=== PATIENT | female | born 1945 | race Caucasian/White ===

== ENCOUNTER 2017-07-09 01:02 | Emergency (ER) | payer MEDICARE ==
[~2017-07-09] VITALS: Ht 172.7 cm; Wt 74.4 kg
[~2017-07-09 01:02] MED LIST: ALBU2.5V12 NEB; ALBU8.5H7 IH; ARFO15VI NEB; ATOR20TA PO; CLON0.1T PO; HYDR25TA9 PO; IPRA0.2S34 IH; LISI-410 PO; LISI10TA2 PO; LORA1TAB PO; NIFE30TA9 PO; PRAV20TA2 PO; PRED10TA PO; PRED5TAB PO
[2017-07-09] MEDS ORDERED: LACTATED RINGERS IV STA (01:14)
--- NOTE | 2017-07-09 01:17 | ER.PDOC ---
General Chief Complaint: Abdomen Pain Stated Complaint: ABD PAIN Time seen by MD: 01:16 Source: patient Exam Limitations: no limitations History of Present Illness Initial Comments Upper abdominal pain Timing/Duration: 1-3 hours Severity/Quality: moderate Radiation: no radiation Associated Symptoms: denies symptoms Exacerbated by: nothing Relieved By: nothing Allergies: Coded Allergies: Penicillins (Verified Allergy, Severe, BLACKS OUT, 10/11/16) meperidine HCl (Verified Allergy, Severe, STOPS HEART, 10/11/16) codeine (Verified Allergy, Intermediate, RASH, 10/11/16) Home Meds Reported Medications Albuterol Sulfate (ALBUTEROL SULFATE) 2.5 Mg/0.5 Ml Vial.neb, 1 VIAL NEB Q6 Y for SHORTNESS OF BREATH, #120 VIAL 5 Refills 09/20/16 Prednisone (PREDNISONE) 10 Mg Tablet, 10 MG PO DAILY Y for ASTHMA ATTACK, TABLET 07/15/16 Prednisone (PREDNISONE) 5 Mg Tablet, 5 MG PO DAILY Y for COLD, TABLET X7 DAYS 07/15/16 Lorazepam (LORAZEPAM) 1 Mg Tablet, 1 TAB PO DAILY Y for ANXIETY, #90 TAB 07/15/16 Hydrochlorothiazide (HYDROCHLOROTHIAZIDE) 25 Mg Tablet, 1 TAB PO DAILY, #30 TAB 5 Refills 07/15/16 Atorvastatin 20MG (LIPITOR 20MG) 20 Mg Tablet, 1 TAB PO HS, #90 TAB 1 Refill 07/15/16 Arformoterol Tartrate (BROVANA) 15 Mcg/2 Ml Vial.neb, 1 VIAL NEB BID, #320 MILLILITER 3 Refills 05/28/16 Ipratropium [place] (IPRATROPIUM BROMIDE) 0.2 Mg/1 Ml Solution, 0.2 MG IH BID 07/27/15 Albuterol Sulfate (PROAIR HFA) 8.5 Gm Hfa.aer.ad, 8.5 GM IH QID 07/27/15 Vital Signs First Vital Signs Date Time Temp Pulse Resp B/P (MAP) Pulse Ox O2 Delivery O2 Flow Rate FiO2 07/09/17 01:03 98.2 120 16 94 Last Vital Signs Date Time Temp Pulse Resp B/P (MAP) Pulse Ox O2 Delivery O2 Flow Rate FiO2 07/09/17 01:08 98.2 07/09/17 01:03 120 16 94 Past Medical History Medical History: cardiac problems, COPD, hypertension Surgical History: cardiac cath, stent Social History Smoking: non-smoker Alcohol Use: none Drug Use: none Constitutional: no symptoms reported EENTM: no symptoms reported Respiratory: no symptoms reported Cardiovascular: no symptoms reported Gastrointestinal: see HPI All Other Systems: Reviewed and Negative Physical Exam General Appearance: No Apparent Distress, WD/WN HEENT: PERRL/EOMI, Normal ENT Inspection, TMs Normal, Pharynx Normal Neck: Non-Tender, Full Range of Motion, Supple, Normal Inspection Respiratory: chest non-tender, lungs clear, normal breath sounds, no respiratory distress, no accessory muscle use Cardiovascular: Normal Peripheral Pulses, Regular Rate, Rhythm, No Edema, No Gallop, No JVD, No Murmur Gastrointestinal: Normal Bowel Sounds, No Organomegaly, No Pulsatile Mass, Tenderness (mild tenderness upper abdomen) Back: Normal Inspection, No CVA Tenderness, No Vertebral Tenderness Extremities: Normal Range of Motion, Non-Tender, Normal Inspection, No Pedal Edema, No Calf Tenderness, Normal Capillary Refill, Pelvis Stable 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, No Motor/Sensory Deficits, Alert, Normal Mood/Affect, Oriented x 3 Skin: Normal Color, Warm/Dry Lymphatic: No Adenopathy EKG/XRAY/CT/US EKG Comments: sinus tachycardia CT Comments: Nothing acute on CT abdomen/pelvis Course Blood Pressure Systolic: 161 Blood Pressure Diastolic: 83 Blood Pressure Mean: 109 Departure Time of Disposition: 03:46 Disposition: 01 HOME, SELF-CARE Impression: Primary Impression: Nonspecific abdominal pain Additional Impression: Hypokalemia Condition: Stable Referrals: KALPESH BARRIOS CORPORATE FINANCIAL ANALYST (PCP) PRIMARY CARE PROVIDER Additional Instructions: Nexium Potassium chloride F/U with your PCP in 2-3 days Duration or Time Spent with Pa: 2 hours Problem Qualifiers EVA MOSELEY MD Jul 09, 2017 01:17
[2017-07-09 01:28] LABS: BASOPHIL # 0.1 10^3/uL (0.0-0.1); BASOPHIL % 0.6 % (0.0-0.2); EOSINOPHIL # 0.5 10^3/uL (0.0-0.2); EOSINOPHIL % 4.8 % (0.0-5.0); HEMOGLOBIN 12.4 g/dL (12.0-15.0); LYMPHOCYTES # 3.2 10^3/uL (1.0-4.8); LYMPHOCYTES % 29.2 % (24.0-44.0); MEAN CELL HGB 29.3 pg (26-34); MEAN CELL HGB CONCENTRATION 31.5 g/dL (33-37); MEAN CORP VOLUME 93.1 fL (78-100); MEAN PLATELET VOLUME 10.7 fL (7.8-11.0); MONOCYTES # 1.1 10^3/uL (0.3-0.8); MONOCYTES % 9.7 % (5.0-12.0); NEUTROPHILS % 55.3 % (41.0-85.0); RED CELL DISTRIBUTION WIDTH 15.4 % (11.5-14.5); WHITE BLOOD CELL 10.9 10^3/uL (4.5-11.0)
[2017-07-09 01:36] LABS: BILIRUBIN,URINE NEGATIVE (NEGATIVE); UROBILINOGEN,URINE NORMAL (NEGATIVE)
--- NOTE | 2017-07-09 01:40 | PCM.EKG ---
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
[2017-07-09 01:46] LABS: CALCIUM 9.9 mg/dL (8.4-10.5); CARBON DIOXIDE 30.1 mmol/L (20.0-32)
[2017-07-09 01:48] LABS: APPEARANCE,URINE CLEAR (CLEAR); UA COLOR YELLOW (YELLOW)
[2017-07-09 02:10] VITALS: BP 141/76
[2017-07-09 03:01] LABS: WBC,URINE 0-2 WBC/HPF (0-2)
[2017-07-09 03:10] VITALS: BP 141/76
--- NOTE | 2017-07-09 03:36 | DIREP ---
PROCEDURE:CT ABDOMEN/PELVIS W/O CONTRAST COMPARISON:[facility], CT, CT ABD/PELVIS W/ CONTRAST, 05/28/2016, 09:24 AM. INDICATIONS:Upper abdominal pain TECHNIQUE:Axial images were created through the abdomen and pelvis without intravenous contrast material. No oral contrast was administered. Sagittal and coronal reconstructions were performed from source images. FINDINGS: LUNG BASES:Normal. No visible pulmonary or pleural disease. LIVER:Normal. No significant liver lesions are identified. BILIARY:Normal. No visible dilatation or calcification. PANCREAS:Normal. No lesion, fluid collection, ductal dilatation, or atrophy. SPLEEN:Normal. No enlargement or focal lesion. ADRENALS:Normal. No mass or enlargement. URINARY TRACT:Normal. No urinary calculi pre No focal lesions or hydronephrosis. AORTA/VASCULAR:There are aortic atherosclerotic calcifications present. No aneurysm. RETROPERITONEUM:Normal. No mass or adenopathy. BOWEL/MESENTERY:Prior appendectomy. Prior distal colectomy. No obstruction, free air, or free fluid. ABDOMINAL WALL:Inferior ventral hernia repair since the prior examination. Supraumbilical ventral hernia containing only fat. PELVIC ORGANS:The uterus is surgically absent. No visible mass. BONES:Normal for age. No bony lesion or acute fracture. OTHER:Moderate size hiatal hernia. CONCLUSION: 1. No acute abdomen/pelvis abnormalities. 2. Moderate size hiatal hernia. 3. Fat containing supraumbilical ventral hernia. 4. Prior appendectomy, distal colectomy, ventral hernia repair, and hysterectomy. Dictated by: Willian Garcia M.D. on 07/09/2017 at 03:24 AM
[2017-07-09] MEDS ORDERED: KLOR-CON 10 PO STA (03:48)
[2017-07-09] MEDS ORDERED: LIDOCAINE VISCOUS MM STA (03:51)
[2017-07-09] MEDS ORDERED: MYLANTA PO STA (03:51)
[2017-07-09] MEDS ORDERED: LIDOCAINE VISCOUS ONE (03:53)
[2017-07-09] MEDS ORDERED: MYLANTA ONE (03:54)
[2017-07-09] MEDS ORDERED: KLOR-CON 10 PO ONE (03:54)
[2017-07-09 04:06] VITALS: BP 141/76
== END 2017-07-09 04:02 | disposition home or self-care (01) ==
LOC: EDBD 01:02 → ER 01:02
DX: R10.10 Upper abdominal pain, unspecified (principal); E87.6 Hypokalemia; I10 Essential (primary) hypertension; J44.9 Chronic obstructive pulmonary disease, unspecified; Z88.0 Allergy status to penicillin; Z88.5 Allergy status to narcotic agent; Z79.899 Other long term (current) drug therapy
CPT/HCPCS: 36415; 74176; 80053; 81000; 83690; 85025; 85610; 85730; 93005; 99285; J3480; J3490

== ENCOUNTER 2017-08-19 17:21 | Emergency (ER) | payer MEDICARE ==
[~2017-08-19] VITALS: Ht 170.2 cm; Wt 91.2 kg
[2017-08-19 17:44] VITALS: BP 151/85
[2017-08-19] MEDS ORDERED: DUONEB 0.5 MG-3 MG/3 ML SOLN IH STA (17:56)
[2017-08-19] MEDS ORDERED: DECADRON IH STA (17:56)
--- NOTE | 2017-08-19 17:59 | ER.PDOC ---
General Chief Complaint: Dyspnea/Respdistress Stated Complaint: SHORT OF BREATH Time seen by MD: 17:57 Source: patient Exam Limitations: no limitations History of Present Illness Initial Comments SOB for past few days Severity: moderate Prior Episodes/Possible Cause: occasional episodes, chronic episodes Modifying Factors: improves with albuterol nebulizer Associated Symptoms: cough Prior symptoms/Treatment: Similar symptoms previous Allergies: Coded Allergies: Penicillins (Verified Allergy, Severe, BLACKS OUT, 10/11/16) meperidine HCl (Verified Allergy, Severe, STOPS HEART, 10/11/16) codeine (Verified Allergy, Intermediate, RASH, 10/11/16) Home Meds Reported Medications Albuterol Sulfate (ALBUTEROL SULFATE) 2.5 Mg/0.5 Ml Vial.neb, 1 VIAL NEB Q6 Y for SHORTNESS OF BREATH, #120 VIAL 5 Refills 09/20/16 Prednisone (PREDNISONE) 10 Mg Tablet, 10 MG PO DAILY Y for ASTHMA ATTACK, TABLET 07/15/16 Prednisone (PREDNISONE) 5 Mg Tablet, 5 MG PO DAILY Y for COLD, TABLET X7 DAYS 07/15/16 Lorazepam (LORAZEPAM) 1 Mg Tablet, 1 TAB PO DAILY Y for ANXIETY, #90 TAB 07/15/16 Hydrochlorothiazide (HYDROCHLOROTHIAZIDE) 25 Mg Tablet, 1 TAB PO DAILY, #30 TAB 5 Refills 07/15/16 Atorvastatin 20MG (LIPITOR 20MG) 20 Mg Tablet, 1 TAB PO HS, #90 TAB 1 Refill 07/15/16 Arformoterol Tartrate (BROVANA) 15 Mcg/2 Ml Vial.neb, 1 VIAL NEB BID, #320 MILLILITER 3 Refills 05/28/16 Ipratropium [place] (IPRATROPIUM BROMIDE) 0.2 Mg/1 Ml Solution, 0.2 MG IH BID 07/27/15 Albuterol Sulfate (PROAIR HFA) 8.5 Gm Hfa.aer.ad, 8.5 GM IH QID 07/27/15 Past Medical History Medical History: COPD, hypertension Surgical History: appendectomy, hysterectomy, other LMP (females 10-50): hysterectomy Social History Smoking: non-smoker Alcohol Use: none Drug Use: none Review of Systems Constitutional: no symptoms reported Respiratory: see HPI Cardiovascular: no symptoms reported Gastrointestinal: no symptoms reported Genitourinary: no symptoms reported Musculoskeletal: no symptoms reported All Other Systems: Reviewed and Negative Physical Exam General Appearance: No Apparent Distress, WD/WN HEENT: PERRL/EOMI, Normal ENT Inspection, TMs Normal, Pharynx Normal Neck: Non-Tender, Full Range of Motion, Supple, Normal Inspection Respiratory: chest non-tender, lungs clear, no respiratory distress, decreased breath sounds Cardiovascular: Normal Peripheral Pulses, Regular Rate, Rhythm, No Edema, No Gallop, No JVD, No Murmur Gastrointestinal: Normal Bowel Sounds, No Organomegaly, No Pulsatile Mass, Non Tender, Soft Extremities: Normal Range of Motion, Non-Tender, Normal Inspection, No Pedal Edema, No Calf Tenderness, Normal Capillary Refill 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, No Motor/Sensory Deficits, Alert, Normal Mood/Affect, Oriented x 3 Skin: Normal Color, Warm/Dry Lymphatic: No Adenopathy Results/Orders Results/Orders Laboratory Tests Test 08/19/17 18:05 White Blood Count 9.7 10^3/uL (4.5-11.0) Red Blood Count 4.23 10^6/uL (4.00-5.20) Hemoglobin 12.1 g/dL (12.0-15.0) Hematocrit 39.0 % (36.0-46.0) Mean Corpuscular Volume 92.2 fL (78-100) Mean Corpuscular Hemoglobin 28.6 pg (26-34) Mean Corpuscular Hemoglobin Concent 31.0 g/dL (33-37) Red Cell Distribution Width 15.5 % (11.5-14.5) Platelet Count 331 10^3/uL (150-400) Mean Platelet Volume 10.3 fL (7.8-11.0) Neutrophils (%) (Auto) 68.2 % (41.0-85.0) Lymphocytes (%) (Auto) 12.5 % (24.0-44.0) Monocytes (%) (Auto) 8.2 % (5.0-12.0) Neutrophils # (Auto) 6.6 10^3/uL (1.8-7.7) Lymphocytes # (Auto) 1.2 10^3/uL (1.0-4.8) Monocytes # (Auto) 0.8 10^3/uL (0.3-0.8) Absolute Immature Granulocyte (auto 0.06 10^3 u/L (0-2) Eosinophils % 9.9 % (0.0-5.0) Basophils % 0.6 % (0.0-0.2) Basophils # 0.1 10^3/uL (0.0-0.1) Eosinophil Count 1.0 10^3/uL (0.0-0.2) Prothrombin Time 9.8 SEC (9.8-11.9) Prothrombin Time INR (Non-Therap) 1.0 Activated Partial Thromboplast Time 22.5 SEC (24.67-30.72) D-Dimer 0.57 mg/L (0.19-0.49) Sodium Level 142 mmol/L (132-145) Potassium Level 4.0 mmol/L (3.6-5.2) Chloride Level 105.0 mmol/L (96-109) Carbon Dioxide Level 26.1 mmol/L (20.0-32) Anion Gap 14.9 Blood Urea Nitrogen 18 mg/dL (7-18) Creatinine 0.99 mg/dL (0.59-1.40) Estimated GFR () 66.7 (>/=60) BUN/Creatinine Ratio 18.0 Glucose Level 114 mg/dL (70-110) Calcium Level 10.1 mg/dL (8.4-10.5) Total Bilirubin 0.4 mg/dL (0.2-1.0) Aspartate Amino Transf (AST/SGOT) 14 U/L (0-35) Alanine Aminotransferase (ALT/SGPT) 21 U/L (12-78) Alkaline Phosphatase 116 U/L (50-136) Troponin I < 0.02 ng/mL (0.00-0.05) Pro-B-Type Natriuretic Peptide 49 pg/mL (0-125) Total Protein 7.2 g/dL (6.4-8.2) Albumin 3.5 g/dL (3.4-5.0) Globulin 3.7 Percent Immature Gran (Cell Imm) 0.60 % (0.00-0.50) Administered Medications Medications (Trade) Dose Ordered Sig/Mary Route PRN Reason Start Time Stop Time Status Last Admin Dose Admin Albuterol/ Ipratropium (Duoneb 0.5 Mg-3 Mg/3 ml Soln) 3 ml STAT STAT IH 08/19/17 17:56 08/19/17 17:57 DC 08/19/17 18:08 Dexamethasone Sodium Phosphate (Decadron) 4 mg STAT STAT IH 08/19/17 17:56 08/19/17 17:57 DC 08/19/17 18:08 Progress Progress Patient feeling better. EKG/XRAY/CT/US EKG Comments: Normal XRAY: chest (COPD) Departure Time of Disposition: 19:11 Disposition: 01 HOME, SELF-CARE Impression: Primary Impression: COPD exacerbation Condition: Improved Referrals: KALPESH BARRIOS INDUSTRIAL HEALTH AND SAFETY PROFESSOR (PCP) PRIMARY CARE PROVIDER Additional Instructions: Bactrim DS Prednisone Continue breathing treatments at home F/U with your PCP in 2-3 days Duration or Time Spent with Pa: 90 mins EVA MOSELEY MD Aug 19, 2017 17:59
[2017-08-19] MEDS ORDERED: DECADRON ONE (18:00)
[2017-08-19] MEDS ORDERED: DUONEB 0.5 MG-3 MG/3 ML SOLN IH ONE (18:00)
[2017-08-19 18:16] LABS: BASOPHIL # 0.1 10^3/uL (0.0-0.1); BASOPHIL % 0.6 % (0.0-0.2); EOSINOPHIL % 9.9 % (0.0-5.0); HEMOGLOBIN 12.1 g/dL (12.0-15.0); LYMPHOCYTES # 1.2 10^3/uL (1.0-4.8); LYMPHOCYTES % 12.5 % (24.0-44.0); MEAN CELL HGB 28.6 pg (26-34); MEAN CORP VOLUME 92.2 fL (78-100); MEAN PLATELET VOLUME 10.3 fL (7.8-11.0); MONOCYTES # 0.8 10^3/uL (0.3-0.8); MONOCYTES % 8.2 % (5.0-12.0); NEUTROPHIL # 6.6 10^3/uL (1.8-7.7); NEUTROPHILS % 68.2 % (41.0-85.0); RED CELL DISTRIBUTION WIDTH 15.5 % (11.5-14.5); WHITE BLOOD CELL 9.7 10^3/uL (4.5-11.0)
--- NOTE | 2017-08-19 18:23 | PCM.EKG ---
[facility] Test Date: 2017-08-19 Test Time: 18:09:00 Pat Name: SUN ELLIS Department: Room: Gender: F Emergency Medcl Emt: : 1945 Requested By: EVA MOSELEY Order Number: [id number] Reading MD: Eva MOSELEY Measurements Intervals [place] Rate: 82 P: 61 [place]: 154 QRS: 29 QRSD: 88 T: 61 QT: 374 QTc: 436 Interpretive Statements Normal sinus rhythm Normal ECG Compared to ECG 07/09/2017 01:39:04 Sinus tachycardia no longer present Left anterior fascicular block no longer present Myocardial infarct finding no longer present Electronically Signed On 08-23-2017 5:55:17 CDT by Eva MOSELEY Please click the below link to view image of tracing.
--- NOTE | 2017-08-19 18:34 | DIREP ---
PROCEDURE:CHEST 1 VIEW COMPARISON:[facility], CR, XRAY CHEST SINGLE VW, 09/28/2016, 05:10 AM. INDICATIONS:n FINDINGS: LUNGS/PLEURA:Hyperinflation and chronic interstitial changes. No infiltrate or pleural effusion. CARDIAC:Borderline cardiac silhouette and normal pulmonary vascularity. Calcified tortuous aorta. MEDIASTINUM:Hiatal hernia. BONES:Mild degenerative changes. OTHER:No additional findings. CONCLUSION:COPD. No acute cardiopulmonary process or significant change. Dictated by: Park Osorio MD on 08/19/2017 at 06:30 PM
[2017-08-19 18:38] LABS: ALANINE AMINOTRANSFERASE(ML) 21 U/L (12-78); ALKALINE PHOSPHATASE 116 U/L (50-136); ASPARTATE AMINO TRANSFERASE 14 U/L (0-35); CALCIUM 10.1 mg/dL (8.4-10.5); CARBON DIOXIDE 26.1 mmol/L (20.0-32); GLUCOSE 114 mg/dL (70-110)
--- NOTE | 2017-08-19 19:28 | NUR ---
Patient sitting upright, voiced feeling better and ready to go home. Discharge instructions provided, prescription x2 provided. Patient connected self to portable Oxygen tank, and ambulated to waiting area to meet . Patient condition improved.
== END 2017-08-19 19:28 | disposition home or self-care (01) ==
LOC: ER 17:21
DX: J44.1 Chronic obstructive pulmonary disease with (acute) exacerbation (principal); I10 Essential (primary) hypertension; Z88.0 Allergy status to penicillin; Z88.5 Allergy status to narcotic agent; Z90.710 Acquired absence of both cervix and uterus; Z90.89 Acquired absence of other organs
CPT/HCPCS: 36415; 71045; 80053; 83880; 84484; 85025; 85379; 85610; 85730; 87040 ×2; 93005; 94640; 99285; J1100; J7620

== ENCOUNTER → 2018-04-26 | Outpatient (CLI) | payer MEDICARE ==
[~2018-04-26] MED LIST changes: +NIFE30TA15 PO; -NIFE30TA9 PO
--- NOTE | 2018-04-26 11:19 | DIREP ---
PROCEDURE:CHEST 2 VIEWS COMPARISON:[facility], CT, CT ABD/PELVIS W/O, 03/27/2018, 12:48 PM. [facility], CR, XRAY CHEST SINGLE VW, 08/19/2017, 06:06 PM. INDICATIONS:COPD, CHF, HHD FINDINGS: LUNGS/PLEURA:Mild emphysema. No significant pulmonary parenchymal abnormalities. No effusions. VASCULATURE:Normal. Unremarkable pulmonary vasculature. CARDIAC:Borderline cardiomegaly MEDIASTINUM:Atheromatous calcifications of the aortic arch. Moderate hiatal hernia BONES:Normal. No fracture or visible bony lesion. OTHER:Negative. CONCLUSION: Mild emphysema. Borderline cardiomegaly. Hiatal hernia Dictated by: Marty Ordoeñz M.D. on 04/26/2018 at 11:15 AM
== END | disposition home or self-care (01) ==
LOC: RAD 10:40
PROVIDERS: ATTEND Specialist
DX: J43.9 Emphysema, unspecified (principal); I11.0 Hypertensive heart disease with heart failure; I50.9 Heart failure, unspecified; K44.9 Diaphragmatic hernia without obstruction or gangrene; I70.0 Atherosclerosis of aorta
CPT/HCPCS: 71046

== ENCOUNTER 2018-05-03 05:33 | Emergency (ER) | payer MEDICARE ==
[~2018-05-03] VITALS: Ht 172.7 cm; Wt 76.2 kg
[2018-05-03 05:37] VITALS: BP 142/90
--- NOTE | 2018-05-03 05:38 | NUR ---
ARRIVAL PATIENT ARRIVED TO ED2 VIA GURNEY BY [facility], C/O OF SHORTNESS OF BREATH THAT STARTED THIS MORNING, ON EMS ARRIVAL PATIENT WAS TAKING A BREATHING TREATMENT AND GIVEN ONE MORE BREATHING TREATMENT BY EMS IN ROUTE TO THE ED. NO DISTRESS NOTED.
[2018-05-03] MEDS ORDERED: SOLU-MEDROL IV STA (05:45)
[2018-05-03] MEDS ORDERED: DUONEB 0.5 MG-3 MG/3 ML SOLN IH STA (05:45)
[2018-05-03 05:57] LABS: BASOPHIL % 0.3 % (0.0-0.2); EOSINOPHIL # 0.1 10^3/uL (0.0-0.2); HEMOGLOBIN 9.8 g/dL (12.0-15.0); LYMPHOCYTES # 1.8 10^3/uL (1.0-4.8); LYMPHOCYTES % 13.9 % (24.0-44.0); MEAN CELL HGB 25.8 pg (26-34); MEAN CELL HGB CONCENTRATION 29.6 g/dL (33-37); MEAN CORP VOLUME 87.1 fL (78-100); MONOCYTES # 1.1 10^3/uL (0.3-0.8); MONOCYTES % 8.4 % (5.0-12.0); NEUTROPHIL # 9.7 10^3/uL (1.8-7.7); NEUTROPHILS % 75.8 % (41.0-85.0); RED CELL DISTRIBUTION WIDTH 17.5 % (11.5-14.5); WHITE BLOOD CELL 12.8 10^3/uL (4.5-11.0)
[2018-05-03] MEDS ORDERED: DUONEB 0.5 MG-3 MG/3 ML SOLN IH ONE (06:03)
[2018-05-03] MEDS ORDERED: SOLU-MEDROL ONE (06:07)
[2018-05-03 06:18] LABS: CALCIUM 10.1 mg/dL (8.4-10.5); CARBON DIOXIDE 25.1 mmol/L (20.0-32)
[2018-05-03] MEDS ORDERED: NIFE30TA15 PO (06:18)
[2018-05-03] MEDS ORDERED: OMEP40CA6 PO (06:18)
--- NOTE | 2018-05-03 06:18 | DIREP ---
PROCEDURE:CHEST 1 VIEW COMPARISON:[facility], CT, CT ABD/PELVIS W/O, 03/27/2018, 12:48 PM. [facility], CR, XRAY CHEST 2 VWS, 04/26/2018, 10:40 AM. [facility], CR, XRAY CHEST SINGLE VW, 08/19/2017, 06:06 PM. INDICATIONS:sob FINDINGS: LUNGS/PLEURA:Mild hyperinflation with some reticular opacities in the lungs may suggest underlying emphysema. Rounded opacity in the left lung base may be artifactual given short interval appearance, measures approximately 3-4 cm, may suggest an infiltrate. 1.3 cm subtle nodular opacity in the right lung, midportion. Hazy opacity at the left costophrenic angle may be related to overlapping structures, underlying infiltrate is not excluded. No effusions. No pneumothorax. VASCULATURE:Unremarkable pulmonary vasculature. CARDIAC:Cardiomediastinal contours are unchanged. MEDIASTINUM:No visible mass or adenopathy. Calcified atherosclerosis in the thoracic arch. BONES:No fracture or visible bony lesion. OTHER:Hiatal hernia. CONCLUSION: 1. Rounded opacity in the left lung base, may be artifactual given short interval appearance. Additional smaller nodule in the right lung. Consider CT chest when clinically appropriate. Dictated by: Gianna Bess MD on 05/03/2018 at 06:12 AM
--- NOTE | 2018-05-03 06:49 | ER.PDOC ---
General Chief Complaint: Dyspnea/Respdistress Stated Complaint: ASTHMA ATTACK Time seen by MD: 05:42 Source: patient, family History of Present Illness Initial Comments Pt with h/o COPD and ASTHMA came with dyspnea and wheezing that started last night. Timing/Duration: 4-6 hours Severity: moderate Activities at Onset: activity/exertion Prior Episodes/Possible Cause: occasional episodes Modifying Factors: improves with activity Associated Symptoms: cough Prior symptoms/Treatment: Similar symptoms previous Allergies: Coded Allergies: Penicillins (Verified Allergy, Severe, BLACKS OUT, 10/11/16) meperidine HCl (Verified Allergy, Severe, STOPS HEART, 10/11/16) codeine (Verified Allergy, Intermediate, RASH, 10/11/16) Home Meds Reported Medications Nifedipine (NIFEDIPINE ER) 30 Mg Tablet.er, 1 TAB PO DAILY, #90 TAB 3 Refills 05/03/18 Omeprazole (OMEPRAZOLE) 40 Mg Capsule.dr, 1 CAP PO DAILY, #90 CAP 3 Refills 05/03/18 Albuterol Sulfate (ALBUTEROL SULFATE) 2.5 Mg/0.5 Ml Vial.neb, 1 VIAL NEB Q6 PRN for SHORTNESS OF BREATH, #120 VIAL 5 Refills 09/20/16 Prednisone (PREDNISONE) 5 Mg Tablet, 5 MG PO DAILY PRN for COLD, TABLET X7 DAYS 07/15/16 Lorazepam (LORAZEPAM) 1 Mg Tablet, 1 TAB PO DAILY PRN for ANXIETY, #90 TAB 07/15/16 Hydrochlorothiazide (HYDROCHLOROTHIAZIDE) 25 Mg Tablet, 1 TAB PO DAILY, #30 TAB 5 Refills 07/15/16 Atorvastatin 20MG (LIPITOR 20MG) 20 Mg Tablet, 1 TAB PO HS, #90 TAB 1 Refill 07/15/16 Arformoterol Tartrate (BROVANA) 15 Mcg/2 Ml Vial.neb, 1 VIAL NEB BID, #320 MILLILITER 3 Refills 05/28/16 Ipratropium [place] (IPRATROPIUM BROMIDE) 0.2 Mg/1 Ml Solution, 0.2 MG IH BID 07/27/15 Albuterol Sulfate (PROAIR HFA) 8.5 Gm Hfa.aer.ad, 8.5 GM IH QID 07/27/15 Discontinued Reported Medications Prednisone (PREDNISONE) 10 Mg Tablet, 10 MG PO DAILY PRN for ASTHMA ATTACK, TABLET 07/15/16 Past Medical History Medical History: asthma, COPD, high cholesterol, hypertension Surgical History: hysterectomy, knee, other Family History Significant Family History: no pertinent family hx Social History Smoking: non-smoker Alcohol Use: none Drug Use: none Reviewed Nursing Reviewed: Nursing Assessment Review of Systems Constitutional: see HPI EENTM: no symptoms reported Respiratory: cough, shortness of breath, wheezing Cardiovascular: no symptoms reported Gastrointestinal: no symptoms reported Genitourinary: no symptoms reported Musculoskeletal: no symptoms reported Skin: no symptoms reported Psychiatric/Neurological: no symptoms reported Endocrine: no symptoms reported Hematologic/Lymphatic: no symptoms reported All Other Systems: Reviewed and Negative Physical Exam General Appearance: No Apparent Distress, Anxious HEENT: PERRL/EOMI, Normal ENT Inspection, Pharynx Normal Neck: Non-Tender, Full Range of Motion, Supple Respiratory: chest non-tender, no respiratory distress, wheezing Cardiovascular: Normal Peripheral Pulses, Regular Rate, Rhythm, No Edema Gastrointestinal: Normal Bowel Sounds, No Organomegaly, No Pulsatile Mass, Non Tender Extremities: Normal Range of Motion, Non-Tender, Normal Inspection Neurologic/Psychiatric: No Motor/Sensory Deficits Skin: Normal Color, Warm/Dry Lymphatic: No Adenopathy Results/Orders Results/Orders Laboratory Tests Test 05/03/18 05:49 White Blood Count 12.8 10^3/uL (4.5-11.0) Red Blood Count 3.80 10^6/uL (4.00-5.20) Hemoglobin 9.8 g/dL (12.0-15.0) Hematocrit 33.1 % (36.0-46.0) Mean Corpuscular Volume 87.1 fL (78-100) Mean Corpuscular Hemoglobin 25.8 pg (26-34) Mean Corpuscular Hemoglobin Concent 29.6 g/dL (33-37) Red Cell Distribution Width 17.5 % (11.5-14.5) Platelet Count 357 10^3/uL (150-400) Mean Platelet Volume 10.0 fL (7.8-11.0) Neutrophils (%) (Auto) 75.8 % (41.0-85.0) Lymphocytes (%) (Auto) 13.9 % (24.0-44.0) Monocytes (%) (Auto) 8.4 % (5.0-12.0) Neutrophils # (Auto) 9.7 10^3/uL (1.8-7.7) Lymphocytes # (Auto) 1.8 10^3/uL (1.0-4.8) Monocytes # (Auto) 1.1 10^3/uL (0.3-0.8) Absolute Immature Granulocyte (auto 0.08 10^3 u/L (0-2) Eosinophils % 1.0 % (0.0-5.0) Basophils % 0.3 % (0.0-0.2) Basophils # 0.0 10^3/uL (0.0-0.1) Eosinophil Count 0.1 10^3/uL (0.0-0.2) Sodium Level 143 mmol/L (132-145) Potassium Level 3.9 mmol/L (3.6-5.2) Chloride Level 106.0 mmol/L (96-109) Carbon Dioxide Level 25.1 mmol/L (20.0-32) Anion Gap 15.8 Blood Urea Nitrogen 23 mg/dL (7-18) Creatinine 0.94 mg/dL (0.59-1.40) Estimated GFR () 70.6 (>/=60) BUN/Creatinine Ratio 24.0 Glucose Level 105 mg/dL (70-110) Calcium Level 10.1 mg/dL (8.4-10.5) Total Bilirubin 0.4 mg/dL (0.2-1.0) Aspartate Amino Transf (AST/SGOT) 16 U/L (0-35) Alanine Aminotransferase (ALT/SGPT) 26 U/L (12-78) Alkaline Phosphatase 89 U/L (50-136) Pro-B-Type Natriuretic Peptide 52 pg/mL (0-125) Total Protein 7.0 g/dL (6.4-8.2) Albumin 3.6 g/dL (3.4-5.0) Globulin 3.4 Percent Immature Gran (Cell Imm) 0.60 % (0.00-0.50) Administered Medications Medications (Trade) Dose Ordered Sig/Mary Route PRN Reason Start Time Stop Time Status Last Admin Dose Admin Albuterol/ Ipratropium (Duoneb 0.5 Mg-3 Mg/3 ml Soln) 3 ml STAT STAT IH 05/03/18 05:45 05/03/18 05:49 DC 05/03/18 06:14 Methylprednisolone Sodium Succinate (Solu-Medrol) 125 mg STAT STAT IV 05/03/18 05:45 05/03/18 05:49 DC 05/03/18 06:13 Progress Progress Pt was given Duoneb and Solumedrol. CXR was questinable. CT chest ordered. Care transfered to Dr Cuevas at 7. EKG/XRAY/CT/US EKG: NSR Departure Time of Disposition: 07:35 Disposition: 01 HOME, SELF-CARE Impression: Primary Impression: COPD (chronic obstructive pulmonary disease) Condition: Improved Referrals: KALPESH BARRIOS RELATIONSHIP EXECUTIVE (PCP) PRIMARY CARE PROVIDER Comments admission discussed Duration or Time Spent with Pa: 2 hrs GUANAKITO LUCAS MD May 03, 2018 06:49 MARQUES HENAO MD May 03, 2018 07:20
--- NOTE | 2018-05-03 06:56 | NUR ---
CAT SCAN PATIENT TO CAT SCAN VIA SHAYYRBRENDA WITH MITCHEL FROM RADIOLOGY.
[2018-05-03 07:03] VITALS: BP 143/91
--- NOTE | 2018-05-03 07:03 | NUR ---
CAT SCAN PATIENT BACK FROM CAT SCAN.
[2018-05-03] MEDS ORDERED: LASIX IV STA (07:15)
--- NOTE | 2018-05-03 07:25 | DIREP ---
PROCEDURE:CT CHEST W/O COMPARISON:[facility], CT, CT-ABDOMEN /PELVIS W/O CONTRAST, 05/31/2012, 00:08 AM. [facility], CT, CT ABD/PELVIS W/O, 07/09/2017, 01:31 AM. [facility], CT, CT ABD/PELVIS W/O, 03/27/2018, 12:48 PM. INDICATIONS:sob TECHNIQUE:Helical sections through the chest were performed from the lung apices through the diaphragms without IV contrast. Sagittal and coronal reconstructions are obtained from source images. FINDINGS: LUNGS:Centrilobular and paraseptal emphysema. New 4 mm nodular density on a background of atelectasis within the posterior aspect of the left lower lobe on series 4, image 44. Short-term follow-up recommended to ensure stability. Nodular foci within the left upper lobe and right middle lobe are stable dating back to 2012, compatible with benign process. PLEURA:Normal. No mass or effusion. CARDIAC:Coronary artery disease. No enlargement, pericardial thickening, or valvular calcification. MEDIASTINUM:Large hiatal hernia. TEO:No mediastinal or hilar lymphadenopathy. AORTA:Atherosclerosis. No aneurysm. CHEST WALL:Normal. No mass or axillary adenopathy. LIMITED ABDOMEN:Normal. Limited images of the upper abdomen are unremarkable. BONES:Osteopenia. No bony lesion or acute fracture. OTHER:Negative. CONCLUSION: 1. Chronic obstructive pulmonary disease type changes with new focus of nodular airspace disease in the left lower lobe posteriorly. Recommend short-term interval follow-up. 2. No acute consolidation. 3. Coronary artery disease Dictated by: Cristi Escobedo DO on 05/03/2018 at 07:13 AM
[2018-05-03] MEDS ORDERED: LASIX ONE (07:29)
[2018-05-03 08:04] VITALS: BP 134/87
[2018-05-03 08:19] VITALS: BP 134/87
--- NOTE | 2018-05-03 10:27 | PCM.EKG ---
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
== END 2018-05-03 08:04 | disposition home or self-care (01) ==
LOC: ER 05:33 → EDBD 05:33 → ER 08:04
DX: J44.9 Chronic obstructive pulmonary disease, unspecified (principal); E78.00 Pure hypercholesterolemia, unspecified; I10 Essential (primary) hypertension; Z90.710 Acquired absence of both cervix and uterus; Z88.0 Allergy status to penicillin; Z88.5 Allergy status to narcotic agent; Z79.899 Other long term (current) drug therapy
CPT/HCPCS: 36415; 71045; 71250; 80053; 82550; 82553; 83880; 84484; 85025; 93005; 94640; 96374; 96375; 99284; J2930; J7620; J1940

== ENCOUNTER 2018-05-05 01:14 | Emergency (ER) | payer MEDICARE ==
[~2018-05-05] VITALS: Ht 152.4 cm; Wt 84.5 kg
[~2018-05-05 01:14] MED LIST changes: +OMEP40CA6 PO
[2018-05-05] MEDS ORDERED: LACTATED RINGERS 1,000 ML ONE (01:32)
[2018-05-05] MEDS ORDERED: ZOFRAN ONE (01:32)
[2018-05-05] MEDS ORDERED: ZOFRAN IV STA (01:33)
[2018-05-05] MEDS ORDERED: MORPHINE SULFATE ONE (01:33)
[2018-05-05] MEDS ORDERED: LACTATED RINGERS 1,000 ML IV STA (01:33)
[2018-05-05] MEDS ORDERED: MORPHINE SULFATE IV STA (01:33)
--- NOTE | 2018-05-05 01:36 | ER.PDOC ---
General Chief Complaint: Requesting Medical Care Stated Complaint: ABD PAIN Time seen by MD: 01:34 Source: patient Exam Limitations: no limitations History of Present Illness Initial Comments Generalized abdominal pain Timing/Duration: 1-3 hours Severity/Quality: moderate Radiation: no radiation Associated Symptoms: diarrhea, nausea/vomiting Exacerbated by: nothing Relieved By: nothing Allergies: Coded Allergies: Penicillins (Verified Allergy, Severe, BLACKS OUT, 10/11/16) meperidine HCl (Verified Allergy, Severe, STOPS HEART, 10/11/16) codeine (Verified Allergy, Intermediate, RASH, 10/11/16) Home Meds Reported Medications Nifedipine (NIFEDIPINE ER) 30 Mg Tablet.er, 1 TAB PO DAILY, #90 TAB 3 Refills 05/03/18 Omeprazole (OMEPRAZOLE) 40 Mg Capsule.dr, 1 CAP PO DAILY, #90 CAP 3 Refills 05/03/18 Albuterol Sulfate (ALBUTEROL SULFATE) 2.5 Mg/0.5 Ml Vial.neb, 1 VIAL NEB Q6 PRN for SHORTNESS OF BREATH, #120 VIAL 5 Refills 09/20/16 Prednisone (PREDNISONE) 5 Mg Tablet, 5 MG PO DAILY PRN for COLD, TABLET X7 DAYS 07/15/16 Lorazepam (LORAZEPAM) 1 Mg Tablet, 1 TAB PO DAILY PRN for ANXIETY, #90 TAB 07/15/16 Hydrochlorothiazide (HYDROCHLOROTHIAZIDE) 25 Mg Tablet, 1 TAB PO DAILY, #30 TAB 5 Refills 07/15/16 Atorvastatin 20MG (LIPITOR 20MG) 20 Mg Tablet, 1 TAB PO HS, #90 TAB 1 Refill 07/15/16 Arformoterol Tartrate (BROVANA) 15 Mcg/2 Ml Vial.neb, 1 VIAL NEB BID, #320 MILLILITER 3 Refills 05/28/16 Ipratropium [place] (IPRATROPIUM BROMIDE) 0.2 Mg/1 Ml Solution, 0.2 MG IH BID 07/27/15 Albuterol Sulfate (PROAIR HFA) 8.5 Gm Hfa.aer.ad, 8.5 GM IH QID 07/27/15 Discontinued Reported Medications Prednisone (PREDNISONE) 10 Mg Tablet, 10 MG PO DAILY PRN for ASTHMA ATTACK, TABLET 07/15/16 Vital Signs First Vital Signs Date Time Temp Pulse Resp B/P (MAP) Pulse Ox O2 Delivery O2 Flow Rate FiO2 05/03/18 08:19 108 Last Vital Signs Date Time Temp Pulse Resp B/P (MAP) Pulse Ox O2 Delivery O2 Flow Rate FiO2 05/03/18 08:19 108 Past Medical History Medical History: COPD Surgical History: hysterectomy, knee, other Social History Drug Use: none Constitutional: no symptoms reported EENTM: no symptoms reported Respiratory: no symptoms reported Cardiovascular: no symptoms reported Gastrointestinal: see HPI All Other Systems: Reviewed and Negative Physical Exam General Appearance: No Apparent Distress, WD/WN Neck: Non-Tender, Full Range of Motion, Supple, Normal Inspection Respiratory: chest non-tender, lungs clear, normal breath sounds, no respiratory distress, no accessory muscle use Cardiovascular: Normal Peripheral Pulses, Regular Rate, Rhythm, No Edema, No Gallop, No JVD, No Murmur Gastrointestinal: Normal Bowel Sounds, No Organomegaly, No Pulsatile Mass, Guarding, Tenderness (generalized), Hernia (periumbilical) Back: Normal Inspection, No CVA Tenderness, No Vertebral Tenderness Extremities: Normal Range of Motion, Non-Tender, Normal Inspection, No Pedal Edema, No Calf Tenderness, Normal Capillary Refill, Pelvis Stable Neurologic/Psychiatric: electronic semiconductor processor II-XII NML as Tested, No Motor/Sensory Deficits, Alert, Normal Mood/Affect, Oriented x 3 Skin: Normal Color, Warm/Dry Lymphatic: No Adenopathy Progress Progress CT abdomen/Pelvis: Prior appendectomy and distal colectomy with bowel anastomotic sutures. 2. Periumbilical hernia containing fat and portion of the transverse colon. 3. Suspected mild transverse colonic wall thickening. Clinical correlation for colitis is recommended. 4. Small hepatic and left renal cysts. 5. Moderately large sliding-type hiatal hernia. Course Sepsis Screening Results: Posi: POSITIVE SEPSIS RISK Departure Time of Disposition: 03:43 Disposition: 01 HOME, SELF-CARE Impression: Primary Impression: Gastroenteritis Additional Impression: Periumbilical hernia Condition: Stable Hospital Course Patient feeling better. Referrals: [facility] [employer] DEPARTMENT MANAGER (PCP) PRIMARY CARE PROVIDER Additional Instructions: Zofran Cipro Flagyl Tramadol Start feeding with clear liquids and advance diet as tolerated F/U with PCP in 2-3 days F/U with Dr. Leary next week Duration or Time Spent with Pa: 90 mins Problem Qualifiers EVA MOSELEY MD May 05, 2018 01:36
[2018-05-05 01:38] VITALS: BP 137/102
[2018-05-05 02:05] LABS: BASOPHIL % 0.2 % (0.0-0.2); EOSINOPHIL % 0.1 % (0.0-5.0); LYMPHOCYTES # 1.7 10^3/uL (1.0-4.8); LYMPHOCYTES % 12.7 % (24.0-44.0); MEAN CELL HGB 25.8 pg (26-34); MEAN CELL HGB CONCENTRATION 30.4 g/dL (33-37); MEAN CORP VOLUME 84.8 fL (78-100); MONOCYTES # 1.6 10^3/uL (0.3-0.8); MONOCYTES % 12.2 % (5.0-12.0); NEUTROPHIL # 9.9 10^3/uL (1.8-7.7); RED CELL DISTRIBUTION WIDTH 17.2 % (11.5-14.5); WHITE BLOOD CELL 13.3 10^3/uL (4.5-11.0)
[2018-05-05 02:06] LABS: BILIRUBIN,URINE NEGATIVE (NEGATIVE); UROBILINOGEN,URINE NORMAL (NEGATIVE)
[2018-05-05 02:08] LABS: APPEARANCE,URINE CLEAR (CLEAR); UA COLOR YELLOW (YELLOW)
[2018-05-05 02:25] LABS: CALCIUM 10.1 mg/dL (8.4-10.5); CARBON DIOXIDE 25.1 mmol/L (20.0-32)
[2018-05-05 02:30] VITALS: BP 155/73
--- NOTE | 2018-05-05 02:37 | NUR ---
CT Patient done to CT
[2018-05-05] MEDS ORDERED: DECADRON ONE (03:03)
[2018-05-05] MEDS ORDERED: DUONEB 0.5 MG-3 MG/3 ML SOLN IH ONE (03:03)
[2018-05-05] MEDS ORDERED: DUONEB 0.5 MG-3 MG/3 ML SOLN IH STA (03:11)
[2018-05-05] MEDS ORDERED: DECADRON IH STA (03:11)
--- NOTE | 2018-05-05 03:23 | DIREP ---
PROCEDURE:CT ABDOMEN/PELVIS W/ CONTRAST COMPARISON:[facility], CT, CT ABD/PELVIS W/O, 07/09/2017, 01:31 AM. [facility], CT, CT ABD/PELVIS W/O, 03/27/2018, 12:48 PM. [facility], CT, CT ABD/PELVIS W/ CONTRAST, 05/28/2016, 09:24 AM. INDICATIONS:Abdominal pain TECHNIQUE:Axial images were created through the abdomen and pelvis with non-ionic intravenous contrast material. No oral contrast was administered. Sagittal and coronal reconstructions were performed from source images. FINDINGS: LUNG BASES:Normal. No visible pulmonary or pleural disease. Moderately large hiatal hernia LIVER:8 mm cyst lateral left hepatic lobe. BILIARY:Normal. No visible dilatation or calcification. PANCREAS:Normal. No lesion, fluid collection, ductal dilatation, or atrophy. SPLEEN:Normal. No enlargement or focal lesion. ADRENALS:Normal. No mass or enlargement. URINARY TRACT:Normal. No urinary calculi pre No focal lesions or hydronephrosis. AORTA/VASCULAR:There are aortic atherosclerotic calcifications present. No aneurysm. RETROPERITONEUM:Normal. No mass or adenopathy. BOWEL/MESENTERY:Prior appendectomy. Prior distal colectomy. No obstruction, free air, or free fluid. Possible mild transverse colonic wall thickening. Clinical correlation for colitis is recommended. ABDOMINAL WALL:Periumbilical hernia containing fat and portion of the transverse colon. PELVIC ORGANS:The uterus is surgically absent. No visible mass. BONES:Normal for age. No bony lesion or acute fracture. OTHER:Moderate size hiatal hernia. CONCLUSION: 1. Prior appendectomy and distal colectomy with bowel anastomotic sutures. 2. Periumbilical hernia containing fat and portion of the transverse colon. 3. Suspected mild transverse colonic wall thickening. Clinical correlation for colitis is recommended. 4. Small hepatic and left renal cysts. 5. Moderately large sliding-type hiatal hernia. Dictated by: Nestor Pope MD on 05/05/2018 at 03:13 AM
[2018-05-05 03:30] VITALS: BP 160/87
[2018-05-05] MEDS ORDERED: CIPRO PO STA (03:48)
[2018-05-05] MEDS ORDERED: FLAGYL PO STA (03:48)
[2018-05-05] MEDS ORDERED: FLAGYL ONE (03:50)
[2018-05-05] MEDS ORDERED: CIPRO ONE (03:51)
[2018-05-05] MEDS ORDERED: TORADOL ONE (03:54)
[2018-05-05] MEDS ORDERED: TORADOL IV STA (03:57)
--- NOTE | 2018-05-05 04:00 | NUR ---
IV IV Removed, tip intact. Placed cotton over iv site, secured with coban. Instructed patient to remove coban when she arrived home. Patient expressed understanding
--- NOTE | 2018-05-05 04:08 | PCM.EKG ---
[facility] Test Date: 2018-05-05 Test Time: 04:07:20 Pat Name: SUN ELLIS Department: Room: Gender: F Individualized Education Plan Aide: : 1945 Requested By: EVA MOSELEY Order Number: [id number] Reading MD: Eva MOSELEY Measurements Intervals [place] Rate: 72 P: 59 MS: 158 QRS: 30 QRSD: 94 T: 54 QT: 398 QTc: 435 Interpretive Statements Sinus rhythm with marked sinus arrhythmia Otherwise normal ECG Compared to ECG 08/19/2017 18:09:00 No significant changes Electronically Signed On 05-08-2018 23:47:59 POT RELINER by Eva MOSELEY Please click the below link to view image of tracing.
[2018-05-05 04:22] VITALS: BP 137/102
== END 2018-05-05 04:12 | disposition home or self-care (01) ==
LOC: ER 01:14
DX: K52.9 Noninfective gastroenteritis and colitis, unspecified (principal); K42.9 Umbilical hernia without obstruction or gangrene; J44.9 Chronic obstructive pulmonary disease, unspecified; Z90.710 Acquired absence of both cervix and uterus; Z88.0 Allergy status to penicillin; Z88.5 Allergy status to narcotic agent; Z79.899 Other long term (current) drug therapy
CPT/HCPCS: 36415; 74177; 80053; 81000; 83690; 85025; 85610; 85730; 93005; 94640; 96374; 96375; 99284; J1100; J1885; J2270; J2405; J7120; J7620; Q9965

== ENCOUNTER 2018-08-03 15:27 | Emergency (ER) | payer MEDICARE ==
[~2018-08-03] VITALS: Ht 157.5 cm; Wt 73.0 kg
[2018-08-03 15:36] VITALS: BP 142/73
--- NOTE | 2018-08-03 15:49 | ER.PDOC ---
General Chief Complaint: Dyspnea/Respdistress Stated Complaint: DYSPNEA Time seen by MD: 15:35 Source: patient Exam Limitations: no limitations History of Present Illness Initial Comments Pt called EMS for "my asthma". She began feeling SOB this morning took a breathing treatment at home. Was out in town, tried to get back to car and go home for another, but felt lkie she wasn't going to be able to do it so she called 911. Breathing tx en route helped her out. Now with mild dyspnea. Severity: moderate Activities at Onset: none Prior Episodes/Possible Cause: frequent episodes Modifying Factors: worse with activity; improves with albuterol nebulizer, improves with oxygen, improves with rest Associated Symptoms: wheezing Prior symptoms/Treatment: Similar symptoms previous (many times) Allergies: Coded Allergies: Penicillins (Verified Allergy, Severe, BLACKS OUT, 10/11/16) meperidine HCl (Verified Allergy, Severe, STOPS HEART, 10/11/16) codeine (Verified Allergy, Intermediate, RASH, 10/11/16) Home Meds Reported Medications Nifedipine (NIFEDIPINE ER) 30 Mg Tablet.er, 1 TAB PO DAILY, #90 TAB 3 Refills 05/03/18 Omeprazole (OMEPRAZOLE) 40 Mg Capsule.dr, 1 CAP PO DAILY, #90 CAP 3 Refills 05/03/18 Albuterol Sulfate (ALBUTEROL SULFATE) 2.5 Mg/0.5 Ml Vial.neb, 1 VIAL NEB Q6 PRN for SHORTNESS OF BREATH, #120 VIAL 5 Refills 09/20/16 Prednisone (PREDNISONE) 5 Mg Tablet, 5 MG PO DAILY PRN for COLD, TABLET X7 DAYS 07/15/16 Lorazepam (LORAZEPAM) 1 Mg Tablet, 1 TAB PO DAILY PRN for ANXIETY, #90 TAB 07/15/16 Hydrochlorothiazide (HYDROCHLOROTHIAZIDE) 25 Mg Tablet, 1 TAB PO DAILY, #30 TAB 5 Refills 07/15/16 Atorvastatin 20MG (LIPITOR 20MG) 20 Mg Tablet, 1 TAB PO HS, #90 TAB 1 Refill 07/15/16 Arformoterol Tartrate (BROVANA) 15 Mcg/2 Ml Vial.neb, 1 VIAL NEB BID, #320 MILLILITER 3 Refills 05/28/16 Ipratropium [place] (IPRATROPIUM BROMIDE) 0.2 Mg/1 Ml Solution, 0.2 MG IH BID 07/27/15 Albuterol Sulfate (PROAIR HFA) 8.5 Gm Hfa.aer.ad, 8.5 GM IH QID 07/27/15 Past Medical History Medical History: cardiac problems, congestive heart failure, COPD, high cholesterol, hypertension Surgical History: appendectomy, hysterectomy, knee LMP (females 10-50): hysterectomy Social History Smoking: non-smoker Alcohol Use: none Drug Use: none Review of Systems Constitutional: denies chills, denies diaphoresis, denies fever, denies malaise , denies weakness, denies other EENTM: no symptoms reported Respiratory: denies cough, denies orthopnea; shortness of breath; denies stridor; wheezing Cardiovascular: no symptoms reported; denies chest pain, denies edema, denies palpitations, denies syncope, denies other Gastrointestinal: no symptoms reported Musculoskeletal: no symptoms reported Skin: no symptoms reported Hematologic/Lymphatic: no symptoms reported Physical Exam HEENT: PERRL/EOMI, Normal ENT Inspection Neck: Non-Tender Respiratory: chest non-tender, no accessory muscle use, decreased breath sounds (slight b/l) Cardiovascular: Normal Peripheral Pulses, Tachycardia Extremities: Normal Range of Motion, Non-Tender Neurologic/Psychiatric: No Motor/Sensory Deficits, Alert Skin: Normal Color, Ecchymosis (scattered on b/l limbs) Lymphatic: No Adenopathy Results/Orders Results/Orders Orders - RENE BRITTON DO Cbc With Auto Diff (08/03/18 15:41) Comprehensive Metabolic Panel (08/03/18 15:41) Creatine Kinase (08/03/18 15:41) Probnp B-Type Feed Miller (08/03/18 15:41) Troponin I (08/03/18 15:41) Xr Chest 1v (08/03/18 15:41) PT (08/03/18 15:41) Partial Thromboplastin Time. (08/03/18 15:41) Ekg-Routine (08/03/18 15:41) Potassium Bicarbonate/Cit Ac (Effer-K 10 (08/03/18 17:30) Vital Signs Date Time Temp Pulse Resp B/P (MAP) Pulse Ox O2 Delivery O2 Flow Rate FiO2 08/03/18 15:36 98.4 125 24 142/73 (96) 95 Nasal Canula 2.00 98.4 08/03/18 15:29 98.4 80 24 95 Nasal Canula 98.4 08/03/18 15:29 98.4 125 24 98.4 Laboratory Tests Test 08/03/18 15:47 White Blood Count 13.6 10^3/uL (4.5-11.0) H Red Blood Count 3.80 10^6/uL (4.00-5.20) L Hemoglobin 9.6 g/dL (12.0-15.0) L Hematocrit 31.9 % (36.0-46.0) L Mean Corpuscular Volume 83.9 fL (78-100) Mean Corpuscular Hemoglobin 25.3 pg (26-34) L Mean Corpuscular Hemoglobin Concent 30.1 g/dL (33-37) L Red Cell Distribution Width 19.3 % (11.5-14.5) H Platelet Count 345 10^3/uL (150-400) Mean Platelet Volume 9.7 fL (7.8-11.0) Neutrophils (%) (Auto) 73.7 % (41.0-85.0) Lymphocytes (%) (Auto) 15.6 % (24.0-44.0) L Monocytes (%) (Auto) 8.1 % (5.0-12.0) Neutrophils # (Auto) 10.1 10^3/uL (1.8-7.7) H Lymphocytes # (Auto) 2.1 10^3/uL (1.0-4.8) Monocytes # (Auto) 1.1 10^3/uL (0.3-0.8) H Absolute Immature Granulocyte (auto 0.05 10^3 u/L (0-2) Eosinophils % 1.8 % (0.0-5.0) Basophils % 0.4 % (0.0-0.2) H Basophils # 0.1 10^3/uL (0.0-0.1) Eosinophil Count 0.2 10^3/uL (0.0-0.2) Prothrombin Time 9.7 SEC (9.8-11.9) L Prothrombin Time INR (Non-Therap) 1.0 PTT 20.2 SEC (24.67-30.72) Sodium Level 145 mmol/L (132-145) Potassium Level 2.8 mmol/L (3.6-5.2) L Chloride Level 103.0 mmol/L (96-109) Carbon Dioxide Level 28.6 mmol/L (20.0-32) Anion Gap 16.2 Blood Urea Nitrogen 15 mg/dL (7-18) Creatinine 0.79 mg/dL (0.59-1.40) Estimated GFR () 86.3 (>/=60) BUN/Creatinine Ratio 18.0 Glucose Level 138 mg/dL (70-110) H Calcium Level 10.0 mg/dL (8.4-10.5) Total Bilirubin 0.5 mg/dL (0.2-1.0) Aspartate Amino Transferase (AST) 15 U/L (0-35) Alanine Aminotransferase (ALT) 23 U/L (12-78) Alkaline Phosphatase 90 U/L (50-136) Total Creatine Kinase 70 U/L (26-192) Troponin I 0.02 ng/mL (0.00-0.05) Pro-B-Type Natriuretic Peptide 46 pg/mL (0-125) Total Protein 7.1 g/dL (6.4-8.2) Albumin 3.6 g/dL (3.4-5.0) Globulin 3.5 Percent Immature Gran (Cell Imm) 0.40 % (0.00-0.50) Progress Progress Pt re-checked and is doing better. HR is around 100, which she states is her normal. Pt's potassium level found to be low, and was low on last visit as well. May be from albuterol treatments shifting potassium temporarily, or may be chronic. Will give some replacement for the next few days, have her f/u with PMD on Monday. Pt with chronic anemia that appears consistent with other lab levels previously. Departure Time of Disposition: 17:19 Disposition: 01 HOME, SELF-CARE Impression: Primary Impression: COPD with exacerbation Additional Impressions: Anemia of chronic disease Hypokalemia Condition: Stable Referrals: [facility] [employer] SECURITIES TRADER (PCP) PRIMARY CARE PROVIDER Duration or Time Spent with Pa: 45 Problem Qualifiers RENE BRITTON DO Aug 03, 2018 15:49
[2018-08-03 15:54] LABS: BASOPHIL # 0.1 10^3/uL (0.0-0.1); BASOPHIL % 0.4 % (0.0-0.2); EOSINOPHIL # 0.2 10^3/uL (0.0-0.2); EOSINOPHIL % 1.8 % (0.0-5.0); HEMOGLOBIN 9.6 g/dL (12.0-15.0); LYMPHOCYTES # 2.1 10^3/uL (1.0-4.8); LYMPHOCYTES % 15.6 % (24.0-44.0); MEAN CELL HGB 25.3 pg (26-34); MEAN CELL HGB CONCENTRATION 30.1 g/dL (33-37); MEAN CORP VOLUME 83.9 fL (78-100); MEAN PLATELET VOLUME 9.7 fL (7.8-11.0); MONOCYTES # 1.1 10^3/uL (0.3-0.8); MONOCYTES % 8.1 % (5.0-12.0); NEUTROPHIL # 10.1 10^3/uL (1.8-7.7); NEUTROPHILS % 73.7 % (41.0-85.0); RED CELL DISTRIBUTION WIDTH 19.3 % (11.5-14.5); WHITE BLOOD CELL 13.6 10^3/uL (4.5-11.0)
--- NOTE | 2018-08-03 16:00 | DIREP ---
PROCEDURE:CHEST 1 VIEW COMPARISON:[facility], CR, XRAY CHEST SINGLE VW, 05/03/2018, 05:22 AM. INDICATIONS:dyspnea, hx copd and asthma FINDINGS: LUNGS/PLEURA:Hyperaeration consistent with COPD. Nodular density described on prior study not seen on today's study. Minimal scarring right lung base laterally. No new infiltrates. VASCULATURE:Normal. Unremarkable pulmonary vasculature. CARDIAC:Normal. No cardiac silhouette abnormality or cardiomegaly. MEDIASTINUM:Small hiatal hernia. Calcification in the aortic arch. BONES:Normal. No fracture or visible bony lesion. OTHER:Monitor leads are in place. CONCLUSION:COPD with no acute cardiopulmonary abnormalities. Dictated by: Davey Bell M.D. on 08/03/2018 at 03:56 PM
[2018-08-03 16:16] LABS: CARBON DIOXIDE 28.6 mmol/L (20.0-32)
--- NOTE | 2018-08-03 16:45 | PCM.EKG ---
[facility] Test Date: 2018-08-03 Test Time: 15:34:36 Pat Name: SUN ELLIS Department: Room: Gender: F Stopboard Assembler: DENNIS : 1945 Requested By: RENE BRITTON Order Number: [id number] Reading MD: Rene Britton Measurements Intervals [place] Rate: 124 P: 66 WI: 148 QRS: 54 QRSD: 80 T: 76 QT: 316 QTc: 453 Interpretive Statements Sinus tachycardia Otherwise normal ECG Compared to ECG 05/05/2018 04:07:20 Sinus rhythm no longer present Sinus arrhythmia no longer present Electronically Signed On 08-03-2018 23:54:55 CDT by Rene Britton Please click the below link to view image of tracing.
[2018-08-03] MEDS ORDERED: EFFER-K 10 MEQ TABLET EFF PO SCH (17:30)
[2018-08-03] MEDS ORDERED: KLOR-CON 10 PO ONE (17:35)
[2018-08-03 17:44] VITALS: BP_SYST 122; BP_SYST 142; BP_DIAS 73; BP_DIAS 77
[2018-08-03 18:09] LABS: ANISOCYTOSIS 2+ (NEGATIVE); ELLIPTOCYTES 1+ (NEGATIVE); EOSINOPHIL 1 % (1-4); LYMPHOCYTE 13 % (25-36); MONOCYTE 2 % (3-9); OVALOCYTES 1+ (NEGATIVE); SEGMENTED NEUTROPHILS 83 % (31-76)
== END 2018-08-03 17:45 | disposition home or self-care (01) ==
LOC: ER 15:27 → EDBD 15:27 → ER 17:45
DX: J44.1 Chronic obstructive pulmonary disease with (acute) exacerbation (principal); D63.8 Anemia in other chronic diseases classified elsewhere; E78.00 Pure hypercholesterolemia, unspecified; E87.6 Hypokalemia; I11.0 Hypertensive heart disease with heart failure; I50.9 Heart failure, unspecified; Z79.899 Other long term (current) drug therapy; Z88.0 Allergy status to penicillin; Z88.5 Allergy status to narcotic agent; Z90.710 Acquired absence of both cervix and uterus
CPT/HCPCS: 36415; 71045; 80053; 82550; 83880; 84484; 85025; 85610; 85730; 93005; 99284; J3480; J3490

== ENCOUNTER 2018-08-14 13:58 | Emergency (ER) | payer MEDICARE ==
[~2018-08-14] VITALS: Ht 160 cm; Wt 84.8 kg
[~2018-08-14 13:58] MED LIST changes: -LACTATED RINGERS 1,000 ML IV SCH; -LOVENOX SQ ONE
[2018-08-14] MEDS ORDERED: DECADRON IH ONE (13:59)
[2018-08-14] MEDS ORDERED: DUONEB 0.5 MG-3 MG/3 ML SOLN IH ONE (13:59)
[2018-08-14] MEDS ORDERED: DECADRON IH STA (14:02)
[2018-08-14] MEDS ORDERED: PREDNISONE PO STA (14:02)
[2018-08-14] MEDS ORDERED: DUONEB 0.5 MG-3 MG/3 ML SOLN IH STA (14:02)
--- NOTE | 2018-08-14 14:07 | ER.PDOC ---
General Chief Complaint: Requesting Medical Care Stated Complaint: SHORTNESS OF BREATHE Time seen by MD: 14:00 Source: patient Exam Limitations: no limitations History of Present Illness Timing/Duration: 1/2 hour Severity: mild Activities at Onset: activity/exertion, emotional stress Prior Episodes/Possible Cause: occasional episodes, chronic episodes Modifying Factors: improves with activity, improves with albuterol inhaler, improves with albuterol nebulizer, improves with coughing, improves with oxygen , improves with rest Associated Symptoms: cough, weakness, wheezing Prior symptoms/Treatment: Similar symptoms previous Allergies: Coded Allergies: Penicillins (Verified Allergy, Severe, BLACKS OUT, 08/14/18) meperidine HCl (Verified Allergy, Severe, STOPS HEART, 08/14/18) codeine (Verified Allergy, Intermediate, RASH, 08/14/18) Home Meds Reported Medications Budesonide/Formoterol Fumarate (SYMBICORT 160-4.5 MCG INHALER) 10.2 Gm Hfa.aer.ad, 2 PUFF IH BID, #10.6 GRAM 3 Refills 08/14/18 Nifedipine (NIFEDIPINE ER) 30 Mg Tablet.er, 1 TAB PO DAILY, #90 TAB 3 Refills 05/03/18 Omeprazole (OMEPRAZOLE) 40 Mg Capsule.dr, 1 CAP PO DAILY, #90 CAP 3 Refills 05/03/18 Albuterol Sulfate (ALBUTEROL SULFATE) 2.5 Mg/0.5 Ml Vial.neb, 1 VIAL NEB Q6 PRN for SHORTNESS OF BREATH, #120 VIAL 5 Refills 09/20/16 Prednisone (PREDNISONE) 5 Mg Tablet, 2.5 MG PO DAILY PRN for CONGESTION, TABLET X7 DAYS 07/15/16 Lorazepam (LORAZEPAM) 1 Mg Tablet, 1 TAB PO DAILY PRN for ANXIETY, #90 TAB 07/15/16 Hydrochlorothiazide (HYDROCHLOROTHIAZIDE) 25 Mg Tablet, 0.5 TAB PO DAILY, #30 TAB 5 Refills 07/15/16 Atorvastatin 20MG (LIPITOR 20MG) 20 Mg Tablet, 1 TAB PO HS, #90 TAB 1 Refill 07/15/16 Arformoterol Tartrate (BROVANA) 15 Mcg/2 Ml Vial.neb, 1 VIAL NEB BID, #320 MILLILITER 3 Refills 05/28/16 Ipratropium [place] (IPRATROPIUM BROMIDE) 0.2 Mg/1 Ml Solution, 0.2 MG IH BID 07/27/15 Albuterol Sulfate (PROAIR HFA) 8.5 Gm Hfa.aer.ad, 8.5 GM IH QID 07/27/15 Past Medical History Medical History: COPD Surgical History: appendectomy, hysterectomy, knee LMP (females 10-50): postmenopause Social History Drug Use: none Reviewed Nursing Reviewed: Vital Signs, Abn. Noted Review of Systems All Other Systems: Reviewed and Negative Physical Exam General Appearance: No Apparent Distress, WD/WN HEENT: PERRL/EOMI, Normal ENT Inspection, TMs Normal, Pharynx Normal Neck: Non-Tender, Full Range of Motion, Supple, Normal Inspection Respiratory: rales, rhonchi Cardiovascular: Normal Peripheral Pulses, Regular Rate, Rhythm, No Edema, No Gallop, No JVD, No Murmur Gastrointestinal: Normal Bowel Sounds, No Organomegaly, No Pulsatile Mass, Non Tender, Soft Extremities: Normal Range of Motion, Non-Tender, Normal Inspection, No Pedal Edema, No Calf Tenderness, Normal Capillary Refill Neurologic/Psychiatric: 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 (08/14/18 14:00) Helicobacter Pylori (08/14/18 14:00) D-Dimer (08/14/18 14:00) Ekg-Routine (08/14/18 14:00) Xr Chest 2v (08/14/18 14:00) Ipratropium/Albuterol Sulfate (Duoneb 0. (08/14/18 14:02) Dexamethasone Sod Phosphate (Decadron) (08/14/18 14:02) Prednisone (Prednisone) (08/14/18 14:02) Vital Signs Date Time Temp Pulse Resp B/P (MAP) Pulse Ox O2 Delivery O2 Flow Rate FiO2 08/14/18 14:13 98.4 141 22 156/80 (105) 98 Nasal Canula 3.00 98.4 08/14/18 14:10 98.4 141 22 98 Nasal Canula 98.4 08/14/18 14:10 98.4 141 22 98.4 08/14/18 13:50 147 26 97 08/14/18 13:50 145 24 95 08/03/18 17:44 125 Administered Medications Medications (Trade) Dose Ordered Sig/Mary Route PRN Reason Start Time Stop Time Status Last Admin Dose Admin Albuterol/ Ipratropium (Duoneb 0.5 Mg-3 Mg/3 ml Soln) 3 ml STAT STAT IH 08/14/18 14:02 08/14/18 14:03 UNV 08/14/18 14:14 3 ML Dexamethasone Sodium Phosphate (Decadron) 4 mg STAT STAT IH 08/14/18 14:02 08/14/18 14:03 UNV 08/14/18 14:13 4 MG Prednisone (Prednisone) 40 mg STAT STAT PO 08/14/18 14:02 08/14/18 14:03 UNV 08/14/18 14:29 40 MG Laboratory Tests Test 08/14/18 14:10 White Blood Count 14.3 10^3/uL (4.5-11.0) H Red Blood Count 3.93 10^6/uL (4.00-5.20) L Hemoglobin 9.9 g/dL (12.0-15.0) L Hematocrit 32.8 % (36.0-46.0) L Mean Corpuscular Volume 83.5 fL (78-100) Mean Corpuscular Hemoglobin 25.2 pg (26-34) L Mean Corpuscular Hemoglobin Concent 30.2 g/dL (33-37) L Red Cell Distribution Width 18.8 % (11.5-14.5) H Platelet Count 373 10^3/uL (150-400) Mean Platelet Volume 9.8 fL (7.8-11.0) Neutrophils (%) (Auto) 82.2 % (41.0-85.0) Lymphocytes (%) (Auto) 11.9 % (24.0-44.0) L Monocytes (%) (Auto) 5.1 % (5.0-12.0) Neutrophils # (Auto) 11.8 10^3/uL (1.8-7.7) H Lymphocytes # (Auto) 1.7 10^3/uL (1.0-4.8) Monocytes # (Auto) 0.7 10^3/uL (0.3-0.8) Absolute Immature Granulocyte (auto 0.07 10^3 u/L (0-2) Eosinophils % 0.1 % (0.0-5.0) Basophils % 0.2 % (0.0-0.2) Basophils # 0.0 10^3/uL (0.0-0.1) Eosinophil Count 0.0 10^3/uL (0.0-0.2) Prothrombin Time 9.8 SEC (9.8-11.9) Prothrombin Time INR (Non-Therap) 1.0 PTT 19.8 SEC (24.67-30.72) D-Dimer 0.32 mg/L (0.19-0.49) Sodium Level 142 mmol/L (132-145) Potassium Level 3.2 mmol/L (3.6-5.2) L Chloride Level 103.0 mmol/L (96-109) Carbon Dioxide Level 26.4 mmol/L (20.0-32) Anion Gap 15.8 Blood Urea Nitrogen 20 mg/dL (7-18) H Creatinine 0.81 mg/dL (0.59-1.40) Estimated GFR () 83.9 (>/=60) BUN/Creatinine Ratio 24.0 Glucose Level 174 mg/dL (70-110) H Calcium Level 9.7 mg/dL (8.4-10.5) Total Bilirubin 0.4 mg/dL (0.2-1.0) Aspartate Amino Transferase (AST) 16 U/L (0-35) Alanine Aminotransferase (ALT) 26 U/L (12-78) Alkaline Phosphatase 79 U/L (50-136) Total Creatine Kinase 66 U/L (26-192) Troponin I < 0.02 ng/mL (0.00-0.05) Pro-B-Type Natriuretic Peptide 47 pg/mL (0-125) Total Protein 7.7 g/dL (6.4-8.2) Albumin 4.0 g/dL (3.4-5.0) Globulin 3.7 Percent Immature Gran (Cell Imm) 0.50 % (0.00-0.50) Helicobacter pylori Screen NEGATIVE (NEGATIVE) EKG/XRAY/CT/US EKG: NSR, no ST T wave changes XRAY: chest Course Sepsis Screening Results: Posi: POSITIVE SEPSIS RISK Duration or Total Time Spent w: 45 Vitals & review Data Vital Sign - Last 24 Hours 08/03/18 08/14/18 08/14/18 08/14/18 17:44 13:50 13:50 14:10 Temp 98.4 98.4 Pulse 125 145 147 141 Resp 24 26 22 Pulse Ox 95 97 08/14/18 08/14/18 14:10 14:13 Temp 98.4 98.4 98.4 98.4 Pulse 141 141 Resp 22 22 B/P (MAP) 156/80 (105) Pulse Ox 98 98 O2 Delivery Nasal Canula Nasal Canula O2 Flow Rate 3.00 Laboratory Tests Test 08/14/18 14:10 White Blood Count 14.3 10^3/uL Red Blood Count 3.93 10^6/uL Hemoglobin 9.9 g/dL Hematocrit 32.8 % Mean Corpuscular Volume 83.5 fL Mean Corpuscular Hemoglobin 25.2 pg Mean Corpuscular Hemoglobin Concent 30.2 g/dL Red Cell Distribution Width 18.8 % Platelet Count 373 10^3/uL Mean Platelet Volume 9.8 fL Neutrophils (%) (Auto) 82.2 % Lymphocytes (%) (Auto) 11.9 % Monocytes (%) (Auto) 5.1 % Neutrophils # (Auto) 11.8 10^3/uL Lymphocytes # (Auto) 1.7 10^3/uL Monocytes # (Auto) 0.7 10^3/uL Absolute Immature Granulocyte (auto 0.07 10^3 u/L Eosinophils % 0.1 % Basophils % 0.2 % Basophils # 0.0 10^3/uL Eosinophil Count 0.0 10^3/uL Prothrombin Time 9.8 SEC Prothrombin Time INR (Non-Therap) 1.0 Activated Partial Thromboplast Time 19.8 SEC D-Dimer 0.32 mg/L Sodium Level 142 mmol/L Potassium Level 3.2 mmol/L Chloride Level 103.0 mmol/L Carbon Dioxide Level 26.4 mmol/L Anion Gap 15.8 Blood Urea Nitrogen 20 mg/dL Creatinine 0.81 mg/dL Estimated GFR () 83.9 BUN/Creatinine Ratio 24.0 Glucose Level 174 mg/dL Calcium Level 9.7 mg/dL Total Bilirubin 0.4 mg/dL Aspartate Amino Transf (AST/SGOT) 16 U/L Alanine Aminotransferase (ALT/SGPT) 26 U/L Alkaline Phosphatase 79 U/L Total Creatine Kinase 66 U/L Troponin I < 0.02 ng/mL Pro-B-Type Natriuretic Peptide 47 pg/mL Total Protein 7.7 g/dL Albumin 4.0 g/dL Globulin 3.7 Percent Immature Gran (Cell Imm) 0.50 % Helicobacter pylori Screen NEGATIVE Current Medications Medications (Trade) Dose Ordered Sig/Mary PRN Reason Start Time Stop Time Status Last Admin Albuterol/ Ipratropium (Duoneb 0.5 Mg-3 Mg/3 ml Soln) 3 ml STAT STAT 08/14/18 14:02 08/14/18 14:03 UNV 08/14/18 14:14 Dexamethasone Sodium Phosphate (Decadron) 4 mg STAT STAT 08/14/18 14:02 08/14/18 14:03 UNV 08/14/18 14:13 Prednisone (Prednisone) 40 mg STAT STAT 08/14/18 14:02 08/14/18 14:03 UNV 08/14/18 14:29 Sepsis Infection Criteria Pres: None Departure Time of Disposition: 15:00 Disposition: 01 HOME, SELF-CARE Impression: Primary Impression: COPD (chronic obstructive pulmonary disease) Condition: Improved Referrals: KALPESH BARRIOS 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
[2018-08-14 14:13] VITALS: BP 156/80
[2018-08-14 14:16] LABS: BASOPHIL % 0.2 % (0.0-0.2); EOSINOPHIL % 0.1 % (0.0-5.0); HEMOGLOBIN 9.9 g/dL (12.0-15.0); LYMPHOCYTES # 1.7 10^3/uL (1.0-4.8); LYMPHOCYTES % 11.9 % (24.0-44.0); MEAN CELL HGB 25.2 pg (26-34); MEAN CELL HGB CONCENTRATION 30.2 g/dL (33-37); MEAN CORP VOLUME 83.5 fL (78-100); MEAN PLATELET VOLUME 9.8 fL (7.8-11.0); MONOCYTES # 0.7 10^3/uL (0.3-0.8); MONOCYTES % 5.1 % (5.0-12.0); NEUTROPHIL # 11.8 10^3/uL (1.8-7.7); NEUTROPHILS % 82.2 % (41.0-85.0); RED CELL DISTRIBUTION WIDTH 18.8 % (11.5-14.5); WHITE BLOOD CELL 14.3 10^3/uL (4.5-11.0)
[2018-08-14] MEDS ORDERED: PREDNISONE ONE (14:26)
--- NOTE | 2018-08-14 14:34 | DIREP ---
PROCEDURE:CHEST 2 VIEWS COMPARISON:[facility], CR, XRAY CHEST 2 VWS, 05/28/2016, 08:04 AM. [facility], CR, XRAY CHEST 2 VWS, 04/26/2018, 10:40 AM. [facility], CT, CT CHEST W/O, 05/03/2018, 06:59 AM. [facility], CR, XRAY CHEST SINGLE VW, 08/03/2018, 03:42 PM. INDICATIONS:COPD , DYSPNEA, COUGH FINDINGS: LUNGS/PLEURA:Minimal regions of basilar and peripheral scar. The lungs appear emphysematous. No acute superimposed process is identified VASCULATURE:Normal. Unremarkable pulmonary vasculature. CARDIAC:Normal. No cardiac silhouette abnormality or cardiomegaly. MEDIASTINUM:Moderate stable hiatal hernia BONES:Normal. No fracture or visible bony lesion. OTHER:Negative. CONCLUSION:No acute process is suspected. COPD, minimal basilar scarring. No significant interval change Dictated by: Ankur Levin MD on 08/14/2018 at 02:31 PM
[2018-08-14 14:37] LABS: ALANINE AMINOTRANSFERASE(ML) 26 U/L (12-78); ALKALINE PHOSPHATASE 79 U/L (50-136); ASPARTATE AMINO TRANSFERASE 16 U/L (0-35); CALCIUM 9.7 mg/dL (8.4-10.5); CARBON DIOXIDE 26.4 mmol/L (20.0-32); GLUCOSE 174 mg/dL (70-110)
[2018-08-14 15:59] VITALS: BP 156/80
== END 2018-08-14 15:40 | disposition home or self-care (01) ==
LOC: ER 13:58
DX: J44.9 Chronic obstructive pulmonary disease, unspecified (principal); R79.1 Abnormal coagulation profile; Z79.899 Other long term (current) drug therapy; Z88.0 Allergy status to penicillin; Z88.5 Allergy status to narcotic agent; Z90.710 Acquired absence of both cervix and uterus
CPT/HCPCS: 36415; 71046; 80053; 82550; 83880; 84484; 85025; 85379; 85610; 85730; 86677; 94640; 99285; J1100; J7512; J7620

== ENCOUNTER → 2018-08-14 | Outpatient (CLI) | payer MEDICARE ==
[~2018-08-14] VITALS: Ht 170.2 cm; Wt 72.1 kg
[~2018-08-14] MED LIST changes: +BUDE10.2 IH; +LACTATED RINGERS 1,000 ML IV SCH; +LOVENOX SQ ONE
[2018-08-14 10:48] VITALS: BP 150/85
[2018-08-14 11:11] LABS: BASOPHIL % 0.2 % (0.0-0.2); EOSINOPHIL % 0.2 % (0.0-5.0); HEMOGLOBIN 9.6 g/dL (12.0-15.0); LYMPHOCYTES # 0.9 10^3/uL (1.0-4.8); LYMPHOCYTES % 6.6 % (24.0-44.0); MEAN CELL HGB 25.2 pg (26-34); MEAN CELL HGB CONCENTRATION 30.3 g/dL (33-37); MEAN CORP VOLUME 83.2 fL (78-100); MONOCYTES # 0.8 10^3/uL (0.3-0.8); MONOCYTES % 5.9 % (5.0-12.0); NEUTROPHIL # 11.8 10^3/uL (1.8-7.7); NEUTROPHILS % 86.6 % (41.0-85.0); RED CELL DISTRIBUTION WIDTH 18.7 % (11.5-14.5); WHITE BLOOD CELL 13.6 10^3/uL (4.5-11.0)
[2018-08-14 11:39] LABS: CALCIUM 9.5 mg/dL (8.4-10.5); CARBON DIOXIDE 27.5 mmol/L (20.0-32)
[2018-08-14 14:08] LABS: DIFFERENTIAL COMMENT NORMAL; LYMPHOCYTE 9 % (25-36); MONOCYTE 5 % (3-9); SEGMENTED NEUTROPHILS 86 % (31-76)
== END | disposition home or self-care (01) | DRG 395 ==
LOC: LAB 08:00 → EDSTATUS 08-16 10:05
PROVIDERS: ATTEND Surgery
DX: K43.9 Ventral hernia without obstruction or gangrene (principal); Z53.8 Procedure and treatment not carried out for other reasons; J44.9 Chronic obstructive pulmonary disease, unspecified; I10 Essential (primary) hypertension; I25.10 Atherosclerotic heart disease of native coronary artery without angina pectoris; Z90.49 Acquired absence of other specified parts of digestive tract; Z98.890 Other specified postprocedural states; Z88.5 Allergy status to narcotic agent; Z88.8 Allergy status to other drugs, medicaments and biological substances; Z79.899 Other long term (current) drug therapy; Z90.710 Acquired absence of both cervix and uterus; Z87.891 Personal history of nicotine dependence; Z98.51 Tubal ligation status
CPT/HCPCS: 36415; 80053; 85025; 85610; 85730

== ENCOUNTER 2018-10-02 06:05 | Inpatient (IN) | payer MEDICARE ==
[2018-09-27 14:33] LABS: BASOPHIL % 0.4 % (0.0-0.2); EOSINOPHIL % 0.5 % (0.0-5.0); HEMOGLOBIN 11.5 g/dL (12.0-15.0); LYMPHOCYTES # 0.7 10^3/uL (1.0-4.8); LYMPHOCYTES % 8.8 % (24.0-44.0); MEAN CELL HGB 26.6 pg (26-34); MEAN CELL HGB CONCENTRATION 30.7 g/dL (33-37); MEAN CORP VOLUME 86.6 fL (78-100); MEAN PLATELET VOLUME 9.8 fL (7.8-11.0); MONOCYTES # 0.5 10^3/uL (0.3-0.8); MONOCYTES % 5.7 % (5.0-12.0); NEUTROPHIL # 6.6 10^3/uL (1.8-7.7); NEUTROPHILS % 84.1 % (41.0-85.0); PLATELET COUNT 358 10^3/uL (150-400); RED CELL DISTRIBUTION WIDTH 24.3 % (11.5-14.5); WHITE BLOOD CELL 7.8 10^3/uL (4.5-11.0)
[2018-09-27 14:49] LABS: CALCIUM 10.6 mg/dL (8.4-10.5); CARBON DIOXIDE 28.1 mmol/L (20.0-32)
[2018-09-27 16:06] VITALS: BP 152/99
[2018-10-02] VITALS (10 sets, daily range): BP systolic 106–142; BP diastolic 66–85
[~2018-10-02] VITALS: Ht 170.2 cm; Wt 73.9 kg
[~2018-10-02 06:05] MED LIST changes: +VENTOLIN IH ONE
[2018-10-02] MEDS ORDERED: SODIUM CHLORIDE IR ONE (07:24)
[2018-10-02] MEDS ORDERED: ISOTON GENTAMICIN 80 MG/50 ML 50 ML IV ONE (07:24)
[2018-10-02] MEDS ORDERED: SENSORCAINE-MPF 0.25% VIAL ONE (07:29)
[2018-10-02] MEDS ORDERED: EXPAREL 266 MG/20 ML VIAL IJ ONE (07:30)
[2018-10-02] MEDS ORDERED: DECADRON ONE (07:39)
[2018-10-02] MEDS ORDERED: NEOSTIGMINE ONE (07:39)
[2018-10-02] MEDS ORDERED: LIDOCAINE 2% VIAL ONE (07:39)
[2018-10-02] MEDS ORDERED: ZOFRAN ONE (07:40)
[2018-10-02] MEDS ORDERED: SUBLIMAZE ONE (07:40)
[2018-10-02] MEDS ORDERED: DILAUDID ONE (07:40)
[2018-10-02] MEDS ORDERED: ZEMURON IV ONE (07:40)
[2018-10-02] MEDS ORDERED: QUELICIN ONE (07:40)
[2018-10-02] MEDS ORDERED: NS 100ML 100 ML IV ONE (07:41)
[2018-10-02] MEDS ORDERED: DIPRIVAN IV ONE (07:41)
[2018-10-02] MEDS ORDERED: WATER ONE (07:43)
[2018-10-02] MEDS ORDERED: CELEBREX PO ONE (08:00)
[2018-10-02] MEDS ORDERED: LACTATED RINGERS 1,000 ML IV SCH ×2 (08:00→12:30)
[2018-10-02] MEDS ORDERED: TYLENOL PO ONE (08:00)
[2018-10-02] MEDS ORDERED: LOVENOX SQ ONE (08:00)
[2018-10-02] MEDS ORDERED: METHYLENE BLUE ONE (10:04)
[2018-10-02] MEDS ORDERED: DUONEB 0.5 MG-3 MG/3 ML SOLN IH ONE (12:02)
[2018-10-02] MEDS: D5W-1/2 NS/KCL 20MEQ 1,000 ML IV SCH ×2 (12:14→16:37)
[2018-10-02] MEDS ORDERED: DUONEB 0.5 MG-3 MG/3 ML SOLN IH STA (12:18)
[2018-10-02] MEDS ORDERED: MORPHINE SULFATE IV PRN ×2 (12:30)
[2018-10-02] MEDS ORDERED: NORCO 5MG PO PRN (12:30)
[2018-10-02] MEDS ORDERED: PHENERGAN 12.5 MG in HNS 50ML 50 ML IV PRN (12:30)
[2018-10-02] MEDS ORDERED: DILAUDID IV PRN (12:30)
[2018-10-02] MEDS ORDERED: SUBLIMAZE IV PRN (12:30)
[2018-10-02] MEDS ORDERED: ZOFRAN IV PRN ×3 (12:30→16:30)
[2018-10-02] MEDS ORDERED: MEFOXIN 1 GM in NS 100ML 100 ML IV SCH (15:00)
--- NOTE | 2018-10-02 15:01 | OPH ---
DATE OF SURGERY: PREOPERATIVE DIAGNOSES: Ventral hernia as well as incisional hernia. POSTOPERATIVE DIAGNOSES: Incarcerated ventral hernia, infraumbilical incisional hernia. SURGEON: Esdras Leary DO MANUFACTURING TECH: OR staff. ANESTHESIA: General by Sondra Olson CRNA plus block provided on the field. PROCEDURES PERFORMED: Open hernia repair. SPECIMENS: Hernia sac to path. ESTIMATED BLOOD LOSS: 29 mL. COUNTS: At the completion of the case, counts were correct per OR staff. DESCRIPTION OF PROCEDURE: The patient is a 73-year-old female known from previous evaluation. Prior to procedure, informed consent was obtained. At the time of procedure, she was taken to the operative suite and placed in supine position. After time-out was completed, general anesthesia was obtained. She has a block provided by the department of anesthesia and subsequently her abdomen was prepped and draped in normal fashion. Supraumbilical incision was created. Electrocautery was used to control bleeding dissected down to the level of the hernia sac which was dissected from surrounding tissues was entered and there was noted to be some incarcerated contents as well as some adhesions of the omentum and visceral structures to the sac, which were divided using electrocautery after contents were completely reduced. There was noted to be some infraumbilical adhesions. The midline fascia was extended superiorly and inferiorly. Adhesions were identified in the infraumbilical midline and taken down using a combination of blunt dissection and electrocautery. There appeared to be reoccurrence infraumbilically, where there was some slight in the existing mesh. There is also a sac that appears to be a seroma that is deep to the fascia that is drained. The possibility of there being a bladder injury, the patient is given IV blue dye. The fascia was cleared anteriorly in all directions. The previously excised hernia sac is passed off the field. Infraumbilically, the adhesions inside the abdomen are released. There was noted to be some further adhesions in the mid and superior abdomen. However, these do not appear to be involving the patient's functionality and they are allowed to remain. The abdominal cavity was copiously irrigated and inspected. It was noted in the supraumbilical midline that the falciform is involved with the fascia and the sac. It was divided using electrocautery to allow adequate mobilization and the fascia was cleared to allow exposure. After this was completed, the fascia was repaired in the midline with a running looped PDS suture from the superior apex to the inferior portion of the incision. Infraumbilically, there were two interrupted sutures placed of PDS to reduce the space from the seroma and also to reapproximate the previous repair with the mesh. After the fascia was completely repaired, the wound was copiously irrigated. A piece of Surgimesh was brought on the field and cut to fit. It was repaired in the superior portion of the wound with a running PDS on both sides. In a small portion infraumbilically, a second piece was cut and secured in the midline with Vicryl and laterally on both sides with interrupted PDS sutures. After the repair was completed, the wound bed was irrigated. A drain was passed out through a stab incision and secured deep and secured the point of exit with a nylon suture and closure was pursued. 0 Vicryl was used to reapproximate the umbilical stalk. The deep tissues were loosely approximated with 0 Vicryl. Skin was closed with 3-0 Prolene. Dressings were applied. Drapes were removed. The patient tolerated this procedure well. There were no acute complications noted. Esdras Leary DO DR: MEMO/leisa JOB# [id number] CC: Willian Mcneal NP MTDD
[2018-10-02] MEDS: GENASYME PO PRN ×2 (16:37→21:22)
--- NOTE | 2018-10-02 16:41 | PCM.HP ---
History of Present Illness Reason for Visit: S/P hernia repair History of Present Illness Patient is a 73 F PMH of HTN, HLD, COPD who presents following elective ventral hernia repair. Patient had ventral hernia repair earlier today with Surgery. Patient is comfortable. She denies complaints. Labs reviewed. No respiratory distress, no fevers. Patient is being kept overnight for monitoring. Patient is alert and oriented. Labs reviewed. Medicine team consulted while patient in hospital. No acute issues. Past Medical History Cardiac: HTN, Hyperlipidemia Pulmonary: COPD Past Surgical History: Appendectomy, Hernia Repair, Other (Hysterectomy, left wrist) Past Social History Smoke: Quit Alcohol: none Drugs: None Lives: Alone Travel Hx EBOLA RISK:Travel to/contact w: No Is pt experiencing any Ebola s: No Review of Systems Constitutional: No: Fever, Chills Eyes: No: Conjunctivae inflammation, Eyelid inflammation ENT: No: Nose discharge, Nose congestion Respiratory: No: Cough, Shortness of breath, SOB with excertion, Wheezing Cardiovascular: No: Chest Pain, Palpitations, Edema Gastrointestinal: No: Nausea, Vomiting, Abdominal Pain Genitourinary: No Hematuria, No Retention Musculoskeletal: No: neck pain, back pain Skin: No: Rash, Lesions, Jaundice, Bruising Neurological: No: Weakness, Numbness, Incoordination, Change in speech, Confusion, Seizures Allergies: Coded Allergies: Penicillins (Verified Allergy, Severe, BLACKS OUT, 09/27/18) meperidine HCl (Verified Allergy, Severe, STOPS HEART, 09/27/18) codeine (Verified Allergy, Intermediate, RASH, 09/27/18) Scheduled Albuterol Sulfate (Albuterol Sulfate), 1 VIAL NEB BID, (Reported) Arformoterol Tartrate ([place]), 1 VIAL NEB BID, (Reported) Atorvastatin 20MG (Lipitor 20MG), 1 TAB PO HS, (Reported) Hydrochlorothiazide (Hydrochlorothiazide), 0.5 TAB PO DAILY, (Reported) Ipratropium [place] (Ipratropium [place]), 0.2 MG IH BID, (Reported) Nifedipine (Nifedipine Er), 1 TAB PO DAILY, (Reported) Omeprazole (Omeprazole), 1 CAP PO DAILY, (Reported) Prednisone (Prednisone), 5 MG PO DAILY, (Reported) Scheduled PRN Albuterol Sulfate (Proair Hfa), 8.5 GM IH QID PRN for SHORTNESS OF BREATH, (Reported) Budesonide/Formoterol Fumarate (Symbicort 160-4.5 Mcg Inhaler), 2 PUFF IH BID PRN for SHORTNESS OF BREATH, (Reported) Lorazepam (Lorazepam), 1 TAB PO DAILY PRN for ANXIETY, (Reported) VTE VTE Risk Total Score: 4 VTE Risk Score VTE Risk: Score 0-1 = Low Risk (Aggressive mobilization; early ambulation; no VTE prophylaxis required) Score 2: Moderate Risk (Intermittent/Pneumatic Compression Device OR Lovenox/Heparin/Coumadin) Score 3-4: High Risk (Intermittent/Pneumatic Compression Device AND Lovenox/Heparin/Coumadin) Score > or =5: Highest Risk (Intermittent/Pneumatic Compression Device AND Lovenox/Heparin/Coumadin) VTE VTE Present on Admission: No Currently receiving anticoagul: No VTE Risk Total Score: 4 Exam Vital Signs Vital Signs Date Time Temp Pulse Resp B/P (MAP) Pulse Ox O2 Delivery O2 Flow Rate FiO2 10/02/18 16:22 97.7 98 18 116/74 (88) 95 Nasal Canula 2.00 97.7 10/02/18 15:30 28 General Appearance: Alert, Oriented X3, Cooperative, No acute distress HEENT: Atraumatic, PERRLA, EOMI, Mucous membr. moist/pink Respiratory: Clear to auscultation, Normal air movement Cardiovascular: Regular rate, Normal S1, Normal S2, No murmurs Abdominal: Normal bowel sounds, Soft, No tenderness Extremities: No edema, Normal pulses, No tenderness/swelling Skin: No rash, No breakdown, No lesions Neuro: Normal speech, Strength at 5/5 X4 ext, Normal tone, Sensation intact, Cranial nerves 3-12 NL Psych/Mental Status: Mental status NL, Mood NL Assessment/Plan Assessment/Plan Assessment/Plan Patient is a 73 F PMH of HTN, HLD, COPD who presents following elective ventral hernia repair. Patient History: No known health problems G8 BROTHER 19 CHILD, , Age:12 19 CHILD, , Age:21 19 CHILD 19 CHILD 19 CHILD Unknown 32 MOTHER (PT ADOPTED) 33 FATHER (PT ADOPTED) No Family History of: Alzheimer's disease Asthma Cerebrovascular disorder Chronic obstructive pulmonary disease Congestive heart failure Diabetes insipidus Diabetes mellitus Hypertension Parkinson's disease Plan 1. Incarcerated Ventral Hernia: s/p repair, surgery managing. Cont pain control, CLD. 2. HLD: cont Statin 3. COPD: cont O2 support, nebs PRN. Daily Prednisone. 4. HTN: cont home meds 5. PPx: Lovesherylx, PPI CATINA MARTEL MD Oct 02, 2018 16:41
--- NOTE | 2018-10-02 18:27 | NUR ---
Report Assumed care of patient when she arrived from [facility], post op , 1330. Transported on her bed. Report received from Seble SQUIRES at the bedside. Vital signs per post op protocol. Patient awake, drowsy. No complaint of pain. IVF LR. Abdomen dressing in place drainage distal circled. DENNIS DRain left lower abdomen. Tolerating clear liquids. Patient has up to pee twice, green urine secondary to medication received. Dr. Whitfield visited with patient, fluids changed to D5 1/2 NS c 20 KCL. Patient up to ambulate at 1800, 100ft.
[2018-10-02] MEDS: TYLENOL PO PRN (18:40)
--- NOTE | 2018-10-02 19:28 | NUR ---
REPORT RECEIVED REPORT FROM OFFGOING SHIFT
[2018-10-02] MEDS: CEFOXITIN 1 GM IV SCH (19:48)
[2018-10-02] MEDS: LIPITOR PO SCH (20:25)
[2018-10-02] MEDS: PULMICORT IH SCH (21:01)
[2018-10-03] MEDS: CEFOXITIN 1 GM IV SCH ×2 (00:11→05:13)
--- NOTE | 2018-10-03 00:16 | NUR ---
ambulate pt ambulated the hallway several times with her nurse. Pt is doing good in her ambulation.
[2018-10-03 00:17] VITALS: BP 127/79
[2018-10-03 03:44] VITALS: BP 124/74
[2018-10-03] MEDS: D5W-1/2 NS/KCL 20MEQ 1,000 ML IV SCH ×3 (03:55→20:48)
[2018-10-03] MEDS: TYLENOL PO PRN ×3 (04:08→23:54)
[2018-10-03] MEDS: DUONEB 0.5 MG-3 MG/3 ML SOLN IH PRN ×4 (04:19→20:31)
--- NOTE | 2018-10-03 05:03 | NUR ---
morning walk pt ambulated this time on the hallway. She desats to the between 87 to 89 the entire time even while she was hooked to the portable O2 running at 2L via nasal cannula.
[2018-10-03 05:23] LABS: BASOPHIL % 0.1 % (0.0-0.2); EOSINOPHIL % 0.2 % (0.0-5.0); HEMOGLOBIN 10.6 g/dL (12.0-15.0); LYMPHOCYTES # 1.2 10^3/uL (1.0-4.8); LYMPHOCYTES % 10.2 % (24.0-44.0); MEAN CELL HGB 27.1 pg (26-34); MEAN CELL HGB CONCENTRATION 30.6 g/dL (33-37); MEAN CORP VOLUME 88.5 fL (78-100); MEAN PLATELET VOLUME 10.7 fL (7.8-11.0); MONOCYTES # 1.2 10^3/uL (0.3-0.8); NEUTROPHIL # 8.8 10^3/uL (1.8-7.7); PLATELET COUNT 356 10^3/uL (150-400); RED CELL DISTRIBUTION WIDTH 23.7 % (11.5-14.5); WHITE BLOOD CELL 11.3 10^3/uL (4.5-11.0)
[2018-10-03 05:36] LABS: CALCIUM 10.1 mg/dL (8.4-10.5)
--- NOTE | 2018-10-03 06:43 | NUR ---
report report givent o o/c shift
--- NOTE | 2018-10-03 08:01 | PRM.PN ---
Subjective Subjective Date: Oct 03, 2018 Time: 08:00 Subjective Patient having mild pain. DENNIS drain remains in place. Labs reviewed. I discussed case with surgery. No acute issues. Patient History: No known health problems G8 BROTHER 19 CHILD, , Age:12 19 CHILD, , Age:21 19 CHILD 19 CHILD 19 CHILD Unknown 32 MOTHER (PT ADOPTED) 33 FATHER (PT ADOPTED) No Family History of: Alzheimer's disease Asthma Cerebrovascular disorder Chronic obstructive pulmonary disease Congestive heart failure Diabetes insipidus Diabetes mellitus Hypertension Parkinson's disease VTE VTE Risk Total Score: 4 VTE Risk Score VTE Risk: Score 0-1 = Low Risk (Aggressive mobilization; early ambulation; no VTE prophylaxis required) Score 2: Moderate Risk (Intermittent/Pneumatic Compression Device OR Lovenox/Heparin/Coumadin) Score 3-4: High Risk (Intermittent/Pneumatic Compression Device AND Lovenox/Heparin/Coumadin) Score > or =5: Highest Risk (Intermittent/Pneumatic Compression Device AND Lovenox/Heparin/Coumadin) Review of Systems Allergies: Coded Allergies: Penicillins (Verified Allergy, Severe, BLACKS OUT, 09/27/18) meperidine HCl (Verified Allergy, Severe, STOPS HEART, 09/27/18) codeine (Verified Allergy, Intermediate, RASH, 09/27/18) Scheduled Albuterol Sulfate (Albuterol Sulfate), 1 VIAL NEB BID, (Reported) Arformoterol Tartrate (Brovana), 1 VIAL NEB BID, (Reported) Atorvastatin 20MG (Lipitor 20MG), 1 TAB PO HS, (Reported) Hydrochlorothiazide (Hydrochlorothiazide), 0.5 TAB PO DAILY, (Reported) Ipratropium Molalla (Ipratropium Molalla), 0.2 MG IH BID, (Reported) Nifedipine (Nifedipine Er), 1 TAB PO DAILY, (Reported) Omeprazole (Omeprazole), 1 CAP PO DAILY, (Reported) Prednisone (Prednisone), 5 MG PO DAILY, (Reported) Scheduled PRN Albuterol Sulfate (Proair Hfa), 8.5 GM IH QID PRN for SHORTNESS OF BREATH, (Reported) Budesonide/Formoterol Fumarate (Symbicort 160-4.5 Mcg Inhaler), 2 PUFF IH BID PRN for SHORTNESS OF BREATH, (Reported) Lorazepam (Lorazepam), 1 TAB PO DAILY PRN for ANXIETY, (Reported) Objective Vitals and I/O Vital Sign - Last 24 Hours 10/02/18 10/02/18 10/02/18 10/02/18 08:00 08:20 08:22 12:07 Pulse 87 103 Resp 16 20 16 Pulse Ox 95 95 97 O2 Flow Rate 10 10/02/18 10/02/18 10/02/18 10/02/18 12:07 12:17 12:27 12:37 Temp 98.9 98.1 97.9 98.4 98.9 98.1 97.9 98.4 Pulse 88 92 82 86 Resp 18 16 17 16 B/P (MAP) 135/83 (100) 134/75 (94) 130/81 (97) 130/81 (97) Pulse Ox 97 98 98 96 O2 Delivery Non-Rebreather Non-Rebreather Non-Rebreather Non-Rebreather O2 Flow Rate 10 5 5 5 10/02/18 10/02/18 10/02/18 10/02/18 12:47 12:57 13:07 15:30 Temp 98.0 97.9 98.5 98.0 97.9 98.5 Pulse 98 93 105 87 Resp 17 18 18 16 B/P (MAP) 142/71 (94) 128/79 (95) 137/85 (102) Pulse Ox 93 93 93 96 O2 Delivery Nasal Canula Nasal Canula Nasal Canula O2 Flow Rate 3.5 3.5 3.5 FiO2 28 10/02/18 10/02/18 10/02/18 10/02/18 16:17 16:22 19:31 20:05 Temp 97.7 98.2 97.7 98.2 Pulse 98 99 Resp 18 20 B/P (MAP) 116/74 (88) 106/66 (79) Pulse Ox 95 94 O2 Delivery Nasal Cannula Nasal Canula Nasal Canula Nasal Cannula O2 Flow Rate 2.00 2.00 2.00 2.00 10/02/18 10/02/18 10/02/18 10/03/18 21:03 21:04 21:06 00:17 Temp 98.1 98.1 Pulse 99 99 99 91 Resp 20 18 18 18 B/P (MAP) 127/79 (95) Pulse Ox 94 94 94 97 O2 Delivery Nasal Cannula Nasal Canula O2 Flow Rate 2.00 2.00 FiO2 28 10/03/18 10/03/18 10/03/18 03:44 04:19 04:22 Temp 98.1 98.1 Pulse 85 90 94 Resp 17 18 18 B/P (MAP) 124/74 (91) Pulse Ox 91 92 92 O2 Delivery Nasal Canula O2 Flow Rate 2.00 Intake and Output 10/02/18 10/02/18 10/03/18 15:00 23:00 07:00 Intake Total 4022 ml 910 ml 50 ml Output Total 125 ml 370 ml 660 ml Balance 3897 ml 540 ml -610 ml General: Alert, Oriented X3, Cooperative, No acute distress HEENT: Atraumatic, PERRLA, EOMI, Mucous membr. moist/pink Neck: Supple, No JVD Lungs: Clear to auscultation, Normal air movement Heart: Regular rate, Normal S1, Normal S2, No murmurs Abdomen: Normal bowel sounds, Soft, No tenderness Extremities: No edema, Normal pulses, No tenderness/swelling Skin: No rashes, No breakdown, No significant lesion Neuro: Normal speech, Strength at 5/5 X4 ext, Normal tone, Sensation intact, Cranial nerves 3-12 NL Psych/Mental Status: Mental status NL, Mood NL All Results(Lab/Rad) Laboratory Tests Test 10/03/18 04:52 White Blood Count 11.3 10^3/uL Red Blood Count 3.91 10^6/uL Hemoglobin 10.6 g/dL Hematocrit 34.6 % Mean Corpuscular Volume 88.5 fL Mean Corpuscular Hemoglobin 27.1 pg Mean Corpuscular Hemoglobin Concent 30.6 g/dL Red Cell Distribution Width 23.7 % Platelet Count 356 10^3/uL Mean Platelet Volume 10.7 fL Neutrophils (%) (Auto) 78.0 % Lymphocytes (%) (Auto) 10.2 % Monocytes (%) (Auto) 11.0 % Neutrophils # (Auto) 8.8 10^3/uL Lymphocytes # (Auto) 1.2 10^3/uL Monocytes # (Auto) 1.2 10^3/uL Absolute Immature Granulocyte (auto 0.06 10^3 u/L Immature Granulocytes % 0.50 % Eosinophils % 0.2 % Basophils % 0.1 % Basophils # 0.0 10^3/uL Eosinophil Count 0.0 10^3/uL Sodium Level 141 mmol/L Potassium Level 3.9 mmol/L Chloride Level 105.0 mmol/L Carbon Dioxide Level 25.0 mmol/L Anion Gap 14.9 Blood Urea Nitrogen 13 mg/dL Creatinine 0.84 mg/dL Estimated GFR () 80.4 BUN/Creatinine Ratio 15.0 Glucose Level 117 mg/dL Calcium Level 10.1 mg/dL Total Bilirubin 0.4 mg/dL Aspartate Amino Transf (AST/SGOT) 21 U/L Alanine Aminotransferase (ALT/SGPT) 37 U/L Alkaline Phosphatase 75 U/L Total Protein 6.7 g/dL Albumin 3.1 g/dL Globulin 3.6 Current Medications Medications (Trade) Dose Ordered Sig/Mary Route PRN Reason Start Time Stop Time Status Last Admin Dose Admin Enoxaparin Sodium (Lovenox) 40 mg OT ONCE SQ 10/02/18 08:00 10/02/18 15:23 DC 10/02/18 06:39 Acetaminophen (Tylenol) 650 mg OT ONCE PO 10/02/18 08:00 10/02/18 16:49 DC 10/02/18 06:40 Celecoxib (Celebrex) 200 mg OT ONCE PO 10/02/18 08:00 10/02/18 15:24 DC 10/02/18 06:39 Albuterol Sulfate (Ventolin) 2.5 mg OT ONCE IH 10/02/18 06:00 10/02/18 15:24 DC 10/02/18 08:19 Gentamicin Sulfate/Sodium Chloride 50 ml @ ud STK-MED ONCE IV 10/02/18 07:24 10/02/18 07:25 DC Sodium Chloride (Sodium Chloride) 1,000 ml STK-MED ONCE IR 10/02/18 07:24 10/02/18 07:25 DC Bupivacaine HCl (Sensorcaine-Mpf 0.25% Vial) 2.5 mg STK-MED ONCE .ROUTE 10/02/18 07:29 10/02/18 07:31 DC Dexamethasone Sodium Phosphate (Decadron) 4 mg STK-MED ONCE .ROUTE 10/02/18 07:39 10/02/18 07:41 DC Lidocaine HCl (Lidocaine 2% Vial) 500 mg STK-MED ONCE .ROUTE 10/02/18 07:39 10/02/18 07:41 DC Neostigmine Methylsulfate (Neostigmine) 10 mg STK-MED ONCE .ROUTE 10/02/18 07:39 10/02/18 07:41 DC Ondansetron HCl (Zofran) 4 mg STK-MED ONCE .ROUTE 10/02/18 07:40 10/02/18 07:41 DC Rocuronium Molalla (Zemuron) 100 mg STK-MED ONCE IV 10/02/18 07:40 10/02/18 07:42 DC Hydromorphone HCl (Dilaudid) 2 mg STK-MED ONCE .ROUTE 10/02/18 07:40 10/02/18 07:42 DC Succinylcholine Chloride (Quelicin) 200 mg STK-MED ONCE .ROUTE 10/02/18 07:40 10/02/18 07:42 DC Fentanyl Citrate (Sublimaze) 100 mcg STK-MED ONCE .ROUTE 10/02/18 07:40 10/02/18 07:42 DC Propofol (Diprivan) 200 mg STK-MED ONCE IV 10/02/18 07:41 10/02/18 07:42 DC Sodium Chloride 100 ml @ ud STK-MED ONCE IV 10/02/18 07:41 10/02/18 07:43 DC Sterile Water (Water) 1,000 ml STK-MED ONCE .ROUTE 10/02/18 07:43 10/02/18 07:45 DC Methylene Blue (Methylene Blue) 10 mg STK-MED ONCE .ROUTE 10/02/18 10:04 10/02/18 10:06 DC Albuterol/ Ipratropium (Duoneb 0.5 Mg-3 Mg/3 ml Soln) 3 ml STK-MED ONCE IH 10/02/18 12:02 10/02/18 12:04 DC Hydromorphone HCl (Dilaudid) 0.2 mg Q5MIN PRN IV PAIN 1 - 3 10/02/18 12:30 10/02/18 15:20 DC 10/02/18 12:34 Fentanyl Citrate (Sublimaze) 12.5 mcg Q5MIN PRN IV PAIN 10/02/18 12:30 10/02/18 15:24 DC Ondansetron HCl (Zofran) 4 mg PRN PRN IV nv 10/02/18 12:30 10/02/18 15:20 DC Albuterol/ Ipratropium (Duoneb 0.5 Mg-3 Mg/3 ml Soln) 3 ml STAT STAT IH 10/02/18 12:18 10/02/18 15:23 DC 10/02/18 12:07 Morphine Sulfate (Morphine Sulfate) 1 mg Q4H PRN IV PAIN 4 - 6 10/02/18 12:30 11/01/18 12:29 Morphine Sulfate (Morphine Sulfate) 3 mg Q3H PRN IV PAIN 7 - 10 10/02/18 12:30 11/01/18 12:29 Acetaminophen/ Hydrocodone Bitart (Baxter 5mg) 1 ea Q4H PRN PO PAIN 4 - 6 10/02/18 12:30 11/01/18 12:29 Ondansetron HCl (Zofran) 4 mg Q6 PRN IV NAUSEA / VOMITING 10/02/18 12:30 10/02/18 16:52 DC Pantoprazole Sodium (Protonix Iv) 40 mg DAILY IV 10/03/18 09:00 11/02/18 08:59 Simethicone (Genasyme) 80 mg Q4 PRN PO GAS/BLOATING 10/02/18 12:30 11/01/18 12:29 10/02/18 21:22 Potassium Chloride/Dextrose/ Sod Cl 1,000 ml @ 125 mls/hr Q8H IV 10/02/18 12:14 11/01/18 12:13 10/03/18 03:55 Promethazine HCl 12.5 mg/Sodium Chloride 50.5 ml @ 150 mls/hr Q8 PRN IV NAUSEA / VOMITING 10/02/18 12:30 11/01/18 12:29 Cefoxitin Sodium 1 gm/Sodium Chloride 100 ml @ 100 mls/hr Q6H IV 10/02/18 15:00 10/02/18 16:50 DC 10/02/18 15:00 Atorvastatin Calcium (Lipitor) 20 mg HS PO 10/02/18 21:00 11/01/18 20:59 10/02/18 20:25 Hydrochlorothiazide (Hydrochlorothiazide) 12.5 mg DAILY PO 10/03/18 09:00 11/02/18 08:59 Budesonide (Pulmicort) 0.5 mg RTBID IH 10/02/18 21:00 11/01/18 20:59 10/02/18 21:01 Nifedipine (Procardia) 30 mg DAILY PO 10/03/18 09:00 11/02/18 08:59 Prednisone (Prednisone) 5 mg DAILY PO 10/03/18 09:00 11/02/18 08:59 Ondansetron HCl (Zofran) 4 mg Q4H PRN IV NAUSEA / VOMITING 10/02/18 16:30 11/01/18 16:29 Albuterol/ Ipratropium (Duoneb 0.5 Mg-3 Mg/3 ml Soln) 3 ml Q6HR PRN IH WHEEZING 10/02/18 16:30 11/01/18 16:29 10/03/18 04:19 Cefoxitin Sodium 50 ml @ 100 mls/hr Q6H IV 10/02/18 17:00 10/03/18 07:28 DC 10/03/18 05:13 Acetaminophen (Tylenol) 650 mg Q6 PRN PO PAIN 1-6 10/02/18 18:30 11/01/18 18:29 10/03/18 04:08 Cephalexin (Keflex) 250 mg TID PO 10/03/18 09:00 11/02/18 08:59 UNV Course Sepsis Screening Results: Posi: NEGATIVE Sepsis Qualifier/Stage: NO DEFINITE RISK Duration or Total Time Spent w: 2 HRS Vitals & review Data Vital Sign - Last 24 Hours 10/02/18 10/02/18 10/02/18 10/02/18 08:00 08:20 08:22 12:07 Pulse 87 103 Resp 16 20 16 Pulse Ox 95 95 97 O2 Flow Rate 10 10/02/18 10/02/18 10/02/18 10/02/18 12:07 12:17 12:27 12:37 Temp 98.9 98.1 97.9 98.4 98.9 98.1 97.9 98.4 Pulse 88 92 82 86 Resp 18 16 17 16 B/P (MAP) 135/83 (100) 134/75 (94) 130/81 (97) 130/81 (97) Pulse Ox 97 98 98 96 O2 Delivery Non-Rebreather Non-Rebreather Non-Rebreather Non-Rebreather O2 Flow Rate 10 5 5 5 10/02/18 10/02/18 10/02/18 10/02/18 12:47 12:57 13:07 15:30 Temp 98.0 97.9 98.5 98.0 97.9 98.5 Pulse 98 93 105 87 Resp 17 18 18 16 B/P (MAP) 142/71 (94) 128/79 (95) 137/85 (102) Pulse Ox 93 93 93 96 O2 Delivery Nasal Canula Nasal Canula Nasal Canula O2 Flow Rate 3.5 3.5 3.5 FiO2 28 10/02/18 10/02/18 10/02/18 10/02/18 16:17 16:22 19:31 20:05 Temp 97.7 98.2 97.7 98.2 Pulse 98 99 Resp 18 20 B/P (MAP) 116/74 (88) 106/66 (79) Pulse Ox 95 94 O2 Delivery Nasal Cannula Nasal Canula Nasal Canula Nasal Cannula O2 Flow Rate 2.00 2.00 2.00 2.00 10/02/18 10/02/18 10/02/18 10/03/18 21:03 21:04 21:06 00:17 Temp 98.1 98.1 Pulse 99 99 99 91 Resp 20 18 18 18 B/P (MAP) 127/79 (95) Pulse Ox 94 94 94 97 O2 Delivery Nasal Cannula Nasal Canula O2 Flow Rate 2.00 2.00 FiO2 28 10/03/18 10/03/18 10/03/18 03:44 04:19 04:22 Temp 98.1 98.1 Pulse 85 90 94 Resp 17 18 18 B/P (MAP) 124/74 (91) Pulse Ox 91 92 92 O2 Delivery Nasal Canula O2 Flow Rate 2.00 Intake and Output 10/02/18 10/02/18 10/03/18 15:00 23:00 07:00 Intake Total 4022 ml 910 ml 50 ml Output Total 125 ml 370 ml 660 ml Balance 3897 ml 540 ml -610 ml Laboratory Tests Test 10/03/18 04:52 White Blood Count 11.3 10^3/uL Red Blood Count 3.91 10^6/uL Hemoglobin 10.6 g/dL Hematocrit 34.6 % Mean Corpuscular Volume 88.5 fL Mean Corpuscular Hemoglobin 27.1 pg Mean Corpuscular Hemoglobin Concent 30.6 g/dL Red Cell Distribution Width 23.7 % Platelet Count 356 10^3/uL Mean Platelet Volume 10.7 fL Neutrophils (%) (Auto) 78.0 % Lymphocytes (%) (Auto) 10.2 % Monocytes (%) (Auto) 11.0 % Neutrophils # (Auto) 8.8 10^3/uL Lymphocytes # (Auto) 1.2 10^3/uL Monocytes # (Auto) 1.2 10^3/uL Absolute Immature Granulocyte (auto 0.06 10^3 u/L Immature Granulocytes % 0.50 % Eosinophils % 0.2 % Basophils % 0.1 % Basophils # 0.0 10^3/uL Eosinophil Count 0.0 10^3/uL Sodium Level 141 mmol/L Potassium Level 3.9 mmol/L Chloride Level 105.0 mmol/L Carbon Dioxide Level 25.0 mmol/L Anion Gap 14.9 Blood Urea Nitrogen 13 mg/dL Creatinine 0.84 mg/dL Estimated GFR () 80.4 BUN/Creatinine Ratio 15.0 Glucose Level 117 mg/dL Calcium Level 10.1 mg/dL Total Bilirubin 0.4 mg/dL Aspartate Amino Transf (AST/SGOT) 21 U/L Alanine Aminotransferase (ALT/SGPT) 37 U/L Alkaline Phosphatase 75 U/L Total Protein 6.7 g/dL Albumin 3.1 g/dL Globulin 3.6 Current Medications Medications (Trade) Dose Ordered Sig/Mary PRN Reason Start Time Stop Time Status Last Admin Acetaminophen (Tylenol) 650 mg Q6 PRN PAIN 1-6 10/02/18 18:30 11/01/18 18:29 10/03/18 04:08 Acetaminophen/ Hydrocodone Bitart (Baxter 5mg) 1 ea Q4H PRN PAIN 4 - 6 10/02/18 12:30 11/01/18 12:29 Albuterol/ Ipratropium (Duoneb 0.5 Mg-3 Mg/3 ml Soln) 3 ml Q6HR PRN WHEEZING 10/02/18 16:30 11/01/18 16:29 10/03/18 04:19 Atorvastatin Calcium (Lipitor) 20 mg HS 10/02/18 21:00 11/01/18 20:59 10/02/18 20:25 Budesonide (Pulmicort) 0.5 mg RTBID 10/02/18 21:00 11/01/18 20:59 10/02/18 21:01 Cephalexin (Keflex) 250 mg TID 10/03/18 09:00 11/02/18 08:59 UNV Hydrochlorothiazide (Hydrochlorothiazide) 12.5 mg DAILY 10/03/18 09:00 11/02/18 08:59 Morphine Sulfate (Morphine Sulfate) 1 mg Q4H PRN PAIN 4 - 6 10/02/18 12:30 11/01/18 12:29 Morphine Sulfate (Morphine Sulfate) 3 mg Q3H PRN PAIN 7 - 10 10/02/18 12:30 11/01/18 12:29 Nifedipine (Procardia) 30 mg DAILY 10/03/18 09:00 11/02/18 08:59 Ondansetron HCl (Zofran) 4 mg Q4H PRN NAUSEA / VOMITING 10/02/18 16:30 11/01/18 16:29 Pantoprazole Sodium (Protonix Iv) 40 mg DAILY 10/03/18 09:00 11/02/18 08:59 Potassium Chloride/Dextrose/ Sod Cl 1,000 ml @ 125 mls/hr Q8H 10/02/18 12:14 11/01/18 12:13 10/03/18 03:55 Prednisone (Prednisone) 5 mg DAILY 10/03/18 09:00 11/02/18 08:59 Promethazine HCl 12.5 mg/Sodium Chloride 50.5 ml @ 150 mls/hr Q8 PRN NAUSEA / VOMITING 10/02/18 12:30 11/01/18 12:29 Simethicone (Genasyme) 80 mg Q4 PRN GAS/BLOATING 10/02/18 12:30 11/01/18 12:29 10/02/18 21:22 Sepsis Infection Criteria Pres: None LEVEL 1 SEPSIS INFECTION CRITE: ABX Therapy, None/Not assessed O2 Sat by Pulse Oximetry: 92 Oxygen Flow Rate: 2.00 Assessment/Plan Assessment/Plan Assessment/Plan 1. Incarcerated Ventral Hernia: s/p repair, surgery managing. Cont pain control, CLD. DENNIS drain in place, monitor output. Cont PO abx. 2. HLD: cont Statin 3. COPD: cont O2 support, nebs PRN. Daily Prednisone. 4. HTN: cont home meds 5. PPx: Lovenox, PPI Plan 1. Incarcerated Ventral Hernia: s/p repair, surgery managing. Cont pain control, CLD. 2. HLD: cont Statin 3. COPD: cont O2 support, nebs PRN. Daily Prednisone. 4. HTN: cont home meds 5. PPx: Lovenox, PPI CATINA MARTEL MD Oct 03, 2018 08:01
[2018-10-03] MEDS: PULMICORT IH SCH ×2 (08:50→20:32)
[2018-10-03 09:05] VITALS: BP 125/79
[2018-10-03] MEDS: PROCARDIA PO SCH (09:10)
[2018-10-03] MEDS: KEFLEX PO SCH ×3 (09:11→20:48)
[2018-10-03] MEDS: PROTONIX IV IV SCH (09:11)
[2018-10-03] MEDS: PREDNISONE PO SCH (09:11)
[2018-10-03] MEDS: HYDROCHLOROTHIAZIDE PO SCH (09:11)
--- NOTE | 2018-10-03 10:18 | NUR ---
DISCHARGE PLAN CASE MANAGEMENT VISITED WITH PATIENT CONCERNING DISCHARGE PLAN AND NEEDS. LIVES AT HOME WITH . INDEPENDENT OF ADLS. HAS 2 SUPPORTIVE SON'S THAT HAVE BUILT A RAMP IN THE BACK OF THE HOUSE AND WHO ARE ALSO COMING THIS WEEKEND TO MODIFY HER BATHROOM WITH GRAB BARS AND EQUIPMENT TO HELP HER SHOWER. CURRENTLY HAS HOME OXYGEN IN PLACE, BUT CAN'T REMEMBER THE COMPANY. CM EDUCATED PATIENT ON OUTPATIENT SERVICES AND HOME HEALTH. DENIES NEED FOR SERVICES AT THIS TIME. REFUSAL LETTER PRESENTED, SIGNED, AND PLACED ON CHART. DISCHARGE PLAN IS TO DISCHARGE HOME WITH AND CONTINUE SELF CARE. CM WILL CONTINUE TO FOLLOW DISCHARGE NEEDS.
--- NOTE | 2018-10-03 13:30 | NUR ---
AMBULATION ENCOURAGED PT TO AMBULATE IN THE HALLWAY, PT INSISTED THAT SHE WILL WALK IN ROOM INSTEAD
--- NOTE | 2018-10-03 13:41 | NUR ---
Post-op day 1 follow-up for bilateral QL block. Pt v/s stable. Pt sitting up in chair at bedside. Pt has been ambulating. Pt states she has very little pain and has been taking tylenol for it. Pt feels mild tenderness over midline incision and states that she is very satisfied with her pain control. Block sites are cdi, no redness or hematoma. Pt denies questions or concerns.
[2018-10-03 16:53] VITALS: BP 120/70
--- NOTE | 2018-10-03 18:20 | NUR ---
REPORT RECEIVED REPORT FROM OUTGOING SHIFT
[2018-10-03 20:03] VITALS: BP 128/81
[2018-10-03] MEDS: LIPITOR PO SCH (20:48)
--- NOTE | 2018-10-03 20:57 | PNH ---
DATE: FOLLOWUP VISIT SUBJECTIVE: A 73-year-old female in no acute distress, seen in her room. She is tolerating clear liquids. She has some postoperative pain. On repeat evaluation, she is noted to have inadequate ambulation today. She is strongly advised to the necessity for an ambulate in the hallway. OBJECTIVE: VITAL SIGNS: Last temperature is 98.4, pulse 84, respiratory rate 18, blood pressure 125/79. ABDOMEN: Bowel sounds are decreased. Her dressing is intact. LABORATORY DATA: Today show white count 11.3, hemoglobin 10.6, and platelet count 356. BUN of 13, creatinine 0.84, albumin 3.1. ASSESSMENT: 1. Postoperative day #1, exploratory laparotomy, lysis of adhesions. 2. Repair of multiple hernias. 3. Overlay mesh. PLAN: 1. The patient is seen and examined. Chart is reviewed. 2. Continue medical management per the primary service. 3. Increase diet and activity when able. Esdras Leary DO DR: MEMO/leisa JOB# [id number] CC: Johnie Whitfield M.D.
[2018-10-04 00:27] VITALS: BP 129/72
--- NOTE | 2018-10-04 02:00 | NUR ---
ambulate pt ambulated at this time on the hallway with nurse accompanying.
[2018-10-04] MEDS: DUONEB 0.5 MG-3 MG/3 ML SOLN IH PRN ×2 (02:10→15:44)
[2018-10-04 04:19] VITALS: BP 102/56
[2018-10-04] MEDS: D5W-1/2 NS/KCL 20MEQ 1,000 ML IV SCH (04:39)
[2018-10-04 05:05] LABS: BASOPHIL % 0.3 % (0.0-0.2); EOSINOPHIL # 0.4 10^3/uL (0.0-0.2); EOSINOPHIL % 4.6 % (0.0-5.0); LYMPHOCYTES # 1.3 10^3/uL (1.0-4.8); LYMPHOCYTES % 16.9 % (24.0-44.0); MEAN CELL HGB 27.1 pg (26-34); MEAN CELL HGB CONCENTRATION 30.1 g/dL (33-37); MEAN CORP VOLUME 90.1 fL (78-100); MEAN PLATELET VOLUME 9.7 fL (7.8-11.0); MONOCYTES % 12.4 % (5.0-12.0); NEUTROPHIL # 5.1 10^3/uL (1.8-7.7); NEUTROPHILS % 65.2 % (41.0-85.0); RED CELL DISTRIBUTION WIDTH 23.8 % (11.5-14.5); WHITE BLOOD CELL 7.8 10^3/uL (4.5-11.0)
[2018-10-04 05:24] LABS: CALCIUM 9.5 mg/dL (8.4-10.5); CARBON DIOXIDE 28.3 mmol/L (20.0-32)
--- NOTE | 2018-10-04 06:42 | NUR ---
REPORT REPORT RECEIVED FROM TINO SQUIRES ASSUMED CARE OF PT
[2018-10-04 07:01] VITALS: BP 113/61
[2018-10-04] MEDS: PULMICORT IH SCH (08:21)
[2018-10-04] MEDS: PROTONIX IV IV SCH (09:02)
[2018-10-04] MEDS: KEFLEX PO SCH ×2 (09:02→15:11)
[2018-10-04] MEDS: PROCARDIA PO SCH (09:02)
[2018-10-04] MEDS: HYDROCHLOROTHIAZIDE PO SCH (09:02)
[2018-10-04] MEDS: PREDNISONE PO SCH (09:02)
[2018-10-04] MEDS: TYLENOL PO PRN (09:03)
[2018-10-04] MEDS ORDERED: POTASSIUM CHLORIDE PO STA (10:15)
[2018-10-04 12:08] VITALS: BP 146/76
[2018-10-04 13:01] LABS: BASOPHIL # 0.1 10^3/uL (0.0-0.1); BASOPHIL % 0.5 % (0.0-0.2); EOSINOPHIL # 0.4 10^3/uL (0.0-0.2); EOSINOPHIL % 3.7 % (0.0-5.0); HEMOGLOBIN 10.7 g/dL (12.0-15.0); LYMPHOCYTES # 0.7 10^3/uL (1.0-4.8); LYMPHOCYTES % 6.8 % (24.0-44.0); MEAN CELL HGB 27.2 pg (26-34); MEAN CELL HGB CONCENTRATION 30.2 g/dL (33-37); MEAN CORP VOLUME 89.8 fL (78-100); MEAN PLATELET VOLUME 9.5 fL (7.8-11.0); MONOCYTES # 0.8 10^3/uL (0.3-0.8); MONOCYTES % 6.9 % (5.0-12.0); NEUTROPHIL # 8.9 10^3/uL (1.8-7.7); NEUTROPHILS % 81.4 % (41.0-85.0); RED CELL DISTRIBUTION WIDTH 23.9 % (11.5-14.5); WHITE BLOOD CELL 10.9 10^3/uL (4.5-11.0)
[2018-10-04 13:32] LABS: BAND NEUTROPHILS 2 % (2-6); EOSINOPHIL 2 % (1-4); LYMPHOCYTE 5 % (25-36); MONOCYTE 5 % (3-9); SEGMENTED NEUTROPHILS 86 % (31-76)
[2018-10-04 13:33] LABS: ANISOCYTOSIS 1+ (NEGATIVE)
[2018-10-04] MEDS ORDERED: TRAM50TA PO (14:36)
[2018-10-04] MEDS ORDERED: CEPH250C PO (14:36)
--- NOTE | 2018-10-04 14:44 | PRM.DC ---
Discharge Summary Date of Discharge: Oct 04, 2018 Time of Request to Discharge: 14:45 Reason for Visit: S/P hernia repair Hospital Course Patient admitted following schedule Ventral Hernia repair. Patient underwent routine postoperative care. Surgery managed including slow advancing of diet. Day of d/c patient was tolerating regular diet, her pain was controlled, and she was ambulating without difficulty. Patient does have DENNIS drain in place. She will f/u outpatient with surgery for removal. We will d/c on PO abx. Patient denies any other complains. She is medically clear to d/c to home self care. Strict return precautions given. F/U with surgery on 10/08/18. Patient History: No known health problems G8 BROTHER 19 CHILD, , Age:12 19 CHILD, , Age:21 19 CHILD 19 CHILD 19 CHILD Unknown 32 MOTHER (PT ADOPTED) 33 FATHER (PT ADOPTED) No Family History of: Alzheimer's disease Asthma Cerebrovascular disorder Chronic obstructive pulmonary disease Congestive heart failure Diabetes insipidus Diabetes mellitus Hypertension Parkinson's disease General: Alert, Oriented X3, Cooperative, No acute distress HEENT: Atraumatic, PERRLA, EOMI, Mucous membr. moist/pink Neck: Supple, No JVD Lungs: Clear to auscultation, Normal air movement Heart: Regular rate, Normal S1, Normal S2, No murmurs Abdomen: Normal bowel sounds, Soft, No tenderness, Other (DENNIS drain) Extremities: No edema, Normal pulses, No tenderness/swelling Skin: No rashes, No breakdown, No significant lesion Neuro: Normal gait, Normal speech, Strength at 5/5 X4 ext, Normal tone, Sensation intact, Cranial nerves 3-12 NL Psych/Mental Status: Mental status NL, Mood NL Scheduled Albuterol Sulfate (Albuterol Sulfate), 1 VIAL NEB BID, (Reported) Arformoterol Tartrate (Brovana), 1 VIAL NEB BID, (Reported) Atorvastatin 20MG (Lipitor 20MG), 1 TAB PO HS, (Reported) Cephalexin (Cephalexin), 250 MG PO TID Hydrochlorothiazide (Hydrochlorothiazide), 0.5 TAB PO DAILY, (Reported) Ipratropium [place] (Ipratropium [place]), 0.2 MG IH BID, (Reported) Nifedipine (Nifedipine Er), 1 TAB PO DAILY, (Reported) Omeprazole (Omeprazole), 1 CAP PO DAILY, (Reported) Prednisone (Prednisone), 5 MG PO DAILY, (Reported) Scheduled PRN Albuterol Sulfate (Proair Hfa), 8.5 GM IH QID PRN for SHORTNESS OF BREATH, (Reported) Budesonide/Formoterol Fumarate (Symbicort 160-4.5 Mcg Inhaler), 2 PUFF IH BID PRN for SHORTNESS OF BREATH, (Reported) Lorazepam (Lorazepam), 1 TAB PO DAILY PRN for ANXIETY, (Reported) Tramadol Hcl (Tramadol Hcl), 50 MG PO Q4 PRN for PAIN Sepsis Evaluation @ Discharge Vital Sign - Last 24 Hours 10/02/18 10/02/18 10/02/18 10/02/18 08:00 08:20 08:22 12:07 Pulse 87 103 Resp 16 20 16 Pulse Ox 95 95 97 O2 Flow Rate 10 10/02/18 10/02/18 10/02/18 10/02/18 12:07 12:17 12:27 12:37 Temp 98.9 98.1 97.9 98.4 98.9 98.1 97.9 98.4 Pulse 88 92 82 86 Resp 18 16 17 16 B/P (MAP) 135/83 (100) 134/75 (94) 130/81 (97) 130/81 (97) Pulse Ox 97 98 98 96 O2 Delivery Non-Rebreather Non-Rebreather Non-Rebreather Non-Rebreather O2 Flow Rate 10 5 5 5 10/02/18 10/02/18 10/02/18 10/02/18 12:47 12:57 13:07 15:30 Temp 98.0 97.9 98.5 98.0 97.9 98.5 Pulse 98 93 105 87 Resp 17 18 18 16 B/P (MAP) 142/71 (94) 128/79 (95) 137/85 (102) Pulse Ox 93 93 93 96 O2 Delivery Nasal Canula Nasal Canula Nasal Canula O2 Flow Rate 3.5 3.5 3.5 FiO2 28 10/02/18 10/02/18 10/02/18 10/02/18 16:17 16:22 19:31 20:05 Temp 97.7 98.2 97.7 98.2 Pulse 98 99 Resp 18 20 B/P (MAP) 116/74 (88) 106/66 (79) Pulse Ox 95 94 O2 Delivery Nasal Cannula Nasal Canula Nasal Canula Nasal Cannula O2 Flow Rate 2.00 2.00 2.00 2.00 10/02/18 10/02/18 10/02/18 10/03/18 21:03 21:04 21:06 00:17 Temp 98.1 98.1 Pulse 99 99 99 91 Resp 20 18 18 18 B/P (MAP) 127/79 (95) Pulse Ox 94 94 94 97 O2 Delivery Nasal Cannula Nasal Canula O2 Flow Rate 2.00 2.00 FiO2 28 10/03/18 10/03/18 10/03/18 03:44 04:19 04:22 Temp 98.1 98.1 Pulse 85 90 94 Resp 17 18 18 B/P (MAP) 124/74 (91) Pulse Ox 91 92 92 O2 Delivery Nasal Canula O2 Flow Rate 2.00 Intake and Output 10/02/18 10/02/18 10/03/18 15:00 23:00 07:00 Intake Total 4022 ml 910 ml 50 ml Output Total 125 ml 370 ml 660 ml Balance 3897 ml 540 ml -610 ml Laboratory Tests Test 10/03/18 04:52 White Blood Count 11.3 10^3/uL Red Blood Count 3.91 10^6/uL Hemoglobin 10.6 g/dL Hematocrit 34.6 % Mean Corpuscular Volume 88.5 fL Mean Corpuscular Hemoglobin 27.1 pg Mean Corpuscular Hemoglobin Concent 30.6 g/dL Red Cell Distribution Width 23.7 % Platelet Count 356 10^3/uL Mean Platelet Volume 10.7 fL Neutrophils (%) (Auto) 78.0 % Lymphocytes (%) (Auto) 10.2 % Monocytes (%) (Auto) 11.0 % Neutrophils # (Auto) 8.8 10^3/uL Lymphocytes # (Auto) 1.2 10^3/uL Monocytes # (Auto) 1.2 10^3/uL Absolute Immature Granulocyte (auto 0.06 10^3 u/L Immature Granulocytes % 0.50 % Eosinophils % 0.2 % Basophils % 0.1 % Basophils # 0.0 10^3/uL Eosinophil Count 0.0 10^3/uL Sodium Level 141 mmol/L Potassium Level 3.9 mmol/L Chloride Level 105.0 mmol/L Carbon Dioxide Level 25.0 mmol/L Anion Gap 14.9 Blood Urea Nitrogen 13 mg/dL Creatinine 0.84 mg/dL Estimated GFR () 80.4 BUN/Creatinine Ratio 15.0 Glucose Level 117 mg/dL Calcium Level 10.1 mg/dL Total Bilirubin 0.4 mg/dL Aspartate Amino Transf (AST/SGOT) 21 U/L Alanine Aminotransferase (ALT/SGPT) 37 U/L Alkaline Phosphatase 75 U/L Total Protein 6.7 g/dL Albumin 3.1 g/dL Globulin 3.6 Current Medications Medications (Trade) Dose Ordered Sig/Mary PRN Reason Start Time Stop Time Status Last Admin Acetaminophen (Tylenol) 650 mg Q6 PRN PAIN 1-6 10/02/18 18:30 11/01/18 18:29 10/03/18 04:08 Acetaminophen/ Hydrocodone Bitart ([place] 5mg) 1 ea Q4H PRN PAIN 4 - 6 10/02/18 12:30 11/01/18 12:29 Albuterol/ Ipratropium (Duoneb 0.5 Mg-3 Mg/3 ml Soln) 3 ml Q6HR PRN WHEEZING 10/02/18 16:30 11/01/18 16:29 10/03/18 04:19 Atorvastatin Calcium (Lipitor) 20 mg HS 10/02/18 21:00 11/01/18 20:59 10/02/18 20:25 Budesonide (Pulmicort) 0.5 mg RTBID 10/02/18 21:00 11/01/18 20:59 10/02/18 21:01 Cephalexin (Keflex) 250 mg TID 10/03/18 09:00 11/02/18 08:59 UNV Hydrochlorothiazide (Hydrochlorothiazide) 12.5 mg DAILY 10/03/18 09:00 11/02/18 08:59 Morphine Sulfate (Morphine Sulfate) 1 mg Q4H PRN PAIN 4 - 6 10/02/18 12:30 11/01/18 12:29 Morphine Sulfate (Morphine Sulfate) 3 mg Q3H PRN PAIN 7 - 10 10/02/18 12:30 11/01/18 12:29 Nifedipine (Procardia) 30 mg DAILY 10/03/18 09:00 11/02/18 08:59 Ondansetron HCl (Zofran) 4 mg Q4H PRN NAUSEA / VOMITING 10/02/18 16:30 11/01/18 16:29 Pantoprazole Sodium (Protonix Iv) 40 mg DAILY 10/03/18 09:00 11/02/18 08:59 Potassium Chloride/Dextrose/ Sod Cl 1,000 ml @ 125 mls/hr Q8H 10/02/18 12:14 11/01/18 12:13 10/03/18 03:55 Prednisone (Prednisone) 5 mg DAILY 10/03/18 09:00 11/02/18 08:59 Promethazine HCl 12.5 mg/Sodium Chloride 50.5 ml @ 150 mls/hr Q8 PRN NAUSEA / VOMITING 10/02/18 12:30 11/01/18 12:29 Simethicone (Genasyme) 80 mg Q4 PRN GAS/BLOATING 10/02/18 12:30 11/01/18 12:29 10/02/18 21:22 Course Sepsis Screening Results: Posi: NEGATIVE Sepsis Qualifier/Stage: NO DEFINITE RISK Duration or Total Time Spent w: 2 HRS Vitals & review Data Vital Sign - Last 24 Hours 10/02/18 10/02/18 10/02/18 10/02/18 08:00 08:20 08:22 12:07 Pulse 87 103 Resp 16 20 16 Pulse Ox 95 95 97 O2 Flow Rate 10 10/02/18 10/02/18 10/02/18 10/02/18 12:07 12:17 12:27 12:37 Temp 98.9 98.1 97.9 98.4 98.9 98.1 97.9 98.4 Pulse 88 92 82 86 Resp 18 16 17 16 B/P (MAP) 135/83 (100) 134/75 (94) 130/81 (97) 130/81 (97) Pulse Ox 97 98 98 96 O2 Delivery Non-Rebreather Non-Rebreather Non-Rebreather Non-Rebreather O2 Flow Rate 10 5 5 5 10/02/18 10/02/18 10/02/18 10/02/18 12:47 12:57 13:07 15:30 Temp 98.0 97.9 98.5 98.0 97.9 98.5 Pulse 98 93 105 87 Resp 17 18 18 16 B/P (MAP) 142/71 (94) 128/79 (95) 137/85 (102) Pulse Ox 93 93 93 96 O2 Delivery Nasal Canula Nasal Canula Nasal Canula O2 Flow Rate 3.5 3.5 3.5 FiO2 28 10/02/18 10/02/18 10/02/18 10/02/18 16:17 16:22 19:31 20:05 Temp 97.7 98.2 97.7 98.2 Pulse 98 99 Resp 18 20 B/P (MAP) 116/74 (88) 106/66 (79) Pulse Ox 95 94 O2 Delivery Nasal Cannula Nasal Canula Nasal Canula Nasal Cannula O2 Flow Rate 2.00 2.00 2.00 2.00 10/02/18 10/02/18 10/02/18 10/03/18 21:03 21:04 21:06 00:17 Temp 98.1 98.1 Pulse 99 99 99 91 Resp 20 18 18 18 B/P (MAP) 127/79 (95) Pulse Ox 94 94 94 97 O2 Delivery Nasal Cannula Nasal Canula O2 Flow Rate 2.00 2.00 FiO2 28 10/03/18 10/03/18 10/03/18 03:44 04:19 04:22 Temp 98.1 98.1 Pulse 85 90 94 Resp 17 18 18 B/P (MAP) 124/74 (91) Pulse Ox 91 92 92 O2 Delivery Nasal Canula O2 Flow Rate 2.00 Intake and Output 10/02/18 10/02/18 10/03/18 15:00 23:00 07:00 Intake Total 4022 ml 910 ml 50 ml Output Total 125 ml 370 ml 660 ml Balance 3897 ml 540 ml -610 ml Laboratory Tests Test 10/03/18 04:52 White Blood Count 11.3 10^3/uL Red Blood Count 3.91 10^6/uL Hemoglobin 10.6 g/dL Hematocrit 34.6 % Mean Corpuscular Volume 88.5 fL Mean Corpuscular Hemoglobin 27.1 pg Mean Corpuscular Hemoglobin Concent 30.6 g/dL Red Cell Distribution Width 23.7 % Platelet Count 356 10^3/uL Mean Platelet Volume 10.7 fL Neutrophils (%) (Auto) 78.0 % Lymphocytes (%) (Auto) 10.2 % Monocytes (%) (Auto) 11.0 % Neutrophils # (Auto) 8.8 10^3/uL Lymphocytes # (Auto) 1.2 10^3/uL Monocytes # (Auto) 1.2 10^3/uL Absolute Immature Granulocyte (auto 0.06 10^3 u/L Immature Granulocytes % 0.50 % Eosinophils % 0.2 % Basophils % 0.1 % Basophils # 0.0 10^3/uL Eosinophil Count 0.0 10^3/uL Sodium Level 141 mmol/L Potassium Level 3.9 mmol/L Chloride Level 105.0 mmol/L Carbon Dioxide Level 25.0 mmol/L Anion Gap 14.9 Blood Urea Nitrogen 13 mg/dL Creatinine 0.84 mg/dL Estimated GFR () 80.4 BUN/Creatinine Ratio 15.0 Glucose Level 117 mg/dL Calcium Level 10.1 mg/dL Total Bilirubin 0.4 mg/dL Aspartate Amino Transf (AST/SGOT) 21 U/L Alanine Aminotransferase (ALT/SGPT) 37 U/L Alkaline Phosphatase 75 U/L Total Protein 6.7 g/dL Albumin 3.1 g/dL Globulin 3.6 Current Medications Medications (Trade) Dose Ordered Sig/Mary PRN Reason Start Time Stop Time Status Last Admin Acetaminophen (Tylenol) 650 mg Q6 PRN PAIN 1-6 10/02/18 18:30 11/01/18 18:29 10/03/18 04:08 Acetaminophen/ Hydrocodone Bitart ([place] 5mg) 1 ea Q4H PRN PAIN 4 - 6 10/02/18 12:30 11/01/18 12:29 Albuterol/ Ipratropium (Duoneb 0.5 Mg-3 Mg/3 ml Soln) 3 ml Q6HR PRN WHEEZING 10/02/18 16:30 11/01/18 16:29 10/03/18 04:19 Atorvastatin Calcium (Lipitor) 20 mg HS 10/02/18 21:00 11/01/18 20:59 10/02/18 20:25 Budesonide (Pulmicort) 0.5 mg RTBID 10/02/18 21:00 11/01/18 20:59 10/02/18 21:01 Cephalexin (Keflex) 250 mg TID 10/03/18 09:00 11/02/18 08:59 UNV Hydrochlorothiazide (Hydrochlorothiazide) 12.5 mg DAILY 10/03/18 09:00 11/02/18 08:59 Morphine Sulfate (Morphine Sulfate) 1 mg Q4H PRN PAIN 4 - 6 10/02/18 12:30 11/01/18 12:29 Morphine Sulfate (Morphine Sulfate) 3 mg Q3H PRN PAIN 7 - 10 10/02/18 12:30 11/01/18 12:29 Nifedipine (Procardia) 30 mg DAILY 10/03/18 09:00 11/02/18 08:59 Ondansetron HCl (Zofran) 4 mg Q4H PRN NAUSEA / VOMITING 10/02/18 16:30 11/01/18 16:29 Pantoprazole Sodium (Protonix Iv) 40 mg DAILY 10/03/18 09:00 11/02/18 08:59 Potassium Chloride/Dextrose/ Sod Cl 1,000 ml @ 125 mls/hr Q8H 10/02/18 12:14 11/01/18 12:13 10/03/18 03:55 Prednisone (Prednisone) 5 mg DAILY 10/03/18 09:00 11/02/18 08:59 Promethazine HCl 12.5 mg/Sodium Chloride 50.5 ml @ 150 mls/hr Q8 PRN NAUSEA / VOMITING 10/02/18 12:30 11/01/18 12:29 Simethicone (Genasyme) 80 mg Q4 PRN GAS/BLOATING 10/02/18 12:30 11/01/18 12:29 10/02/18 21:22 Sepsis Infection Criteria Pres: None LEVEL 1 SEPSIS INFECTION CRITE: ABX Therapy, None/Not assessed O2 Sat by Pulse Oximetry: 96 Oxygen Flow Rate: 2.00 Plan Discharge Date: Oct 04, 2018 Dicharge DX: Incarcerated Ventral Hernia s/p repair Discharge Disposition: Stable Plan ok to d/c to home self care diet: bland Activity: no heavy lifting, no strenuous activity until cleared by surgery medications: per med rec list F/U with surgery 10/08/18. F/U with PCP within 1-2 weeks Return to care for any concerning symptoms. CATINA MARTEL MD Oct 04, 2018 14:44
[2018-10-04] MEDS: GENASYME PO PRN (15:55)
[2018-10-04 16:14] VITALS: BP 132/76
[2018-10-04 17:00] VITALS: BP 132/76
--- NOTE | 2018-10-04 17:10 | NUR ---
d/c d/c instructions given to pt on not lifting anything more than 5 lbs till cleared by dr martins, wound care of taking drsg off in 24 hours, james drain care at home, wound supplies sent home of drain sponge, wound cleanser, and [place] tape to dress james site. advance diet as tolerated and follow up for dr martins. verbalized and written understanding obtained from pt. iv d/c'd, no s/s of infection noted to site. cotton ball and bandaid applied to site. pt off of unit via w/c to go home in private vehicle. relinquished care of pt.
== END 2018-10-04 17:25 | disposition home or self-care (01) | DRG 355 ==
LOC: SDC 06:05 → MS 15:11
PROVIDERS: ADMIT Surgery; ATTEND Surgery
PROC: 0WUF0JZ Supplement Abdominal Wall with Synthetic Substitute, Open Approach (ICD-10-PCS; principal; 2018-10-02 09:00)
DX: K43.6 Other and unspecified ventral hernia with obstruction, without gangrene (principal); E78.5 Hyperlipidemia, unspecified; K43.2 Incisional hernia without obstruction or gangrene; I10 Essential (primary) hypertension; K21.9 Gastro-esophageal reflux disease without esophagitis; Z60.2 Problems related to living alone; F41.9 Anxiety disorder, unspecified; I27.20 Pulmonary hypertension, unspecified; J44.9 Chronic obstructive pulmonary disease, unspecified; Z79.51 Long term (current) use of inhaled steroids; Z90.710 Acquired absence of both cervix and uterus; Z90.49 Acquired absence of other specified parts of digestive tract; Z87.891 Personal history of nicotine dependence; Z88.6 Allergy status to analgesic agent; Z88.0 Allergy status to penicillin; Z88.8 Allergy status to other drugs, medicaments and biological substances; Z79.899 Other long term (current) drug therapy
CPT/HCPCS: 36415; 64488; 80053; 85025; 85610; 85730; 88302; 94640; A4217; C9113; G0378; J0330; J1100; J1170; J1650; J2001; J2405; J2710; J3010; J3490; J7050; J7070; J7120; J7512; J7613; J7620; J7627; A9270; C1729; C1781; C9290; J0694; J8499

== ENCOUNTER 2018-10-08 10:25 | Observation (INO) | payer MEDICARE ==
[~2018-10-08] VITALS: Ht 170.2 cm; Wt 71.4 kg
[~2018-10-08 10:25] MED LIST changes: +CEPH250C PO; +TRAM50TA PO; -VENTOLIN IH ONE
--- NOTE | 2018-10-08 10:25 | NUR ---
ARRIVAL PATIENT TO ROOM 6, STATES THAT SHE HAD SURGERY A FEW DAYS AGO AND SHE WAS COMING TO SEE SARAH FOR HER FOLLOW UP AND WAS SO SOB SHE WAS UNABLE TO MAKE IT IN THE BUILDING. PATIENT HAS A HISTORY OF COPD, HTN, AND HAS BEEN A LONG TIME SMOKER. ASSESSMENT COMPLETED, CONNECTED TO ALL MONITORS, TOWERMAN IN PLACE, AWAITING MD ELISE.
[2018-10-08 10:46] VITALS: BP 139/84
[2018-10-08] MEDS ORDERED: SOLU-MEDROL IV STA (10:48)
[2018-10-08] MEDS ORDERED: DECADRON IH STA (10:48)
[2018-10-08] MEDS ORDERED: DUONEB 0.5 MG-3 MG/3 ML SOLN IH STA (10:48)
--- NOTE | 2018-10-08 10:55 | PCM.EKG ---
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
--- NOTE | 2018-10-08 11:03 | DIREP ---
PROCEDURE:CHEST 1 VIEW COMPARISON:[facility], CR, XRAY CHEST 2 VWS, 08/14/2018, 02:06 PM. INDICATIONS:SOB FINDINGS: LUNGS/PLEURA:Hyperinflation and chronic interstitial changes. No infiltrate or pleural effusion. CARDIAC:Borderline cardiac silhouette and normal pulmonary vascularity. Mild thoracic aortic calcification and tortuosity. MEDIASTINUM:Hiatal hernia. BONES:Normal. OTHER:No additional findings. CONCLUSION:COPD. No acute cardiopulmonary process or significant change. Dictated by: Park Osorio MD on 10/08/2018 at 11:01 AM
--- NOTE | 2018-10-08 11:04 | ER.PDOC ---
General Chief Complaint: Dyspnea/Respdistress Stated Complaint: SOB, Time seen by MD: 10:57 Source: patient Exam Limitations: no limitations History of Present Illness Initial Comments Difficulty breathing Severity: moderate Prior Episodes/Possible Cause: occasional episodes, chronic episodes Modifying Factors: improves with albuterol nebulizer Associated Symptoms: edema Prior symptoms/Treatment: Similar symptoms previous, Recenly Seen, Treated by Doctor Allergies: Coded Allergies: Penicillins (Verified Allergy, Severe, BLACKS OUT, 09/27/18) meperidine HCl (Verified Allergy, Severe, STOPS HEART, 09/27/18) codeine (Verified Allergy, Intermediate, RASH, 09/27/18) Home Meds Active Scripts Tramadol Hcl (TRAMADOL HCL) 50 Mg Tablet, 50 MG PO Q4 PRN for PAIN for 5 Days, #30 TABLET 0 Refills Prov:CATINA WHITFIELD MD 10/04/18 Cephalexin (CEPHALEXIN) 250 Mg Capsule, 250 MG PO TID for 7 Days, #21 CAPSULE 0 Refills Prov:CATINA WHITFIELD MD 10/04/18 Reported Medications Budesonide/Formoterol Fumarate (SYMBICORT 160-4.5 MCG INHALER) 10.2 Gm Hfa.aer.ad, 2 PUFF IH BID PRN for SHORTNESS OF BREATH, #10.6 GRAM 3 Refills 08/14/18 Nifedipine (NIFEDIPINE ER) 30 Mg Tablet.er, 1 TAB PO DAILY, #90 TAB 3 Refills 05/03/18 Omeprazole (OMEPRAZOLE) 40 Mg Capsule.dr, 1 CAP PO DAILY, #90 CAP 3 Refills 05/03/18 Albuterol Sulfate (ALBUTEROL SULFATE) 2.5 Mg/0.5 Ml Vial.neb, 1 VIAL NEB BID, #120 VIAL 5 Refills 0300 & 1500 09/20/16 Prednisone (PREDNISONE) 5 Mg Tablet, 5 MG PO DAILY, TABLET X7 DAYS 07/15/16 Lorazepam (LORAZEPAM) 1 Mg Tablet, 1 TAB PO DAILY PRN for ANXIETY, #90 TAB 07/15/16 Atorvastatin 20MG (LIPITOR 20MG) 20 Mg Tablet, 1 TAB PO HS, #90 TAB 1 Refill 07/15/16 Arformoterol Tartrate (BROVANA) 15 Mcg/2 Ml Vial.neb, 1 VIAL NEB BID, #320 MILLILITER 3 Refills 0300 & 1500 05/28/16 Ipratropium [place] (IPRATROPIUM BROMIDE) 0.2 Mg/1 Ml Solution, 0.2 MG IH BID 0300 & 1500 07/27/15 Albuterol Sulfate (PROAIR HFA) 8.5 Gm Hfa.aer.ad, 8.5 GM IH QID PRN for SHORTNESS OF BREATH 07/27/15 Discontinued Reported Medications Hydrochlorothiazide (HYDROCHLOROTHIAZIDE) 25 Mg Tablet, 0.5 TAB PO DAILY, #30 TAB 5 Refills 07/15/16 Past Medical History Medical History: cardiac problems, congestive heart failure, COPD, high cholesterol, hypertension Surgical History: appendectomy, hysterectomy, knee, stent, other Social History Smoking: non-smoker Alcohol Use: none Drug Use: none Review of Systems Constitutional: no symptoms reported EENTM: no symptoms reported Respiratory: see HPI Cardiovascular: no symptoms reported Gastrointestinal: no symptoms reported All Other Systems: Reviewed and Negative Physical Exam General Appearance: No Apparent Distress, WD/WN Neck: Non-Tender, Full Range of Motion, Supple, Normal Inspection Respiratory: lungs clear, decreased breath sounds Cardiovascular: Normal Peripheral Pulses, Regular Rate, Rhythm, Tachycardia Gastrointestinal: Normal Bowel Sounds, No Organomegaly, No Pulsatile Mass, Non Tender, Soft, Other (Sutures in place andominal wall hernia repair) Extremities: Pedal Edema (3-4+) 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 (10/08/18 10:48) Ekg-Routine (10/08/18 10:48) Ipratropium/Albuterol Sulfate (Duoneb 0. (10/08/18 10:48) Dexamethasone Sod Phosphate (Decadron) (10/08/18 10:48) Methylprednisolone Sod Succ (Solu-Medrol (10/08/18 10:48) Methylprednisolone Sod Succ (Solu-Medrol (10/08/18 11:13) Ipratropium/Albuterol Sulfate (Duoneb 0. (10/08/18 11:17) Dexamethasone Sod Phosphate (Decadron) (10/08/18 11:17) Cta Chest (10/08/18 12:24) Vital Signs Date Time Temp Pulse Resp B/P (MAP) Pulse Ox O2 Delivery O2 Flow Rate FiO2 10/08/18 11:35 114 18 96 10/08/18 11:20 111 18 96 10/08/18 10:46 98.3 131 20 139/84 (102) 95 Nasal Canula 2.00 98.3 10/08/18 10:43 98.6 131 18 95 Nasal Canula 98.6 10/08/18 10:43 98.3 131 20 98.3 10/04/18 17:00 94 Administered Medications Medications (Trade) Dose Ordered Sig/Mary Route PRN Reason Start Time Stop Time Status Last Admin Dose Admin Albuterol/ Ipratropium (Duoneb 0.5 Mg-3 Mg/3 ml Soln) 3 ml STAT STAT IH 10/08/18 10:48 10/08/18 10:50 DC 10/08/18 11:34 3 ML Methylprednisolone Sodium Succinate (Solu-Medrol) 125 mg STAT STAT IV 10/08/18 10:48 10/08/18 10:50 DC 10/08/18 11:18 125 MG Laboratory Tests Test 10/08/18 10:48 10/08/18 11:09 Blood Gas Sample Site RT RADIAL ARTERY Blood pH 7.461 (7.350-7.450) Blood Gas PCO2 34.9 mmHg (35.0-45.0) L Blood Gas PO2 74.5 mmHg (80.0-100.0) L Blood Gas HCO3 24.3 mmol/L (22.0-26.0) Blood Gas Base Excess 0.8 mmol/L (-2.0-2.0) Александр Test N/A Arterial Blood Oxygen Saturation 93.7 % (94.0-97.00) L Deoxyhemoglobin 6.3 % (0.0-5.0) H Carboxyhemoglobin 0.6 % (0.0-3.9) Methemoglobin 0.0 % (0.00-5.0) Total Hemoglobin 11.0 % (12.0-17.8) L Total Oxygen Concentration 14.5 % (13.5-17.5) Lactic Acid (Blood Gas) 1.3 mmol/1 (0.50-2.0) Blood Gas Temperature 37 FiO2 28 % (20-101) Bicarbonate 25.4 mmol/L (23-27) White Blood Count 9.3 10^3/uL (4.5-11.0) Red Blood Count 3.98 10^6/uL (4.00-5.20) L Hemoglobin 10.9 g/dL (12.0-15.0) L Hematocrit 34.8 % (36.0-46.0) L Mean Corpuscular Volume 87.4 fL (78-100) Mean Corpuscular Hemoglobin 27.4 pg (26-34) Mean Corpuscular Hemoglobin Concent 31.3 g/dL (33-37) L Red Cell Distribution Width 23.8 % (11.5-14.5) H Platelet Count 389 10^3/uL (150-400) Mean Platelet Volume 9.7 fL (7.8-11.0) Neutrophils (%) (Auto) 85.5 % (41.0-85.0) H Lymphocytes (%) (Auto) 6.0 % (24.0-44.0) *L Monocytes (%) (Auto) 6.0 % (5.0-12.0) Neutrophils # (Auto) 7.9 10^3/uL (1.8-7.7) H Lymphocytes # (Auto) 0.6 10^3/uL (1.0-4.8) L Monocytes # (Auto) 0.6 10^3/uL (0.3-0.8) Absolute Immature Granulocyte (auto 0.16 10^3 u/L (0-2) Immature Granulocytes % 1.70 % (0.00-0.50) H Eosinophils % 0.4 % (0.0-5.0) Basophils % 0.4 % (0.0-0.2) H Basophils # 0.0 10^3/uL (0.0-0.1) Eosinophil Count 0.0 10^3/uL (0.0-0.2) Prothrombin Time 10.3 SEC (9.8-11.9) Prothrombin Time INR (Non-Therap) 1.0 PTT 22.1 SEC (24.67-30.72) D-Dimer 0.81 mg/L (0.19-0.49) *H Sodium Level 144 mmol/L (132-145) Potassium Level 3.3 mmol/L (3.6-5.2) L Chloride Level 104.0 mmol/L (96-109) Carbon Dioxide Level 27.8 mmol/L (20.0-32) Anion Gap 15.5 Blood Urea Nitrogen 13 mg/dL (7-18) Creatinine 0.67 mg/dL (0.59-1.40) Estimated GFR () 104.4 (>/=60) BUN/Creatinine Ratio 19.0 Glucose Level 133 mg/dL (70-110) H Calcium Level 10.5 mg/dL (8.4-10.5) Total Bilirubin 0.5 mg/dL (0.2-1.0) Aspartate Amino Transferase (AST) 15 U/L (0-35) Alanine Aminotransferase (ALT) 27 U/L (12-78) Alkaline Phosphatase 92 U/L (50-136) Total Creatine Kinase 42 U/L (26-192) Troponin I < 0.02 ng/mL (0.00-0.05) Pro-B-Type Natriuretic Peptide 54 pg/mL (0-125) Total Protein 7.7 g/dL (6.4-8.2) Albumin 3.5 g/dL (3.4-5.0) Globulin 4.2 EKG/XRAY/CT/US EKG Comments: Sinus tachycardia XRAY: chest (No active disease) Departure Time of Disposition: 13:38 Disposition: 09 ADMITTED INPATIENT Impression: Primary Impression: Dyspnea Additional Impressions: COPD (chronic obstructive pulmonary disease) Leg edema Condition: Stable Referrals: ZENOBIA SALAS (PCP) PRIMARY CARE PROVIDER Comments Admitted to Dr. Whitfield Duration or Time Spent with Pa: 60 mins Problem Qualifiers Primary Impression: Dyspnea Dyspnea type: unspecified Qualified Codes: R06.00 - Dyspnea, unspecified Additional Impressions: COPD (chronic obstructive pulmonary disease) COPD type: unspecified COPD Qualified Codes: J44.9 - Chronic obstructive pulmonary disease, unspecified EVA MOSELEY MD Oct 08, 2018 11:03
[2018-10-08 11:12] LABS: ABG PCO2 34.9 mmHg (35.0-45.0); ABG PH 7.461 (7.350-7.450); BE(B) 0.8 mmol/L (-2.0-2.0); HCO3act 24.3 mmol/L (22.0-26.0); pO2 74.5 mmHg (80.0-100.0)
[2018-10-08] MEDS ORDERED: SOLU-MEDROL ONE (11:13)
[2018-10-08 11:15] LABS: BASOPHIL % 0.4 % (0.0-0.2); EOSINOPHIL % 0.4 % (0.0-5.0); HEMOGLOBIN 10.9 g/dL (12.0-15.0); LYMPHOCYTES # 0.6 10^3/uL (1.0-4.8); MEAN CELL HGB 27.4 pg (26-34); MEAN CELL HGB CONCENTRATION 31.3 g/dL (33-37); MEAN CORP VOLUME 87.4 fL (78-100); MEAN PLATELET VOLUME 9.7 fL (7.8-11.0); MONOCYTES # 0.6 10^3/uL (0.3-0.8); NEUTROPHIL # 7.9 10^3/uL (1.8-7.7); NEUTROPHILS % 85.5 % (41.0-85.0); RED CELL DISTRIBUTION WIDTH 23.8 % (11.5-14.5); WHITE BLOOD CELL 9.3 10^3/uL (4.5-11.0)
[2018-10-08] MEDS ORDERED: DECADRON ONE (11:17)
[2018-10-08] MEDS ORDERED: DUONEB 0.5 MG-3 MG/3 ML SOLN IH ONE (11:17)
--- NOTE | 2018-10-08 11:36 | NUR ---
CRITICAL LAB REPORTED ZONIA TO EDP.
[2018-10-08 11:39] LABS: ALANINE AMINOTRANSFERASE(ML) 27 U/L (12-78); ALKALINE PHOSPHATASE 92 U/L (50-136); ASPARTATE AMINO TRANSFERASE 15 U/L (0-35); CALCIUM 10.5 mg/dL (8.4-10.5); CARBON DIOXIDE 27.8 mmol/L (20.0-32); GLUCOSE 133 mg/dL (70-110)
[2018-10-08 12:00] VITALS: BP 120/70
[2018-10-08 13:00] VITALS: BP 125/75
[2018-10-08] MEDS ORDERED: LOVENOX SQ STA (13:40)
[2018-10-08] MEDS ORDERED: LASIX IV STA (13:40)
[2018-10-08 14:00] VITALS: BP 121/74
[2018-10-08 14:01] LABS: ANISOCYTOSIS 1+ (NEGATIVE); BASOPHIL 2 % (0-2); DIFFERENTIAL COMMENT NORMAL; LYMPHOCYTE 7 % (25-36); MONOCYTE 3 % (3-9); SEGMENTED NEUTROPHILS 88 % (31-76)
[2018-10-08] MEDS ORDERED: HYDR25TA9 PO (14:05)
[2018-10-08] MEDS ORDERED: METF500T17 PO (14:05)
[2018-10-08] MEDS ORDERED: ROSU20TA2 PO (14:05)
[2018-10-08] MEDS ORDERED: LUBI24CA7 PO (14:05)
[2018-10-08] MEDS ORDERED: LASIX ONE (14:06)
[2018-10-08] MEDS ORDERED: LOVENOX SQ ONE (14:07)
[2018-10-08 15:36] VITALS: BP 144/86
--- NOTE | 2018-10-08 16:11 | NUR ---
FAMILY HIST PT UNAWARE OF MEDICAL HISTORY OF FATHER, MOTHER, ECT. DUE TO THE FACT SHE IS ADOPTED.
--- NOTE | 2018-10-08 16:34 | DIREP ---
PROCEDURE:CHEST 1 VIEW COMPARISON:[facility], CR, XRAY CHEST SINGLE VW, 10/08/2018, 10:41 AM. INDICATIONS:PICC PLACEMENT FINDINGS: LUNGS/PLEURA:Again seen is hyperinflation lung wiggins consistent with COPD with mild chronic bilateral interstitial changes. VASCULATURE:Normal. Unremarkable pulmonary vasculature. CARDIAC:Normal. No cardiac silhouette abnormality or cardiomegaly. MEDIASTINUM:Moderate size hiatal hernia is again noted. BONES:Normal. No fracture or visible bony lesion. OTHER:A right PICC line has been placed with the tip overlying the superior vena cava. CONCLUSION:Interval placement of right-sided PICC line appearing in good position. No pneumothorax is seen. There are findings consistent with chronic obstructive pulmonary disease with mild bilateral chronic interstitial changes. Dictated by: Gil Valero M.D. on 10/08/2018 at 04:32 PM
--- NOTE | 2018-10-08 16:44 | NUR ---
ASSESSMENT UPON ASSESSMENT OF THE PATIENT THIS NURSE DISCOVERED PT HAS DIMINISHED LUNG SOUNDS ON THE LL AND DIMINISHED CRACKLE SOUNDS IN LLL. PT ALSO HAS BILATERAL PITTING EDEMA IN FEET, ANKLES, AND LOWER LEGS WITH +2-+3 EDEMA. PT ALSO HAS SX WOUND ON ABDOMEN FROM HERNIA RX SX 10/02/2018. WOUND IS APPROX 12 INCHES LONG FROM THE UPPER QUADRANT OF THE ABDOMEN TO THE BOTTOM QUATRANT OF THE ABDOMEN. AZAEL PRESENT WOUND CLOSURE WITH NO REDNESS NOTED. LLQ HAD MEDIPORE BANDAGE WHERE PT HAD DENNIS DRAIN OUT AT 'S OFFICE EARLIER TODAY. MINIMAL PURULENT DRAINAGE. NO SWELLING, DISCHARGE, OR ODORS NOTED. WILL CONTINUE TO MONITOR.
--- NOTE | 2018-10-08 16:51 | NUR ---
RAD PT OUT OF ROOM VIA WHEELCHAIR TO RAD FOR CT
[2018-10-08] MEDS ORDERED: POTASSIUM CHLORIDE PO STA (17:17)
--- NOTE | 2018-10-08 17:27 | DIREP ---
PROCEDURE:CT PULMONARY ANGIOGRAM TECHNIQUE:Following the intravenous administration of contrast material, axial cuts were obtained through the chest. Multiplanar / 3-D reconstructions are provided. Satisfactory pulmonary arterial contrast opacification was achieved. The images were viewed at lung and soft tissue settings. COMPARISON:[facility], CR, XRAY CHEST SINGLE VW, 10/08/2018, 02:54 PM. [facility], CR, XRAY CHEST 2 VWS, 08/14/2018, 02:06 PM. [facility], CT, CT CHEST W/O, 05/03/2018, 06:59 AM. INDICATIONS:SHORTNESS OF BREATH, ELEVATED D. DIMER FINDINGS: PULMONARY ARTERIES:Patent. LUNGS:Emphysematous changes. Linear atelectasis in the right lung base. No other significant pulmonary parenchymal abnormalities. CARDIAC:Normal size heart and normal pulmonary vascularity. THYROID:Normal. THORACIC AORTA:Wall calcifications. No aneurysm or dissection. MEDIASTINUM:Normal. No masses or enlarged nodes. PLEURA:Normal. No effusions. BONES:Degenerative changes of the thoracic spine pre. OTHER:Large hiatal hernia. CONCLUSION: 1. No evidence of pulmonary embolism or other acute abnormalities. 2. Emphysema. Linear atelectasis in the right lung base. 3. Large hiatal hernia. Dictated by: Willian Garcia M.D. on 10/08/2018 at 05:20 PM
[2018-10-08] MEDS ORDERED: DEXTROSE 50%-WATER SYRINGE IV PRN (17:30)
[2018-10-08] MEDS ORDERED: ZOFRAN IV PRN (17:30)
--- NOTE | 2018-10-08 17:52 | PCM.HP ---
History of Present Illness Reason for Visit: Dyspnea x 1 day History of Present Illness Patient is a 73 F PMH of HLD, COPD, HTN, and CAD who presents with dyspnea on exertion and increased leg swelling x 1 day. Patient was recently hospitalized last week for Ventral Hernia repair. Patient was discharged to f/u outpatient with surgery. She had f/u visit today and while walking from parking lot to office she became acutely short of breath. She required assistance to get into the clinic. RN at office removed DENNIS drain that had been kept in place following surgery and recommended patient go to the ER for further evaluation. CXR in ER negative. Patient EKG shows sinus tachycardia but no acute ischemic changes. Troponin negative x 1. Patient BP was stable. D-Dimer elevated so CTA ordered. Patient IV continued to infiltrate so she was transferred to medical floor for PICC line placement and then CTA performed which was negative for PE. Patient has increased lower extremity swelling that was improving outpatient after she restarted her diuretics. She denies chest pain and is not in respiratory distress during my evaluation. She is on baseline O2 requirement. Patient admitted 2/2 volume overload and COPD exacerbation. She dyspnea improved with IV steroids and Nebs in ER. Past Medical History Cardiac: CAD, HTN, Hyperlipidemia Pulmonary: COPD Past Surgical History: Appendectomy, Arthroscopy, Hernia Repair, Other (Ventral Hernia repair, LHC with stent x 1 per patient) Past Social History Smoke: Quit Alcohol: none Drugs: None Lives: Alone Travel Hx EBOLA RISK:Travel to/contact w: No Review of Systems Constitutional: No: Fever, Chills Eyes: No: Conjunctivae inflammation, Eyelid inflammation ENT: No: Nose discharge, Nose congestion Respiratory: Cough, Shortness of breath, SOB with excertion, Wheezing Cardiovascular: Edema; No: Chest Pain, Palpitations Gastrointestinal: No: Nausea, Vomiting, Abdominal Pain Genitourinary: No Hematuria, No Retention Musculoskeletal: No: neck pain, back pain Skin: No: Rash, Lesions, Jaundice, Bruising Neurological: No: Weakness, Numbness, Incoordination, Change in speech, Confusion, Seizures Allergies: Coded Allergies: Penicillins (Verified Allergy, Severe, BLACKS OUT, 09/27/18) meperidine HCl (Verified Allergy, Severe, STOPS HEART, 09/27/18) codeine (Verified Allergy, Intermediate, RASH, 09/27/18) Scheduled Albuterol Sulfate (Albuterol Sulfate), 1 VIAL NEB BID, (Reported) Arformoterol Tartrate (Brovana), 1 VIAL NEB BID, (Reported) Cephalexin (Cephalexin), 250 MG PO TID Hydrochlorothiazide (Hydrochlorothiazide), 25 MG PO DAILY24, (Reported) Ipratropium [place] (Ipratropium [place]), 0.2 MG IH BID, (Reported) Lubiprostone (Amitiza), 24 MCG PO BID, (Reported) Metformin Hcl (Metformin Hcl), 500 MG PO BID, (Reported) Nifedipine (Nifedipine Er), 1 TAB PO DAILY, (Reported) Omeprazole (Omeprazole), 1 CAP PO DAILY, (Reported) Prednisone (Prednisone), 5 MG PO DAILY, (Reported) Rosuvastatin 20MG (Crestor 20MG), 20 MG PO HS, (Reported) Scheduled PRN Albuterol Sulfate (Proair Hfa), 8.5 GM IH QID PRN for SHORTNESS OF BREATH, (Reported) Budesonide/Formoterol Fumarate (Symbicort 160-4.5 Mcg Inhaler), 2 PUFF IH BID PRN for SHORTNESS OF BREATH, (Reported) Lorazepam (Lorazepam), 1 TAB PO DAILY PRN for ANXIETY, (Reported) Tramadol Hcl (Tramadol Hcl), 50 MG PO Q4 PRN for PAIN Discontinued Medications Atorvastatin 20MG (Lipitor 20MG), 1 TAB PO HS, (Reported) Discontinued Reason: No Longer Taking Hydrochlorothiazide (Hydrochlorothiazide), 0.5 TAB PO DAILY, (Reported) Discontinued Reason: Discontinue VTE VTE Risk Total Score: >5 VTE Risk Score VTE Risk: Score 0-1 = Low Risk (Aggressive mobilization; early ambulation; no VTE prophylaxis required) Score 2: Moderate Risk (Intermittent/Pneumatic Compression Device OR Lovenox/Heparin/Coumadin) Score 3-4: High Risk (Intermittent/Pneumatic Compression Device AND Lovenox/Heparin/Coumadin) Score > or =5: Highest Risk (Intermittent/Pneumatic Compression Device AND Lovenox/Heparin/Coumadin) VTE VTE Present on Admission: No Currently receiving anticoagul: No VTE Risk Total Score: >5 Exam Vital Signs Vital Signs Date Time Temp Pulse Resp B/P (MAP) Pulse Ox O2 Delivery O2 Flow Rate FiO2 10/08/18 16:25 Nasal Cannula 1.50 10/08/18 15:36 98.1 116 20 144/86 (105) 97 98.1 General Appearance: Alert, Oriented X3, Cooperative, No acute distress HEENT: Atraumatic, PERRLA, EOMI, Mucous membr. moist/pink Respiratory: Other (decreased aeration, diffuse wheezing, bibasilar crackles) Cardiovascular: Normal S1, Normal S2, No murmurs, Other (tachycardia) Abdominal: Normal bowel sounds, Soft, No tenderness Extremities: Normal pulses, No tenderness/swelling, Other (pitting edema bilateral lower extremities (symmetric)) Skin: No rash, No breakdown, No lesions Neuro: Normal speech, Strength at 5/5 X4 ext, Normal tone, Sensation intact, Cranial nerves 3-12 NL, Reflexes 2+ Psych/Mental Status: Mental status NL, Mood NL Assessment/Plan Assessment/Plan Assessment/Plan Patient is a 73 F PMH of HLD, COPD, HTN, and CAD who presents with dyspnea on exertion and increased leg swelling x 1 day. Patient History: No known health problems G8 BROTHER 19 CHILD, , Age:12 19 CHILD, , Age:21 19 CHILD 19 CHILD 19 CHILD Unknown 32 MOTHER (PT ADOPTED) 33 FATHER (PT ADOPTED) No Family History of: Alzheimer's disease Asthma Cerebrovascular disorder Chronic obstructive pulmonary disease Congestive heart failure Diabetes insipidus Diabetes mellitus Hypertension Parkinson's disease Plan 1. Dyspnea: EKG negative for acute ischemic changes. CXR negative for acute pathology. CTA negative for PE. Troponin negative x 1. Symptoms likely 2/2 COPD. Will trend troponin and check Echo. Treat COPD exacerbation. 2. COPD exacerbation: cont IV steroids, Nebs, O2 support. 3. CAD: start ASA, cont Statin daily 4. HLD: cont Statin 5. Hyperglycemia: 2/2 chronic steroid use. Hold Metformin, SSI to cover. 6. Volume Overload: CXR negative but patient has bibasilar crackles and lower extremity swelling. Cont IV diuresis and we will check Echo. 7. HTN: cont Lasix, Nifedipine 8. PPx: Lovenox, PPI 9. Hiatal Hernia: f/u outpatient with surgery, cont PPI CATINA MARTEL MD Oct 08, 2018 17:52
[2018-10-08] MEDS: HUMALOG SQ SCH ×2 (18:06→22:46)
[2018-10-08] MEDS ORDERED: TRIPLE ANTIBIOTIC OINTMENT TP ONE (18:51)
[2018-10-08] MEDS: DUONEB 0.5 MG-3 MG/3 ML SOLN IH SCH (20:36)
[2018-10-08] MEDS ORDERED: CRESTOR PO SCH (21:00)
[2018-10-08] MEDS: AMITIZA PO SCH (21:00)
[2018-10-08 21:56] VITALS: BP 148/86
[2018-10-08] MEDS: SOLU-MEDROL IV SCH (22:04)
[2018-10-08] MEDS: COLACE PO SCH (22:13)
--- NOTE | 2018-10-08 22:38 | PCM.EKG ---
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
[2018-10-08] MEDS ORDERED: LIPITOR ONE (23:55)
[2018-10-09 00:52] VITALS: BP 140/82
[2018-10-09] MEDS: DUONEB 0.5 MG-3 MG/3 ML SOLN IH SCH ×2 (02:09→09:39)
[2018-10-09 06:01] VITALS: BP 118/66
[2018-10-09 06:15] LABS: BASOPHIL % 0.3 % (0.0-0.2); HEMOGLOBIN 9.6 g/dL (12.0-15.0); LYMPHOCYTES # 0.6 10^3/uL (1.0-4.8); LYMPHOCYTES % 8.5 % (24.0-44.0); MEAN CELL HGB 27.3 pg (26-34); MEAN CELL HGB CONCENTRATION 30.9 g/dL (33-37); MEAN CORP VOLUME 88.4 fL (78-100); MEAN PLATELET VOLUME 9.6 fL (7.8-11.0); MONOCYTES # 0.4 10^3/uL (0.3-0.8); MONOCYTES % 6.1 % (5.0-12.0); NEUTROPHIL # 5.7 10^3/uL (1.8-7.7); NEUTROPHILS % 82.6 % (41.0-85.0); RED CELL DISTRIBUTION WIDTH 23.7 % (11.5-14.5); WHITE BLOOD CELL 6.9 10^3/uL (4.5-11.0)
[2018-10-09] MEDS: SOLU-MEDROL IV SCH (06:20)
[2018-10-09 06:32] LABS: CALCIUM 9.7 mg/dL (8.4-10.5); CARBON DIOXIDE 28.2 mmol/L (20.0-32)
--- NOTE | 2018-10-09 06:40 | NUR ---
REPORT RECEIVED REPORT FROM COLLEGE PROFESSOR. ASSUMED CARE OF PT AT THIS TIME
[2018-10-09 07:25] VITALS: BP 141/72
[2018-10-09] MEDS: HUMALOG SQ SCH (07:30)
[2018-10-09] MEDS ORDERED: LOVENOX SQ SCH (08:00)
[2018-10-09] MEDS: COLACE PO SCH (08:08)
[2018-10-09] MEDS ORDERED: FURO-80 PO (08:25)
[2018-10-09] MEDS ORDERED: PRED10TA PO (08:25)
[2018-10-09] MEDS ORDERED: POTA20TA14 PO (08:30)
--- NOTE | 2018-10-09 08:33 | PRM.DC ---
Discharge Summary Date of Discharge: Oct 09, 2018 Time of Request to Discharge: 08:30 Reason for Visit: Dyspnea x 1 day Hospital Course Patient presented with dyspnea after going to f/u visit with surgery clinic yesterday. Patient had to walk long distance and was very winded. RN @ clinic sent patient to the ER. Patient was admitted for further evaluation 2/2 COPD and dyspnea. CTA ordered but not able to complete because IV infiltration. PICC line placed and ordered performed which was negative for PE. Patient did have volume overload but no elevation of BNP. Echo originally ordered because patient had one performed outpatient and was normal per patient. She is feeling much better after nebs and IV steroids and is agreeable to d/c to home. We will d/c with two weeks of PO lasix/Potassium and 5 day course of prednisone. Patient will return to taking her home COPD medication regimen. She will f/u with PCP/Surgery within 1 week. Patient History: No known health problems G8 BROTHER 19 CHILD, , Age:12 19 CHILD, , Age:21 19 CHILD 19 CHILD 19 CHILD Unknown 32 MOTHER (PT ADOPTED) 33 FATHER (PT ADOPTED) No Family History of: Alzheimer's disease Asthma Cerebrovascular disorder Chronic obstructive pulmonary disease Congestive heart failure Diabetes insipidus Diabetes mellitus Hypertension Parkinson's disease General: Alert, Oriented X3, Cooperative, No acute distress HEENT: Atraumatic, PERRLA, EOMI Neck: Supple, No JVD Lungs: Clear to auscultation, Normal air movement Heart: Regular rate, Normal S1, Normal S2, No murmurs Abdomen: Normal bowel sounds, Soft, No tenderness Extremities: No clubbing, No cyanosis, Normal pulses Skin: No rashes, No breakdown, No significant lesion Neuro: Normal gait, Normal speech, Strength at 5/5 X4 ext, Normal tone, Sensation intact, Cranial nerves 3-12 NL Psych/Mental Status: Mental status NL, Mood NL Scheduled Albuterol Sulfate (Albuterol Sulfate), 1 VIAL NEB BID, (Reported) Arformoterol Tartrate (Brovana), 1 VIAL NEB BID, (Reported) Cephalexin (Cephalexin), 250 MG PO TID Furosemide (Lasix), 1 TAB PO DAILY Hydrochlorothiazide (Hydrochlorothiazide), 25 MG PO DAILY24, (Reported) Ipratropium [place] (Ipratropium [place]), 0.2 MG IH BID, (Reported) Lubiprostone (Amitiza), 24 MCG PO BID, (Reported) Metformin Hcl (Metformin Hcl), 500 MG PO BID, (Reported) Nifedipine (Nifedipine Er), 1 TAB PO DAILY, (Reported) Omeprazole (Omeprazole), 1 CAP PO DAILY, (Reported) Potassium Chloride (Potassium Chloride), 20 MEQ PO DAILY24 Prednisone (Prednisone), 5 MG PO DAILY, (Reported) Prednisone (Prednisone), 10 MG PO BID Rosuvastatin 20MG (Crestor 20MG), 20 MG PO HS, (Reported) Scheduled PRN Albuterol Sulfate (Proair Hfa), 8.5 GM IH QID PRN for SHORTNESS OF BREATH, (Reported) Budesonide/Formoterol Fumarate (Symbicort 160-4.5 Mcg Inhaler), 2 PUFF IH BID PRN for SHORTNESS OF BREATH, (Reported) Lorazepam (Lorazepam), 1 TAB PO DAILY PRN for ANXIETY, (Reported) Tramadol Hcl (Tramadol Hcl), 50 MG PO Q4 PRN for PAIN Discontinued Medications Atorvastatin 20MG (Lipitor 20MG), 1 TAB PO HS, (Reported) Discontinued Reason: No Longer Taking Hydrochlorothiazide (Hydrochlorothiazide), 0.5 TAB PO DAILY, (Reported) Discontinued Reason: Discontinue Sepsis Evaluation @ Discharge 10/09/18 05:00 Course Sepsis Screening Results: Posi: NEGATIVE Sepsis Qualifier/Stage: NO DEFINITE RISK Duration or Total Time Spent w: 60 mins Vitals & review Data Vital Sign - Last 24 Hours 10/08/18 10/08/18 10/08/18 10/08/18 10:43 10:43 10:46 11:20 Temp 98.3 98.6 98.3 98.3 98.6 98.3 Pulse 131 131 131 111 Resp 20 18 20 18 B/P (MAP) 139/84 (102) Pulse Ox 95 95 96 O2 Delivery Nasal Canula Nasal Canula O2 Flow Rate 2.00 10/08/18 10/08/18 10/08/18 10/08/18 11:35 12:00 13:00 14:00 Pulse 114 114 112 111 Resp 18 20 20 20 B/P (MAP) 120/70 (87) 125/75 (92) 121/74 (90) Pulse Ox 96 94 93 92 O2 Delivery Nasal Canula Nasal Canula Nasal Canula O2 Flow Rate 2.00 2.00 2.00 10/08/18 10/08/18 10/08/18 10/08/18 14:22 14:26 15:36 16:25 Temp 98.3 98.1 98.1 Pulse 111 116 Resp 20 20 B/P (MAP) 136/78 144/86 (105) Pulse Ox 92 97 O2 Delivery Room Air Nasal Canula Nasal Cannula O2 Flow Rate 1.50 1.50 10/08/18 10/08/18 10/08/18 10/08/18 18:20 20:34 20:35 20:35 Pulse 93 93 Resp 20 20 20 Pulse Ox 96 97 96 O2 Delivery Nasal Cannula Nasal Cannula O2 Flow Rate 2.00 2.00 10/08/18 10/08/18 10/09/18 10/09/18 20:38 21:56 00:52 01:46 Temp 98.2 98.2 98.2 98.2 Pulse 93 110 108 Resp 20 20 18 B/P (MAP) 148/86 (106) 140/82 (101) Pulse Ox 96 97 97 O2 Delivery Nasal Canula Nasal Canula Nasal Cannula O2 Flow Rate 2.00 2.00 2.00 10/09/18 10/09/18 10/09/18 10/09/18 02:10 02:13 06:01 07:25 Temp 97.9 97.8 97.9 97.8 Pulse 108 108 82 94 Resp 18 18 18 17 B/P (MAP) 118/66 (83) 141/72 (95) Pulse Ox 97 97 97 97 O2 Delivery Nasal Canula Nasal [place]ula O2 Flow Rate 2.00 2.00 10/09/18 08:08 B/P (MAP) 141/72 Intake and Output 10/08/18 10/08/18 10/09/18 15:00 23:00 07:00 Intake Total 244 ml 240 ml Output Total 1 ml 500 ml Balance 243 ml -260 ml Laboratory Tests Test 10/08/18 10:48 10/08/18 11:09 10/08/18 11:16 10/08/18 18:00 Blood Gas Sample Site RT RADIAL ARTERY Blood Gas pH 7.461 Blood Gas PCO2 34.9 mmHg Blood Gas PO2 74.5 mmHg Blood Gas HCO3 24.3 mmol/L Blood Gas Base Excess 0.8 mmol/L Александр Test N/A Arterial Blood Oxygen Saturation 93.7 % Deoxyhemoglobin 6.3 % Carboxyhemoglobin 0.6 % Methemoglobin 0.0 % Total Hemoglobin 11.0 % Total Oxygen Concentration 14.5 % Lactic Acid (Blood Gas) 1.3 mmol/1 Blood Gas Temperature 37 FiO2 28 % Bicarbonate 25.4 mmol/L White Blood Count 9.3 10^3/uL Red Blood Count 3.98 10^6/uL Hemoglobin 10.9 g/dL Hematocrit 34.8 % Mean Corpuscular Volume 87.4 fL Mean Corpuscular Hemoglobin 27.4 pg Mean Corpuscular Hemoglobin Concent 31.3 g/dL Red Cell Distribution Width 23.8 % Platelet Count 389 10^3/uL Mean Platelet Volume 9.7 fL Neutrophils (%) (Auto) 85.5 % Lymphocytes (%) (Auto) 6.0 % Monocytes (%) (Auto) 6.0 % Neutrophils # (Auto) 7.9 10^3/uL Lymphocytes # (Auto) 0.6 10^3/uL Monocytes # (Auto) 0.6 10^3/uL Absolute Immature Granulocyte (auto 0.16 10^3 u/L Immature Granulocytes % 1.70 % Eosinophils % 0.4 % Basophils % 0.4 % Basophils # 0.0 10^3/uL Eosinophil Count 0.0 10^3/uL Prothrombin Time 10.3 SEC Prothrombin Time INR (Non-Therap) 1.0 Activated Partial Thromboplast Time 22.1 SEC D-Dimer 0.81 mg/L Sodium Level 144 mmol/L Potassium Level 3.3 mmol/L Chloride Level 104.0 mmol/L Carbon Dioxide Level 27.8 mmol/L Anion Gap 15.5 Blood Urea Nitrogen 13 mg/dL Creatinine 0.67 mg/dL Estimated GFR () 104.4 BUN/Creatinine Ratio 19.0 Glucose Level 133 mg/dL Calcium Level 10.5 mg/dL Total Bilirubin 0.5 mg/dL Aspartate Amino Transf (AST/SGOT) 15 U/L Alanine Aminotransferase (ALT/SGPT) 27 U/L Alkaline Phosphatase 92 U/L Total Creatine Kinase 42 U/L Troponin I < 0.02 ng/mL Pro-B-Type Natriuretic Peptide 54 pg/mL Total Protein 7.7 g/dL Albumin 3.5 g/dL Globulin 4.2 Differential Total Cells Counted 100 #CELLS Segmented Neutrophils 88 % Lymphocytes 7 % Monocytes 3 % Basophils 2 % Differential Comment NORMAL Platelet Estimate ADEQUATE Platelet Morphology NORMAL Anisocytosis 1+ Blood Morphology Comment NORMAL MORPHOLOGY Bedside Glucose 215 Test 10/08/18 18:15 10/08/18 22:39 10/09/18 00:05 10/09/18 06:08 Troponin I < 0.02 ng/mL < 0.02 ng/mL < 0.02 ng/mL Bedside Glucose 168 White Blood Count 6.9 10^3/uL Red Blood Count 3.52 10^6/uL Hemoglobin 9.6 g/dL Hematocrit 31.1 % Mean Corpuscular Volume 88.4 fL Mean Corpuscular Hemoglobin 27.3 pg Mean Corpuscular Hemoglobin Concent 30.9 g/dL Red Cell Distribution Width 23.7 % Platelet Count 349 10^3/uL Mean Platelet Volume 9.6 fL Neutrophils (%) (Auto) 82.6 % Lymphocytes (%) (Auto) 8.5 % Monocytes (%) (Auto) 6.1 % Neutrophils # (Auto) 5.7 10^3/uL Lymphocytes # (Auto) 0.6 10^3/uL Monocytes # (Auto) 0.4 10^3/uL Absolute Immature Granulocyte (auto 0.17 10^3 u/L Immature Granulocytes % 2.50 % Eosinophils % 0.0 % Basophils % 0.3 % Basophils # 0.0 10^3/uL Eosinophil Count 0.0 10^3/uL Sodium Level 145 mmol/L Potassium Level 3.7 mmol/L Chloride Level 108.0 mmol/L Carbon Dioxide Level 28.2 mmol/L Anion Gap 12.5 Blood Urea Nitrogen 20 mg/dL Creatinine 0.69 mg/dL Estimated GFR () 100.9 BUN/Creatinine Ratio 28.0 Glucose Level 147 mg/dL Hemoglobin A1c 6.5 % Calcium Level 9.7 mg/dL Total Bilirubin 0.3 mg/dL Aspartate Amino Transf (AST/SGOT) 11 U/L Alanine Aminotransferase (ALT/SGPT) 22 U/L Alkaline Phosphatase 79 U/L Total Protein 6.4 g/dL Albumin 2.9 g/dL Globulin 3.5 Current Medications Medications (Trade) Dose Ordered Sig/Mary PRN Reason Start Time Stop Time Status Last Admin Albuterol/ Ipratropium (Duoneb 0.5 Mg-3 Mg/3 ml Soln) 3 ml RTQ6H 6/10/19 19:30 11/07/18 19:29 10/09/18 02:09 Arformoterol Tartrate (Brovana) 15 mcg RTBID 10/09/18 09:00 11/08/18 08:59 Aspirin (Aspirin Ec) 81 mg DAILY 10/09/18 09:00 11/08/18 08:59 10/09/18 08:08 Atorvastatin Calcium (Lipitor) 40 mg HS 10/09/18 00:00 11/08/18 00:00 10/08/18 23:59 Budesonide (Pulmicort) 0.5 mg RTBID 10/09/18 09:00 11/08/18 08:59 Dextrose (Dextrose 50%-Water Syringe) 25 ml STAT PRN HYPOGLYCEMIA 10/08/18 17:30 11/07/18 17:29 Docusate Sodium (Colace) 100 mg BID 10/08/18 22:30 11/07/18 22:29 10/09/18 08:08 Enoxaparin Sodium (Lovenox) 40 mg Q24HRS 10/09/18 08:00 11/08/18 07:59 10/09/18 08:08 Furosemide (Lasix) 40 mg DAILY 10/09/18 09:00 11/08/18 08:59 10/09/18 08:08 Insulin Human Lispro (Humalog) Humalog. Give when food is... ACHS 10/08/18 17:30 11/07/18 17:29 10/08/18 22:46 Lubiprostone (Amitiza) 24 mcg BID 10/08/18 21:00 11/07/18 20:59 Methylprednisolone Sodium Succinate (Solu-Medrol) 40 mg Q8HR 10/08/18 22:00 11/07/18 21:59 10/09/18 06:20 Nifedipine (Procardia) 30 mg DAILY 10/09/18 09:00 11/08/18 08:59 10/09/18 08:08 Ondansetron HCl (Zofran) 4 mg Q4H PRN NAUSEA / VOMITING 10/08/18 17:30 11/07/18 17:29 Pantoprazole Sodium (Protonix) 40 mg DAILY 10/09/18 09:00 11/08/18 08:59 10/09/18 08:08 Sepsis Infection Criteria Pres: None LEVEL 1 SEPSIS INFECTION CRITE: None/Not assessed LEVEL 2-SIRS (LIST ALL THAT AP: None/Not assessed Cardiovascular Evidence: Not Assessed or None Hematologic Evidence: None/Not assessed Hepatic Evidence: None/Not assessed Metabolic Evidence: NewSerumGluc>140abs diab Neurological Evidence: None/Not assessed Respiratory Evidence: Need for O2 to keep>90% Renal Evidence: None/Not assessed O2 Sat by Pulse Oximetry: 97 Oxygen Flow Rate: 2.00 Plan Discharge Date: Oct 09, 2018 Dicharge DX: Dyspnea, COPD exacerbation, volume overload Discharge Disposition: Stable Plan ok to d/c to home self care medications: per med rec list Diet: low salt Activity: as tolerated Return to care for worsening/concerning symptoms F/U with PCP/Surgery within 1 week CATINA MARTEL MD Oct 09, 2018 08:32
[2018-10-09] MEDS ORDERED: BROVANA IH SCH (09:00)
[2018-10-09] MEDS ORDERED: LASIX IV SCH (09:00)
[2018-10-09] MEDS ORDERED: PROTONIX PO SCH (09:00)
[2018-10-09] MEDS ORDERED: ASPIRIN EC PO SCH (09:00)
[2018-10-09] MEDS ORDERED: PULMICORT IH SCH (09:00)
[2018-10-09] MEDS ORDERED: PROCARDIA PO SCH (09:00)
[2018-10-09] MEDS: AMITIZA PO SCH (09:00)
--- NOTE | 2018-10-09 09:27 | PCM.EKG ---
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
[2018-10-09 10:15] VITALS: BP 141/72
--- NOTE | 2018-10-09 10:20 | NUR ---
DISCHARGE PLAN: CASE MANAGEMENT VISITED WITH PATIENT CONCERNING DISCHARGE PLAN AND NEEDS. LIVES AT HOME WITH . INDEPENDENT OF ADLS. HAS DME INCLUDING WALKER, CANE, AND SHOWER CHAIR. CURRENTLY HAS HOME OXYGEN. CM EDUCATED PATIENT ON OUTPATIENT AND HOME HEALTH SERVICES. CHOICE LETTER PRESENTED, SIGNED AND PLACED IN CHART. PCP DR SALAS. HAS FINANCIAL ABILITY TO PAY FOR MEDICATIONS UPON DISCHARGE IF NEEDED. DISCHARGE GOAL IS TO DISCHARGE HOME WITH AND HOME HEALTH TO FOLLOW. CM WILL CONTINUE TO FOLLOW FOR DISCHARGE NEEDS. Addendum: 10/09/18 at 1329 by Roslyn Fox RN -[facility] PATIENT CHOSE [facility] FOR HOME HEALTH. NOTIFIED ILEANA ROD VIA PHONE CALL OF REQUEST.
[2018-10-09] MEDS ORDERED: LIPITOR PO SCH ×2 (21:00)
== END 2018-10-09 11:30 | disposition home or self-care (01) ==
LOC: ER 10:25 → UNDOADMOB 14:06 → MS 14:06 → OBSVTOIN 17:17 → INTOOBSV 17:17 → EDPENDDISTM 10-09 10:15 → EDPENDDISDT 10-09 14:25
PROVIDERS: ADMIT Family Medicine; ATTEND Family Medicine
DX: J44.1 Chronic obstructive pulmonary disease with (acute) exacerbation (principal); I25.10 Atherosclerotic heart disease of native coronary artery without angina pectoris; E78.5 Hyperlipidemia, unspecified; E87.70 Fluid overload, unspecified; E11.65 Type 2 diabetes mellitus with hyperglycemia; E78.00 Pure hypercholesterolemia, unspecified; Z90.710 Acquired absence of both cervix and uterus; Z87.891 Personal history of nicotine dependence; Z95.5 Presence of coronary angioplasty implant and graft; Z88.0 Allergy status to penicillin; Z88.8 Allergy status to other drugs, medicaments and biological substances; Z79.899 Other long term (current) drug therapy; I11.0 Hypertensive heart disease with heart failure; I50.9 Heart failure, unspecified
CPT/HCPCS: 36415 ×2; 36569; 36600; 71045 ×2; 71275; 80053 ×2; 82550; 82803; 82948 ×3; 83036; 83880; 84484 ×4; 85025 ×2; 85379; 85610; 85730; 87040 ×2; 93005 ×3; 94640 ×4; 96372 ×2; 96374; 96375; 96376 ×2; 99284; G0378 ×20; J1100; J1650 ×2; J1815; J1940 ×2; J2930 ×3; J7605; J7620 ×4; J7627; Q9965

== ENCOUNTER 2018-10-30 04:30 | Observation (INO) | payer MEDICARE ==
[2018-10-30] VITALS (9 sets, daily range): BP systolic 108–137; BP diastolic 69–82
[~2018-10-30] VITALS: Ht 172.7 cm; Wt 70.3 kg
[~2018-10-30 04:30] MED LIST changes: +FURO-80 PO; +LUBI24CA7 PO; +METF500T17 PO; +POTA20TA14 PO; +ROSU20TA2 PO
--- NOTE | 2018-10-30 04:58 | ER.PDOC ---
General Chief Complaint: General Complaint Stated Complaint: WEAKNESS Time seen by MD: 04:40 Source: patient, EMS Exam Limitations: no limitations History of Present Illness Initial Comments 73 YO FEMALE BROUGHT IN BY EMS FOR GENERALIIZED WEAKNESS, VOMITING AND DIARRHEA X 2 DAYS. SHE HAS HAD SEVERAL WATERY STOOLS AND VOMITED MANY TIMES. NO FEVER OR CHILLS.. SHE STATES SHE FEELS WEAK. NO CHEST PAIN OR SHORTNESS OF BREATH. SHE HAD REVISION OF ABDOMINAL HERNIA DONE OVER 4 WKS AGO. NO ABDOMINAL PAIN. SHE DENIES DYSURIA. SHE TRIED OTC NAUSEA MEDICINE WITHOUT RELIEF. PATIENT HAS COPD AND ON OXYGEN 2L/MIN CONTINUOUS. Severity/Quality: moderate Associated Symptoms (vomiting): freq vomitng Associated Symptoms (diarrhea): watery Allergies: Coded Allergies: Penicillins (Verified Allergy, Severe, BLACKS OUT, 09/27/18) meperidine HCl (Verified Allergy, Severe, STOPS HEART, 09/27/18) codeine (Verified Allergy, Intermediate, RASH, 09/27/18) Home Meds Active Scripts Potassium Chloride (POTASSIUM CHLORIDE) 20 Meq Tab.er.prt, 20 MEQ PO DAILY24 for 14 Days, #14 TAB 0 Refills Prov:CATINA MARTEL MD 10/09/18 Furosemide (LASIX) 40 Mg Tablet, 1 TAB PO DAILY for 14 Days, #14 TAB 0 Refills Prov:CATINA MARTEL MD 10/09/18 Prednisone (PREDNISONE) 10 Mg Tablet, 10 MG PO BID for 5 Days, #5 TABLET 0 Refills Prov:CATINA MARTEL MD 10/09/18 Reported Medications Rosuvastatin 20MG (CRESTOR 20MG) 20 Mg Tablet, 20 MG PO HS, TAB 10/08/18 Lubiprostone (AMITIZA) 24 Mcg Capsule, 24 MCG PO BID, CAPSULE 10/08/18 Metformin Hcl (METFORMIN HCL) 500 Mg Tablet, 500 MG PO BID, TABLET 10/08/18 Budesonide/Formoterol Fumarate (SYMBICORT 160-4.5 MCG INHALER) 10.2 Gm Hfa.aer.ad, 2 PUFF IH BID PRN for SHORTNESS OF BREATH, #10.6 GRAM 3 Refills 08/14/18 Nifedipine (NIFEDIPINE ER) 30 Mg Tablet.er, 1 TAB PO DAILY, #90 TAB 3 Refills 05/03/18 Omeprazole (OMEPRAZOLE) 40 Mg Capsule.dr, 1 CAP PO DAILY, #90 CAP 3 Refills 05/03/18 Albuterol Sulfate (ALBUTEROL SULFATE) 2.5 Mg/0.5 Ml Vial.neb, 1 VIAL NEB BID, #120 VIAL 5 Refills 0300 & 1500 09/20/16 Arformoterol Tartrate (BROVANA) 15 Mcg/2 Ml Vial.neb, 1 VIAL NEB BID, #320 MILLILITER 3 Refills 0300 & 1500 05/28/16 Ipratropium Cerrillos (IPRATROPIUM BROMIDE) 0.2 Mg/1 Ml Solution, 0.2 MG IH BID 0300 & 1500 07/27/15 Albuterol Sulfate (PROAIR HFA) 8.5 Gm Hfa.aer.ad, 8.5 GM IH QID PRN for SHORTNESS OF BREATH 07/27/15 Vital Signs First Vital Signs Date Time Temp Pulse Resp B/P (MAP) Pulse Ox O2 Delivery O2 Flow Rate FiO2 10/09/18 10:15 97 10/30/18 04:32 98.1 20 98.1 10/30/18 04:32 129/82 (98) 96 Nasal Canula 2.00 Last Vital Signs Date Time Temp Pulse Resp B/P (MAP) Pulse Ox O2 Delivery O2 Flow Rate FiO2 10/30/18 06:08 108 18 116/75 (89) 97 Nasal Canula 2.00 10/30/18 04:32 98.1 98.1 Past Medical History Medical History: congestive heart failure, COPD, high cholesterol, hypertension Surgical History: cardiac cath, appendectomy, hysterectomy, other LMP (females 10-50): hysterectomy Family History Significant Family History: no pertinent family hx Social History Smoking: non-smoker, quit greater than 1 year Alcohol Use: none Drug Use: none Constitutional: denies chills, denies fever; weakness EENTM: see HPI Respiratory: denies cough, denies shortness of breath Cardiovascular: denies chest pain; edema; denies irregular heart rate; lightheadedness Gastrointestinal: denies abdominal pain; diarrhea, nausea, vomiting Genitourinary: denies burning, denies dysuria Musculoskeletal: denies back pain Skin: denies change in color Psychiatric/Neurological: denies anxiety; weakness, other (FEELS DIZZY SOMETIMES) Endocrine: denies excessive sweating Hematologic/Lymphatic: no symptoms reported Physical Exam General Appearance: No Apparent Distress HEENT: PERRL/EOMI, Normal ENT Inspection, Pharynx Normal, Other (DRY ORAL MUCOSA) Neck: Supple Respiratory: chest non-tender, lungs clear, decreased breath sounds Cardiovascular: Normal Peripheral Pulses, Tachycardia Gastrointestinal: Normal Bowel Sounds, No Organomegaly, Non Tender, Soft, Other (HEALED SURGICAL INCISION) Back: No CVA Tenderness Extremities: No Calf Tenderness, Pedal Edema Neurologic/Psychiatric: No Motor/Sensory Deficits, Alert, Oriented x 3 Skin: Normal Color Results/Orders Results/Orders Orders - KATHY GARSIA MD Cbc With Auto Diff (10/30/18 05:02) Comprehensive Metabolic Panel (10/30/18 05:02) Amylase (10/30/18 05:02) Lipase (10/30/18 05:02) Urinalysis (10/30/18 05:02) Ondansetron Hcl (Zofran) (10/30/18 05:05) 0.9 % Sodium Chloride (Ns 1000ml) (10/30/18 05:06) 0.9 % Sodium Chloride (Ns 1000ml) (10/30/18 05:06) 0.9 % Sodium Chloride (Ns 1000ml) (10/30/18 05:14) Ondansetron Hcl (Zofran) (10/30/18 05:14) Ekg-Routine (10/30/18 05:19) Creatine Kinase (10/30/18 05:29) Troponin I (10/30/18 05:29) Probnp B-Type [employer] Department Head (10/30/18 05:29) PT (10/30/18 05:29) Partial Thromboplastin Time. (10/30/18 05:29) Xr Chest 1v (10/30/18 05:29) Potassium Chloride (Klor-Con 10) (10/30/18 05:34) Potassium Chloride (Potassium Chloride) (10/30/18 05:36) Potassium Chloride (Potassium Chloride) (10/30/18 05:35) Vital Signs Date Time Temp Pulse Resp B/P (MAP) Pulse Ox O2 Delivery O2 Flow Rate FiO2 10/30/18 06:08 108 18 116/75 (89) 97 Nasal Canula 2.00 10/30/18 05:22 114 20 129/78 (95) 94 Nasal Canula 2.00 10/30/18 04:32 98.1 123 18 97 Nasal Canula 98.1 10/30/18 04:32 98.1 123 20 129/82 (98) 96 Nasal Canula 2.00 98.1 10/30/18 04:32 98.1 125 20 98.1 10/09/18 10:15 97 Administered Medications Medications (Trade) Dose Ordered Sig/Mary Route PRN Reason Start Time Stop Time Status Last Admin Dose Admin Ondansetron HCl (Zofran) 4 mg STAT STAT IV 10/30/18 05:05 10/30/18 05:06 DC 10/30/18 05:17 4 MG Potassium Chloride (Potassium Chloride) 40 meq STAT STAT PO 10/30/18 05:35 10/30/18 05:40 DC 10/30/18 05:52 40 MEQ Sodium Chloride 1,000 ml @ 0 mls/hr Q0M STAT IV 10/30/18 05:06 10/30/18 05:08 DC 10/30/18 05:17 1,000 MLS/HR Laboratory Tests Test 10/30/18 05:08 10/30/18 05:15 10/30/18 05:23 Urine Collection Type VOID Urine Color YELLOW (YELLOW) Urine Appearance CLEAR (CLEAR) Urine Bilirubin NEGATIVE MG/DL (NEGATIVE) Urine Ketones NEGATIVE (NEGATIVE) Urine Specific [place] 1.010 (1.005-1.035) Urine pH 6 (5.0-6.0) Urine Protein NEGATIVE (NEGATIVE) Urine Urobilinogen NORMAL (NEGATIVE) Urine Nitrate NEGATIVE (NEGATIVE) Urine Leukocyte Esterase NEGATIVE (NEGATIVE) Urine Blood 10 TR (NEGATIVE) H Urine RBC 0-2 RBC/HPF (NONE SEEN) Urine WBC 2-5 WBC/HPF (0-2) Urine Squamous Epithelial Cells FEW #/HPF (FEW) Urine Bacteria NONE SEEN (NONE SEEN) Urine Hyaline Casts 2-5 (NONE SEEN) Urine Fine Granular Casts 0-1 Urine Other 2+ MUCUS #/HPF Urine Glucose NORMAL (NEGATIVE) White Blood Count 11.9 10^3/uL (4.5-11.0) H Red Blood Count 4.62 10^6/uL (4.00-5.20) Hemoglobin 13.0 g/dL (12.0-15.0) # Hematocrit 40.7 % (36.0-46.0) Mean Corpuscular Volume 88.1 fL (78-100) Mean Corpuscular Hemoglobin 28.1 pg (26-34) Mean Corpuscular Hemoglobin Concent 31.9 g/dL (33-37) L Red Cell Distribution Width 21.0 % (11.5-14.5) H Platelet Count 376 10^3/uL (150-400) Mean Platelet Volume 10.0 fL (7.8-11.0) Neutrophils (%) (Auto) 47.6 % (41.0-85.0) Lymphocytes (%) (Auto) 25.9 % (24.0-44.0) Monocytes (%) (Auto) 12.9 % (5.0-12.0) H Neutrophils # (Auto) 5.7 10^3/uL (1.8-7.7) Lymphocytes # (Auto) 3.1 10^3/uL (1.0-4.8) Monocytes # (Auto) 1.5 10^3/uL (0.3-0.8) H Absolute Immature Granulocyte (auto 0.03 10^3 u/L (0-2) Immature Granulocytes % 0.30 % (0.00-0.50) Eosinophils % 12.5 % (0.0-5.0) H Basophils % 0.8 % (0.0-0.2) H Basophils # 0.1 10^3/uL (0.0-0.1) Eosinophil Count 1.5 10^3/uL (0.0-0.2) H Prothrombin Time 10.2 SEC (9.8-11.9) Prothrombin Time INR (Non-Therap) 1.0 PTT 22.5 SEC (24.67-30.72) Sodium Level 143 mmol/L (132-145) Potassium Level 2.3 mmol/L (3.6-5.2) *L Chloride Level 102.0 mmol/L (96-109) Carbon Dioxide Level 29.3 mmol/L (20.0-32) Anion Gap 14.0 Blood Urea Nitrogen 12 mg/dL (7-18) Creatinine 1.31 mg/dL (0.59-1.40) Estimated GFR () 48.2 (>/=60) BUN/Creatinine Ratio 9.0 Glucose Level 107 mg/dL (70-110) Calcium Level 10.5 mg/dL (8.4-10.5) Magnesium Level 1.6 mg/dL (1.8-2.4) L Total Bilirubin 0.4 mg/dL (0.2-1.0) Aspartate Amino Transferase (AST) 17 U/L (0-35) Alanine Aminotransferase (ALT) 18 U/L (12-78) Alkaline Phosphatase 95 U/L (50-136) Total Creatine Kinase 51 U/L (26-192) Troponin I < 0.02 ng/mL (0.00-0.05) Pro-B-Type Natriuretic Peptide 76 pg/mL (0-125) Total Protein 7.5 g/dL (6.4-8.2) Albumin 3.8 g/dL (3.4-5.0) Globulin 3.7 Amylase Level 31 U/L (25-115) Lipase 151 U/L (114-286) Differential Total Cells Counted 100 #CELLS Segmented Neutrophils 42 % (31-76) Lymphocytes 31 % (25-36) Monocytes 11 % (3-9) H Absolute Eosinophils (Manual) 15 % (1-4) H Basophils 1 % (0-2) Nucleated Red Blood Cells 1 % (0-0) H Platelet Estimate ADEQUATE Platelet Morphology NORMAL Blood Morphology Comment NORMAL MORPHOLOGY Progress Progress CARDIAC ENZYMES, BNP UNREMARKABLE.. ABNORMAL POTASSIUM 2.3. URINALYSIS NO UTI. I DISCUSSED WITH PATIENT HER ABNORMAL LABS AND NEED FOR POTASSIUM REPLACEMENT. PATIENT AGRRES TO THE PLAN. SHE IS NOT COMPLAINING OF CHEST PAIN. BNP IS UNREMARKABLE. EKG/XRAY/CT/US EKG: nonspecific ST T wave chg (SINUS TACHYCARDIA 117 BEATS/ MIN) Consult/PCP Time Consult/PCP Called: 06:20 Consult/PCP: DR. BLAIR Reason/Comments: ACCEPTED IN PATIENT CARE FOR THE PATIENT. Departure Time of Disposition: 06:21 Disposition: 09 ADMITTED INPATIENT Impression: Primary Impression: Gastroenteritis Additional Impressions: Weakness generalized Hypokalemia due to loss of potassium Condition: Stable Referrals: ZENOBIA SALAS (PCP) PRIMARY CARE PROVIDER Duration or Time Spent with Pa: 60 MIN Problem Qualifiers KATHY GARSIA MD Oct 30, 2018 04:58
[2018-10-30] MEDS ORDERED: ZOFRAN IV STA (05:05)
[2018-10-30] MEDS ORDERED: NS 1000ML 1,000 ML IV STA ×2 (05:06)
[2018-10-30] MEDS ORDERED: NS 1000ML 1,000 ML ONE (05:14)
[2018-10-30] MEDS ORDERED: ZOFRAN ONE (05:14)
[2018-10-30 05:18] LABS: BASOPHIL # 0.1 10^3/uL (0.0-0.1); BASOPHIL % 0.8 % (0.0-0.2); EOSINOPHIL # 1.5 10^3/uL (0.0-0.2); EOSINOPHIL % 12.5 % (0.0-5.0); LYMPHOCYTES # 3.1 10^3/uL (1.0-4.8); LYMPHOCYTES % 25.9 % (24.0-44.0); MEAN CELL HGB 28.1 pg (26-34); MEAN CELL HGB CONCENTRATION 31.9 g/dL (33-37); MEAN CORP VOLUME 88.1 fL (78-100); MONOCYTES # 1.5 10^3/uL (0.3-0.8); MONOCYTES % 12.9 % (5.0-12.0); NEUTROPHIL # 5.7 10^3/uL (1.8-7.7); NEUTROPHILS % 47.6 % (41.0-85.0); WHITE BLOOD CELL 11.9 10^3/uL (4.5-11.0)
[2018-10-30 05:19] LABS: BILIRUBIN,URINE NEGATIVE (NEGATIVE); UROBILINOGEN,URINE NORMAL (NEGATIVE)
--- NOTE | 2018-10-30 05:27 | PCM.EKG ---
[facility] Test Date: 2018-10-30 Test Time: 05:26:32 Pat Name: SUN ELLIS Department: Patient ID: [id number] Room: 312 Gender: F [employer] Att[employer]: : 1945 Requested By: NICK GARSIA Order Number: [id number] Reading MD: Nick Garsia Measurements Intervals [place] Rate: 117 P: 62 [place]: 154 QRS: -55 QRSD: 94 T: 54 QT: 346 QTc: 482 Interpretive Statements Sinus tachycardia Left anterior fascicular block Inferior infarct, age undetermined Anterolateral infarct, age undetermined Abnormal ECG Compared to ECG 10/09/2018 09:24:18 Left anterior fascicular block now present Myocardial infarct finding now present Sinus rhythm no longer present non specific ST/ T wave abnormality. no significant Q wave present. Electronically Signed On 10-30-2018 6:50:15 CDT by Nick Garsia Please click the below link to view image of tracing.
[2018-10-30 05:32] LABS: APPEARANCE,URINE CLEAR (CLEAR); UA COLOR YELLOW (YELLOW)
[2018-10-30 05:33] LABS: CALCIUM 10.5 mg/dL (8.4-10.5); CARBON DIOXIDE 29.3 mmol/L (20.0-32)
[2018-10-30] MEDS ORDERED: KLOR-CON 10 PO ONE (05:34)
[2018-10-30] MEDS ORDERED: POTASSIUM CHLORIDE PO STA (05:35)
[2018-10-30] MEDS ORDERED: POTASSIUM CHLORIDE ONE (05:36)
--- NOTE | 2018-10-30 05:45 | NUR ---
LAB RECEIVED CALL FROM LAB WITH POTASSIUM OF 2.3 NOTIFIED EDP. NEW ORDERS RECEIVED.
--- NOTE | 2018-10-30 05:53 | NUR ---
IV STARTED 20G IV IN RT AC X1 ATTEMPT. FLUSHED WITHOUT COMPLICATION. SECURED WITH TAPE AND TEGADERM. IV NS 1000ML INFUSION STARTED AT 500ML/HR TO RUN OVER 2 OURS PER VERBAL ORDER FROM EDP.
[2018-10-30 06:05] LABS: BASOPHIL 1 % (0-2); EOSINOPHIL 15 % (1-4); LYMPHOCYTE 31 % (25-36); MONOCYTE 11 % (3-9); NUCLEATED RED BLOOD CELLS 1 % (0-0); SEGMENTED NEUTROPHILS 42 % (31-76)
--- NOTE | 2018-10-30 06:53 | DIREP ---
PROCEDURE:CHEST 1 VIEW COMPARISON:[facility], CT, CTA CHEST, 10/08/2018, 04:45 PM. [facility], CR, XRAY CHEST SINGLE VW, 10/08/2018, 02:54 PM. [facility], CR, XRAY CHEST SINGLE VW, 08/03/2018, 03:42 PM. INDICATIONS:weakness FINDINGS: LUNGS/PLEURA:Emphysematous changes in the upper lobes. Small patch of infiltrate at the left base VASCULATURE:Normal. Unremarkable pulmonary vasculature. CARDIAC:Normal. No cardiac silhouette abnormality or cardiomegaly. MEDIASTINUM:Normal. No visible mass or adenopathy. BONES:Normal. No fracture or visible bony lesion. OTHER:Negative. CONCLUSION: 1. Emphysema. 2. Small patch of infiltrate at the left base, likely atelectasis. Dictated by: Ankur Luna Jr. on 10/30/2018 at 06:51 AM
[2018-10-30] MEDS: KLOR-CON 10 PO SCH ×3 (08:19→21:36)
[2018-10-30] MEDS: NS 1000ML/KCL 20MEQ 1,000 ML IV SCH ×3 (08:19→21:43)
--- NOTE | 2018-10-30 08:54 | PCM.HP ---
HISTORY & PHYSICAL HISTORY & PHYSICAL DATE OF ADMISSION: CHIEF COMPLAINT: 73 yo female admitted for dizziness, n/v, and severe hypokalemia. H&P #[id number] HISTORY OF PRESENT ILLNESS: ALLERGIES: CURRENT MEDICATIONS: PAST MEDICAL HISTORY: SOCIAL HISTORY: FAMILY HISTORY: REVIEW OF SYSTEMS: PHYSICAL EXAMINATION: GENERAL: VITAL SIGNS: HEENT: NECK: LUNGS: HEART: ABDOMEN: EXTREMITIES: NEUROLOGIC: LABORATORY DATA: IMPRESSION: CARE PLAN: IZABELA BLAIR MD Oct 30, 2018 08:54
--- NOTE | 2018-10-30 09:21 | HPH ---
ADMIT DATE: 10/30/2018 CHIEF COMPLAINT: Generalized weakness, dizziness and nausea, vomiting. HISTORY OF PRESENT ILLNESS: This is a 73-year-old female with multiple medical problems including CAD, COPD, and hypertension that presents to the Emergency Department with complaints of 2-3 days of worsening dizziness, floaters and visual deficits, nausea, vomiting. She states her symptoms started approximately 2-1/2 days ago with dizziness that developed slowly. It was much worse with moving her head or changing positions of the body. She states it felt like the room was spinning. This made her nauseated, but she was not vomiting at that time. She also started becoming weaker at this time noticing more weakness in the lower extremities. Over the following 24 hours, she began having floaters and seeing dots and color spots in her vision. This was worse whenever she would go from dark rooms to light rooms. Then, over the last 24 hours, she began having significant nausea and vomiting. She had mild epigastric pain that did not radiate. She described it as sharp and intermittent. She vomited approximately 5 times and then had several episodes of diarrhea. She has not had any appetite. Of note, she has been admitted to the hospital several times over the last few months. She has recently had a ventral hernia repaired in September of this year. That has been healing well without any complications. She is not having significant pain from that site. She was most recently admitted on 10/08 for shortness of breath, worse with exertion. She has a history of COPD that is O2 dependent and she was admitted for COPD exacerbation at that time. PAST MEDICAL HISTORY: 1. CAD - the patient has 1 stent. 2. Hypertension. 3. COPD - O2 dependent. 4. Hyperlipidemia. 5. Osteoarthritis. 6. Obstructive sleep apnea. 7. GERD. 8. Chronic constipation. 9. Intrinsic asthma. MEDICATIONS: See admit medication reconciliation form. ALLERGIES: PENICILLIN, CODEINE, AND MEPERIDINE. PAST SURGICAL HISTORY: 1. Cardiac catheterization with stent placement. 2. Appendectomy. 3. History of arthroscopy. 4. Ventral hernia repair. SOCIAL HISTORY: Tobacco -- quit 10 years ago after a 24-[id number]-wqzd history. Alcohol -- denies. Recreational drugs -- denies. The patient lives with her in [place]. FAMILY HISTORY: Multiple family members with diabetes and hypertension. REVIEW OF SYSTEMS: GENERAL: Positive for overall recent weakness, fatigue and malaise. Denies fever. CARDIAC: Denies chest pain, orthopnea, PND or palpitations. RESPIRATORY: Denies shortness of breath, cough or congestion. No hemoptysis. GASTROINTESTINAL: Positive for nausea and vomiting and epigastric pain as discussed above. Also positive for diarrhea. GENITOURINARY: Denies dysuria, frequency, hematuria and nocturia. HEMATOLOGIC: No easy bleeding or bruising. ENDOCRINE: No recent weight loss or weight gain. No temperature intolerance. NEUROLOGIC: Denies headache, paresthesias or dizziness. PSYCHIATRIC: Denies depression and anxiety symptoms. SKIN: Denies any wounds, abrasions or skin lesions. MUSCULOSKELETAL: Overall weakness in generalized muscle groups. OBJECTIVE: VITAL SIGNS: Pulse 114, respirations 20, blood pressure 129/78, pulse ox 94% on 2 liters, temperature is 98.6. GENERAL: This is a weak-appearing female, in no acute distress. HEENT: Atraumatic, normocephalic. Sclerae are clear and anicteric. Oral mucosa is dry. NECK: Soft, supple, normal range of motion. No bruits, goiter, mass or adenopathy. There is no JVD. LUNGS: Clear to auscultation bilaterally. HEART: Regular rate and rhythm without murmurs, S3 or S4. ABDOMEN: Soft, nontender, nondistended. Positive bowel sounds. No masses felt. She has a midline incision with a well healing scar. EXTREMITIES: Warm and well perfused without evidence of edema, cyanosis or clubbing. NEUROLOGIC: Cranial nerves 2-12 are grossly intact and symmetric. SKIN: Intact. LABORATORY DATA: WBC 11.9, hemoglobin 13, hematocrit 40.7, platelets 376. Sodium 143, potassium 2.3, chloride 102, CO2 29.3, BUN 12, creatinine 1.31. Glucose 107, calcium 10.5, magnesium 1.6, total bilirubin 0.4, AST 17, ALT 18. Albumin 3.8, amylase 31, lipase 151. PT 10.2, PTT 22.5. Urinalysis -- no bacteria. Chest x-ray -- "emphysema, small patch of infiltrate at the left base, likely atelectasis." ASSESSMENT: 1. Severe hypokalemia. 2. Nausea and vomiting. 3. Severe generalized weakness. 4. Leukocytosis. 5. Dizziness. 6. Hypomagnesemia. 7. Left lower lobe atelectasis. 8. History of coronary artery disease. 9. History of hypertension. PLAN: 1. The patient is admitted to [facility] for further evaluation and management. 2. She will need to be on telemetry for the severity of her hypokalemia. 3. Will continue IV fluids with potassium as well as supplemental potassium by mouth and intravenously. 4. Replace magnesium aggressively to keep level at a 2 or greater. 5. Aggressive respiratory care plan with pulmonary hygiene for atelectasis. Consider repeat chest x-ray in the morning after the patient has had hydration to evaluate for possible developing pneumonia. 6. Otherwise, we will resume the patient's home medications and make changes as clinically indicated. 7. Stress ulcer and DVT prophylaxis. Hua Bragg MD DR: DION/leisa JOB# [id number]
[2018-10-30 10:42] LABS: HEMOGLOBIN 11.7 g/dL (12.0-15.0); MEAN CELL HGB 28.4 pg (26-34); MEAN CELL HGB CONCENTRATION 31.7 g/dL (33-37); MEAN CORP VOLUME 89.6 fL (78-100); MEAN PLATELET VOLUME 10.4 fL (7.8-11.0); RED CELL DISTRIBUTION WIDTH 21.1 % (11.5-14.5); WHITE BLOOD CELL 9.2 10^3/uL (4.5-11.0)
--- NOTE | 2018-10-30 11:09 | NUR ---
DISCHARGE PLAN: CASE MANAGEMENT VISITED WITH PATIENT CONCERNING DISCHARGE PLAN AND NEEDS. LIVES AT HOME WITH . HAS DME INCLUDING [employer]. CURRENTLY HAS HOME HEALTH WITH [facility]. CM SPOKE WITH ILEANA HAS FINANCIAL ABILITY TO PAY FOR MEDICATIONS UPON DISCHARGE IF NEEDED. HAS HOME OXYGEN PROVIDED BY [facility]. DR. SALAS IS-PCP. DISCHARGE GOAL IS TO DISCHARGE HOME WITH AND [facility] TO CONTINUE TO FOLLOW. CM WILL CONTINUE FOLLOW FOR DISCHARGE NEEDS.
[2018-10-30] MEDS ORDERED: TYLENOL PO ONE (19:09)
[2018-10-30] MEDS ORDERED: TYLENOL PO PRN (19:30)
[2018-10-30] MEDS ORDERED: ATROVENT IH SCH (21:00)
[2018-10-30] MEDS ORDERED: LIPITOR PO SCH (21:00)
[2018-10-30] MEDS ORDERED: VENTOLIN IH SCH (21:00)
[2018-10-30] MEDS ORDERED: BROVANA IH SCH (21:00)
[2018-10-30] MEDS: PREDNISONE PO SCH (21:36)
[2018-10-30] MEDS: MAG-OX PO SCH (21:36)
[2018-10-30] MEDS: GLUCOPHAGE PO SCH (21:37)
[2018-10-31 00:26] VITALS: BP 100/59
[2018-10-31] MEDS: VENTOLIN IH PRN ×2 (03:48→08:13)
[2018-10-31 04:17] VITALS: BP 111/71
[2018-10-31 05:59] LABS: CALCIUM 8.9 mg/dL (8.4-10.5); CARBON DIOXIDE 26.5 mmol/L (20.0-32)
[2018-10-31] MEDS: NS 1000ML/KCL 20MEQ 1,000 ML IV SCH (08:42)
[2018-10-31] MEDS: KLOR-CON 10 PO SCH ×2 (08:43→08:50)
[2018-10-31] MEDS: MAG-OX PO SCH (08:44)
[2018-10-31] MEDS: PREDNISONE PO SCH (08:44)
[2018-10-31] MEDS: GLUCOPHAGE PO SCH (08:44)
[2018-10-31] MEDS ORDERED: PROCARDIA PO SCH (09:00)
[2018-10-31] MEDS ORDERED: ATROVENT IH SCH (09:00)
[2018-10-31] MEDS ORDERED: BROVANA IH SCH (09:00)
[2018-10-31] MEDS ORDERED: PROTONIX PO SCH (09:00)
[2018-10-31] MEDS ORDERED: LASIX PO SCH (09:00)
[2018-10-31 09:04] VITALS: BP 101/60
--- NOTE | 2018-10-31 10:17 | NUR ---
IV D/C PT IV. CATHETER TIP INTACT. NO VISIBLE REDNESS OR SWELLING. INSTRUCTED PT TO LEAVE IN PLACE FOR 20 MINUTES. PT VERBALIZED UNDERSTANDING.
--- NOTE | 2018-10-31 10:51 | PRM.PN ---
Subjective Subjective Date: Oct 31, 2018 Time: 10:48 Subjective Feeling a lot better. No n/v. Yony PO. Fatigue much better. No other overnight events. Patient History: No known health problems G8 BROTHER 19 CHILD, , Age:12 19 CHILD, , Age:21 19 CHILD 19 CHILD 19 CHILD Unknown 32 MOTHER (PT ADOPTED) 33 FATHER (PT ADOPTED) No Family History of: Alzheimer's disease Asthma Cerebrovascular disorder Chronic obstructive pulmonary disease Congestive heart failure Diabetes insipidus Diabetes mellitus Hypertension Parkinson's disease VTE VTE Risk Total Score: 4 VTE Risk Score VTE Risk: Score 0-1 = Low Risk (Aggressive mobilization; early ambulation; no VTE prophylaxis required) Score 2: Moderate Risk (Intermittent/Pneumatic Compression Device OR Lovenox/Heparin/Coumadin) Score 3-4: High Risk (Intermittent/Pneumatic Compression Device AND Lovenox/Heparin/Coumadin) Score > or =5: Highest Risk (Intermittent/Pneumatic Compression Device AND Lovenox/Heparin/Coumadin) Review of Systems Constitutional: No: Fever, Chills, Sweats, Weakness, Malaise, Other Respiratory: Cough, Shortness of breath, SOB with excertion, Wheezing; No: Dry, Hemoptysis, Pleuritic Pain, Sputum, Wheezing, Other Cardiovascular: Edema; No: Chest Pain, Palpitations, Orthopnea, Paroxysmal Noc. Dyspnea, Lt Headedness, Other Gastrointestinal: No: Nausea, Vomiting, Abdominal Pain, Diarrhea, Constipation, Melena, Hematochezia, Other Genitourinary: No Dysuria, No Frequency, No Incontinence, No Hematuria, No Retention, No Other Neurological: No: Weakness, Numbness, Incoordination, Change in speech, Confusion, Seizures, Other Allergies: Coded Allergies: Penicillins (Verified Allergy, Severe, BLACKS OUT, 09/27/18) meperidine HCl (Verified Allergy, Severe, STOPS HEART, 09/27/18) codeine (Verified Allergy, Intermediate, RASH, 09/27/18) Scheduled Albuterol Sulfate (Albuterol Sulfate), 1 VIAL NEB BID, (Reported) Arformoterol Tartrate (Brovana), 1 VIAL NEB BID, (Reported) Furosemide (Lasix), 1 TAB PO DAILY Ipratropium Gar[place]ales (Ipratropium Garro[place]ales), 0.2 MG IH BID, (Reported) Lubiprostone (Amitiza), 24 MCG PO BID, (Reported) Metformin Hcl (Metformin Hcl), 500 MG PO BID, (Reported) Nifedipine (Nifedipine Er), 1 TAB PO DAILY, (Reported) Omeprazole (Omeprazole), 1 CAP PO DAILY, (Reported) Potassium Chloride (Potassium Chloride), 20 MEQ PO DAILY24 Prednisone (Prednisone), 10 MG PO BID Rosuvastatin 20MG (Crestor 20MG), 20 MG PO HS, (Reported) Scheduled PRN Albuterol Sulfate (Proair Hfa), 8.5 GM IH QID PRN for SHORTNESS OF BREATH, (Reported) Budesonide/Formoterol Fumarate (Symbicort 160-4.5 Mcg Inhaler), 2 PUFF IH BID P RN for SHORTNESS OF BREATH, (Reported) Objective Vitals and I/O Vital Sign - Last 24 Hours 10/30/18 10/30/18 10/30/18 10/30/18 11:54 11:56 12:27 16:43 Temp 98.5 97.9 98.5 97.9 Pulse 89 107 75 Resp 18 18 18 18 B/P (MAP) 129/76 (93) 109/69 (82) Pulse Ox 96 96 94 93 O2 Delivery Nasal Cannula Nasal Canula Room Air O2 Flow Rate 2.00 2.00 FiO2 28 10/30/18 10/30/18 10/30/18 10/30/18 19:01 21:00 21:01 21:03 Temp 98.0 98.0 Pulse 89 94 94 94 Resp 18 18 18 18 B/P (MAP) 108/73 (85) Pulse Ox 96 92 92 92 O2 Delivery Nasal Canula Nasal Cannula O2 Flow Rate 2.00 2.00 FiO2 10/30/18 10/31/18 10/31/18 10/31/18 23:27 00:26 03:48 03:52 Temp 97.8 97.8 Pulse 85 82 82 Resp 18 18 18 B/P (MAP) 100/59 (73) Pulse Ox 95 97 97 O2 Delivery Nasal Cannula Nasal Canula O2 Flow Rate 2.00 2.00 10/31/18 10/31/18 10/31/18 10/31/18 04:17 07:30 08:14 08:14 Temp 97.8 97.8 Pulse 83 87 73 Resp 20 18 18 B/P (MAP) 111/71 (84) Pulse Ox 94 94 O2 Delivery Nasal Canula Nasal Cannula Nasal Cannula O2 Flow Rate 2.00 2.00 2.00 FiO2 28 10/31/18 10/31/18 10/31/18 08:22 08:44 09:04 Temp 98.0 98.0 Pulse 78 88 Resp 18 18 B/P (MAP) 111/71 101/60 (74) Pulse Ox 94 O2 Delivery Nasal Canula O2 Flow Rate 2.00 Intake and Output 10/30/18 10/30/18 10/31/18 15:00 23:00 07:00 Intake Total 676 ml Output Total 900 ml 500 ml Balance -900 ml 176 ml General: Alert, Oriented X3, Cooperative, No acute distress HEENT: Atraumatic, PERRLA, EOMI Lungs: Clear to auscultation, Normal air movement Heart: Regular rate, Normal S1, Normal S2, No murmurs Abdomen: Normal bowel sounds, Soft, No tenderness Extremities: No clubbing, No cyanosis, Normal pulses Neuro: Normal gait, Normal speech, Strength at 5/5 X4 ext, Normal tone, Sensation intact, Cranial nerves 3-12 NL Psych/Mental Status: Mental status NL, Mood NL All Results(Lab/Rad) Laboratory Tests Test 10/30/18 20:58 10/31/18 05:05 Bedside Glucose 99 Sodium Level 143 mmol/L Potassium Level 3.8 mmol/L Chloride Level 109.0 mmol/L Carbon Dioxide Level 26.5 mmol/L Anion Gap 11.3 Blood Urea Nitrogen 9 mg/dL Creatinine 0.82 mg/dL Estimated GFR () 82.7 BUN/Creatinine Ratio 10.0 Glucose Level 128 mg/dL Calcium Level 8.9 mg/dL Magnesium Level 1.6 mg/dL Total Bilirubin 0.4 mg/dL Aspartate Amino Transf (AST/SGOT) 16 U/L Alanine Aminotransferase (ALT/SGPT) 15 U/L Alkaline Phosphatase 74 U/L Total Protein 5.6 g/dL Albumin 2.8 g/dL Globulin 2.8 Current Medications Medications (Trade) Dose Ordered Sig/Mary Route PRN Reason Start Time Stop Time Status Last Admin Dose Admin Ondansetron HCl (Zofran) 4 mg STAT STAT IV 10/30/18 05:05 10/30/18 05:06 DC 10/30/18 05:17 Sodium Chloride 1,000 ml @ 0 mls/hr Q0M STAT IV 10/30/18 05:06 10/30/18 05:08 DC 10/30/18 05:17 Sodium Chloride 1,000 ml @ 0 mls/hr Q0M STAT IV 10/30/18 05:06 10/30/18 05:08 DC Sodium Chloride 1,000 ml @ ud STK-MED ONCE .ROUTE 10/30/18 05:14 10/30/18 05:16 DC Ondansetron HCl (Zofran) 4 mg STK-MED ONCE .ROUTE 10/30/18 05:14 10/30/18 05:16 DC Potassium Chloride (Klor-Con 10) 10 meq STK-MED ONCE PO 10/30/18 05:34 10/30/18 05:36 DC Potassium Chloride (Potassium Chloride) 40 meq STK-MED ONCE .ROUTE 10/30/18 05:36 10/30/18 05:37 DC Potassium Chloride (Potassium Chloride) 40 meq STAT STAT PO 10/30/18 05:35 10/30/18 05:40 DC 10/30/18 05:52 Potassium Chloride/Sodium Chloride 1,000 ml @ 100 mls/hr Q10H IV 10/30/18 06:30 11/29/18 06:29 10/31/18 08:42 Potassium Chloride (Klor-Con 10) 20 meq BID PO 10/30/18 09:00 11/29/18 08:59 10/31/18 08:43 Magnesium Oxide (Mag-Ox) 400 mg BID PO 10/30/18 21:00 11/29/18 20:59 10/31/18 08:44 Albuterol Sulfate (Ventolin) 2.5 mg RTBID IH 10/30/18 21:00 10/30/18 22:12 DC 10/30/18 20:48 Arformoterol Tartrate (Brovana) 1 mcg BID IH 10/30/18 21:00 10/30/18 22:12 DC Furosemide (Lasix) 40 mg DAILY PO 10/31/18 09:00 11/30/18 08:59 10/31/18 08:44 Ipratropium [place] (Atrovent) 0.2 mg BID IH 10/30/18 21:00 10/30/18 22:12 DC 10/30/18 20:48 Metformin HCl (Glucophage) 500 mg BID PO 10/30/18 21:00 11/29/18 20:59 10/31/18 08:44 Nifedipine (Procardia) 30 mg DAILY PO 10/31/18 09:00 11/30/18 08:59 10/31/18 08:43 Prednisone (Prednisone) 10 mg BID PO 10/30/18 21:00 11/29/18 20:59 10/31/18 08:44 Pantoprazole Sodium (Protonix) 40 mg DAILY PO 10/31/18 09:00 11/30/18 08:59 10/31/18 08:43 Potassium Chloride (Klor-Con 10) 20 meq DAILY24 PO 10/30/18 10:00 11/29/18 09:59 Atorvastatin Calcium (Lipitor) 40 mg HS PO 10/30/18 21:00 11/29/18 20:59 10/30/18 21:37 Acetaminophen (Tylenol) 500 mg STK-MED ONCE PO 10/30/18 19:09 10/30/18 19:11 DC Acetaminophen (Tylenol) 1,000 mg Q6HR PRN PO FEVER 10/30/18 19:30 11/29/18 19:29 10/30/18 19:13 Albuterol Sulfate (Ventolin) 2.5 mg RTQ6 PRN IH SHORTNESS OF BREATH 10/30/18 22:30 11/29/18 20:59 10/31/18 08:13 Arformoterol Tartrate (Brovana) 15 mcg BID IH 10/31/18 09:00 11/30/18 08:59 10/31/18 08:13 Ipratropium [place] (Atrovent) 0.5 mg BID IH 10/31/18 09:00 11/30/18 08:59 10/31/18 08:13 Course Sepsis Screening Results: Posi: NEGATIVE Sepsis Qualifier/Stage: NO DEFINITE RISK Duration or Total Time Spent w: 60 MIN Vitals & review Data Vital Sign - Last 24 Hours 10/30/18 10/30/18 10/30/18 10/30/18 11:54 11:56 12:27 16:43 Temp 98.5 97.9 98.5 97.9 Pulse 89 107 75 Resp 18 18 18 18 B/P (MAP) 129/76 (93) 109/69 (82) Pulse Ox 96 96 94 93 O2 Delivery Nasal Cannula Nasal Canula Room Air O2 Flow Rate 2.00 2.00 FiO2 28 10/30/18 10/30/18 10/30/18 10/30/18 19:01 21:00 21:01 21:03 Temp 98.0 98.0 Pulse 89 94 94 94 Resp 18 18 18 18 B/P (MAP) 108/73 (85) Pulse Ox 96 92 92 92 O2 Delivery Nasal Canula Nasal Cannula O2 Flow Rate 2.00 2.00 FiO2 28 10/30/18 10/31/18 10/31/18 10/31/18 23:27 00:26 03:48 03:52 Temp 97.8 97.8 Pulse 85 82 82 Resp 18 18 18 B/P (MAP) 100/59 (73) Pulse Ox 95 97 97 O2 Delivery Nasal Cannula Nasal Canula O2 Flow Rate 2.00 2.00 10/31/18 10/31/18 10/31/18 10/31/18 04:17 07:30 08:14 08:14 Temp 97.8 97.8 Pulse 83 87 73 Resp 20 18 18 B/P (MAP) 111/71 (84) Pulse Ox 94 94 O2 Delivery Nasal Canula Nasal Cannula Nasal Cannula O2 Flow Rate 2.00 2.00 2.00 FiO2 10/31/18 10/31/18 10/31/18 08:22 08:44 09:04 Temp 98.0 98.0 Pulse 78 88 Resp 18 18 B/P (MAP) 111/71 101/60 (74) Pulse Ox 94 O2 Delivery Nasal Canula O2 Flow Rate 2.00 Intake and Output 10/30/18 10/30/18 10/31/18 15:00 23:00 07:00 Intake Total 676 ml Output Total 900 ml 500 ml Balance -900 ml 176 ml Laboratory Tests Test 10/30/18 05:08 10/30/18 05:15 10/30/18 05:23 10/30/18 10:29 Urine Collection Type VOID Urine Color YELLOW Urine Appearance CLEAR Urine Bilirubin NEGATIVE MG/DL Urine Ketones NEGATIVE Urine Specific Sully 1.010 Urine pH 6 Urine Protein NEGATIVE Urine Urobilinogen NORMAL Urine Nitrate NEGATIVE Urine Leukocyte Esterase NEGATIVE Urine Blood 10 TR Urine RBC 0-2 RBC/HPF Urine WBC 2-5 WBC/HPF Urine Squamous Epithelial Cells FEW #/HPF Urine Bacteria NONE SEEN Urine Hyaline Casts 2-5 Urine Fine Granular Casts 0-1 Urine Other 2+ MUCUS #/HPF Urine Glucose NORMAL White Blood Count 11.9 10^3/uL 9.2 10^3/uL Red Blood Count 4.62 10^6/uL 4.12 10^6/uL Hemoglobin 13.0 g/dL 11.7 g/dL Hematocrit 40.7 % 36.9 % Mean Corpuscular Volume 88.1 fL 89.6 fL Mean Corpuscular Hemoglobin 28.1 pg 28.4 pg Mean Corpuscular Hemoglobin Concent 31.9 g/dL 31.7 g/dL Red Cell Distribution Width 21.0 % 21.1 % Platelet Count 376 10^3/uL 287 10^3/uL Mean Platelet Volume 10.0 fL 10.4 fL Neutrophils (%) (Auto) 47.6 % Lymphocytes (%) (Auto) 25.9 % Monocytes (%) (Auto) 12.9 % Neutrophils # (Auto) 5.7 10^3/uL Lymphocytes # (Auto) 3.1 10^3/uL Monocytes # (Auto) 1.5 10^3/uL Absolute Immature Granulocyte (auto 0.03 10^3 u/L Immature Granulocytes % 0.30 % Eosinophils % 12.5 % Basophils % 0.8 % Basophils # 0.1 10^3/uL Eosinophil Count 1.5 10^3/uL Prothrombin Time 10.2 SEC Prothrombin Time INR (Non-Therap) 1.0 Activated Partial Thromboplast Time 22.5 SEC Sodium Level 143 mmol/L Potassium Level 2.3 mmol/L Chloride Level 102.0 mmol/L Carbon Dioxide Level 29.3 mmol/L Anion Gap 14.0 Blood Urea Nitrogen 12 mg/dL Creatinine 1.31 mg/dL Estimated GFR () 48.2 BUN/Creatinine Ratio 9.0 Glucose Level 107 mg/dL Calcium Level 10.5 mg/dL Magnesium Level 1.6 mg/dL Total Bilirubin 0.4 mg/dL Aspartate Amino Transf (AST/SGOT) 17 U/L Alanine Aminotransferase (ALT/SGPT) 18 U/L Alkaline Phosphatase 95 U/L Total Creatine Kinase 51 U/L Troponin I < 0.02 ng/mL Pro-B-Type Natriuretic Peptide 76 pg/mL Total Protein 7.5 g/dL Albumin 3.8 g/dL Globulin 3.7 Amylase Level 31 U/L Lipase 151 U/L Differential Total Cells Counted 100 #CELLS Segmented Neutrophils 42 % Lymphocytes 31 % Monocytes 11 % Absolute Eosinophils (Manual) 15 % Basophils 1 % Nucleated Red Blood Cells 1 % Platelet Estimate ADEQUATE Platelet Morphology NORMAL Blood Morphology Comment NORMAL MORPHOLOGY Test 10/30/18 20:58 10/31/18 05:05 Bedside Glucose 99 Sodium Level 143 mmol/L Potassium Level 3.8 mmol/L Chloride Level 109.0 mmol/L Carbon Dioxide Level 26.5 mmol/L Anion Gap 11.3 Blood Urea Nitrogen 9 mg/dL Creatinine 0.82 mg/dL Estimated GFR () 82.7 BUN/Creatinine Ratio 10.0 Glucose Level 128 mg/dL Calcium Level 8.9 mg/dL Magnesium Level 1.6 mg/dL Total Bilirubin 0.4 mg/dL Aspartate Amino Transf (AST/SGOT) 16 U/L Alanine Aminotransferase (ALT/SGPT) 15 U/L Alkaline Phosphatase 74 U/L Total Protein 5.6 g/dL Albumin 2.8 g/dL Globulin 2.8 Current Medications Medications (Trade) Dose Ordered Sig/Mary PRN Reason Start Time Stop Time Status Last Admin Acetaminophen (Tylenol) 1,000 mg Q6HR PRN FEVER 10/30/18 19:30 11/29/18 19:29 10/30/18 19:13 Albuterol Sulfate (Ventolin) 2.5 mg RTQ6 PRN SHORTNESS OF BREATH 10/30/18 22:30 11/29/18 20:59 10/31/18 08:13 Arformoterol Tartrate (Brovana) 15 mcg BID 10/31/18 09:00 11/30/18 08:59 10/31/18 08:13 Atorvastatin Calcium (Lipitor) 40 mg HS 10/30/18 21:00 11/29/18 20:59 10/30/18 21:37 Furosemide (Lasix) 40 mg DAILY 10/31/18 09:00 11/30/18 08:59 10/31/18 08:44 Ipratropium [place] (Atrovent) 0.5 mg BID 10/31/18 09:00 11/30/18 08:59 10/31/18 08:13 Magnesium Oxide (Mag-Ox) 400 mg BID 10/30/18 21:00 11/29/18 20:59 10/31/18 08:44 Metformin HCl (Glucophage) 500 mg BID 10/30/18 21:00 11/29/18 20:59 10/31/18 08:44 Nifedipine (Procardia) 30 mg DAILY 10/31/18 09:00 11/30/18 08:59 10/31/18 08:43 Pantoprazole Sodium (Protonix) 40 mg DAILY 10/31/18 09:00 11/30/18 08:59 10/31/18 08:43 Potassium Chloride/Sodium Chloride 1,000 ml @ 100 mls/hr Q10H 10/30/18 06:30 11/29/18 06:29 10/31/18 08:42 Potassium Chloride (Klor-Con 10) 20 meq BID 10/30/18 09:00 11/29/18 08:59 10/31/18 08:43 Potassium Chloride (Klor-Con 10) 20 meq DAILY24 10/30/18 10:00 11/29/18 09:59 Prednisone (Prednisone) 10 mg BID 10/30/18 21:00 11/29/18 20:59 10/31/18 08:44 Sepsis Infection Criteria Pres: None LEVEL 1 SEPSIS INFECTION CRITE: None/Not assessed LEVEL 2-SIRS (LIST ALL THAT AP: None/Not assessed Cardiovascular Evidence: Not Assessed or None Hematologic Evidence: None/Not assessed Hepatic Evidence: None/Not assessed Metabolic Evidence: None/Not assessed Neurological Evidence: None/Not assessed Respiratory Evidence: None/Not assessed Renal Evidence: None/Not assessed O2 Sat by Pulse Oximetry: 94 Oxygen Flow Rate: 2.00 Assessment/Plan Assessment/Plan Assessment/Plan 1. Severe hypokalemia - Much improved today. - Can d/c home after repeat dose of potassium and magnesium. 2. Nausea and vomiting - Resolved. 3. Severe generalized weakness - Improved with IV fluid. 4. Leukocytosis - Improving. - Follow up with pcp. 5. Dizziness - Resolved. 6. Hypomagnesemia - Resolving. - 1 further dose tonight. 7. Left lower lobe atelectasis. 8. History of coronary artery disease - Stable. No sx or issues. 9. History of hypertension. IZABELA BLAIR MD Oct 31, 2018 10:51
[2018-10-31] MEDS ORDERED: POTA10TA6 PO (11:14)
[2018-10-31] MEDS ORDERED: MAGN400C PO (11:14)
--- NOTE | 2018-10-31 12:05 | DSH ---
DATE OF DISCHARGE: 10/31/2018 ADMITTING DIAGNOSES: 1. Severe hypokalemia. 2. Nausea and vomiting. 3. Severe generalized weakness. 4. Leukocytosis. 5. Dizziness. 6. Hypomagnesemia. 7. Left lower lobe atelectasis. 8. History of coronary artery disease. 9. Hypertension. DISCHARGE DIAGNOSES: 1. Severe hypokalemia. 2. Nausea and vomiting. 3. Severe generalized weakness. 4. Leukocytosis. 5. Dizziness. 6. Hypomagnesemia. 7. Left lower lobe atelectasis. 8. History of coronary artery disease. 9. Hypertension. DISCHARGE MEDICATIONS: 1. Potassium chloride 20 mEq p.o. b.i.d. 2. Magnesium oxide 400 mg p.o. b.i.d. 3. Resume previous home medications. DISCHARGE DISPOSITION: Home. FOLLOWUP: Follow up with PCP and get potassium and magnesium checked within 5 days. HOSPITAL COURSE: This is a 73-year-old female that was admitted to [facility] on 10/30/2018 with severe generalized weakness, dizziness, nausea and vomiting. Upon arrival, she was found to have severely reduced potassium of 2.3. She was immediately started on aggressive IV fluid resuscitation for dehydration and nausea and vomiting. Potassium was added to her fluids and she was given additional intravenous potassium along with this. She was also given oral potassium twice daily. She was given IV and p.o. magnesium as well. She did have a mild leukocytosis of 11.9 on admission. This came down to 9.2 at the time of discharge. On 10/31/2018, her potassium was up to 3.8 and magnesium was at 1.6. She was given another dose of potassium chloride and magnesium sulfate. She was feeling much better on 10/31/2018 and tolerating p.o. and regular diet. She was not having any further symptoms. She was able to be discharged to home in stable condition with instructions that I wanted her to see her PCP within 5 days and I wanted her to have a repeat potassium and magnesium checked within 5 days. Hua Bragg MD DR: DION/leisa JOB# [id number]
--- NOTE | 2018-10-31 17:25 | NUR ---
DISCHARGE PATIENT DISCHARGED. DISCHARGE INSTRUCTIONS GIVEN TO PATIENT. PATIENT HAS NO QUESTIONS OR CONCERNS AT THIS TIME. PATIENT TRANSFERRED OFF OF UNIT VIA WHEELCHAIR WITH O2 AT 2LPM VIA NC.
[2018-10-31 17:29] VITALS: BP 101/60
== END 2018-10-31 17:54 | disposition home or self-care (01) ==
LOC: EDBD 04:30 → ER 04:30 → CANBEDREQ 06:31 → MS 06:33 → INTOOBSV 06:33 → EDPENDDISTM 10-31 11:25
PROVIDERS: ADMIT Internal Medicine; ATTEND Internal Medicine
DX: K52.9 Noninfective gastroenteritis and colitis, unspecified (principal); E87.6 Hypokalemia; E83.42 Hypomagnesemia; E78.5 Hyperlipidemia, unspecified; J44.9 Chronic obstructive pulmonary disease, unspecified; I11.0 Hypertensive heart disease with heart failure; I50.9 Heart failure, unspecified; I25.10 Atherosclerotic heart disease of native coronary artery without angina pectoris; G47.33 Obstructive sleep apnea (adult) (pediatric); K21.9 Gastro-esophageal reflux disease without esophagitis; E86.0 Dehydration; E78.00 Pure hypercholesterolemia, unspecified; M19.90 Unspecified osteoarthritis, unspecified site; Z88.0 Allergy status to penicillin; Z88.8 Allergy status to other drugs, medicaments and biological substances; Z87.891 Personal history of nicotine dependence; Z90.710 Acquired absence of both cervix and uterus
CPT/HCPCS: 36415 ×2; 71045; 80053 ×2; 81000; 82150; 82550; 82948; 83690; 83735 ×2; 83880; 84484; 85025; 85027; 85610; 85730; 93005; 94640 ×3; 96361; 96365; 96366 ×2; 96375; 99284; G0378 ×6; J2405; J3490 ×5; J7030; J7512 ×2; J7605 ×2; J7613 ×3; J7644 ×2